=== PATIENT | male | born 1955 | race Caucasian/White ===

== ENCOUNTER 2021-05-31 09:26 | Emergency (ER) | payer MEDICARE, OTHER, SELFPAY ==
[2021-05-31 09:36] VITALS: BP 173/84; PULSE 81; RESP 16; TEMP 36.6; O2SAT 96; BMI 29.1
--- NOTE | 2021-05-31 09:44 | DI.RAD.S_ITS ---
PROCEDURE: XR KNEE LT 3V INDICATIONS: GLF TECHNIQUE: 3 views of the knee were acquired. COMPARISON: None. FINDINGS: Bones: No fractures or dislocations. No suspicious bony lesions. Soft tissues: No joint effusion. No suspicious soft tissue calcifications. Note is made of a small amount of quadriceps tendon and patellar tendon insertion spurring. IMPRESSION: Normal for age except for mild patellar tendon and quadriceps tendon insertion spurring, source of current pain after trauma symptoms is not seen. Dictated by: Laci Degroot M.D. on 05/31/2021 at 10:20 Approved by: Laci Degroot M.D. on 05/31/2021 at 10:20
--- NOTE | 2021-05-31 09:45 | DI.RAD.S_ITS ---
PROCEDURE: XR SCAPULA RT INDICATIONS: GLF TECHNIQUE: 2 views of the scapula were acquired. COMPARISON: None. FINDINGS: Bones: No fractures or dislocations. No suspicious bony lesions. Visualized ribs appear intact. Soft tissues: Overlying soft tissues appear normal. IMPRESSION: Moderately severe AC joint osteoarthritis, no acute trauma found. Dictated by: Laci Degroot M.D. on 05/31/2021 at 10:20 Approved by: Laci Degroot M.D. on 05/31/2021 at 10:21
--- NOTE | 2021-05-31 12:49 | ED.LOWEXIN ---
HPI - Extremity Injury (Lower) General Chief Complaint: Extremity Injury, Lower Stated Complaint: fell yesterday/back and left knee pain Time Seen by Provider: 05/31/21 12:49 Source: patient Mode of arrival: Ambulatory Limitations: no limitations History of Present Illness HPI Narrative: This is a 65-year-old male who comes to the emergency department with complaint of fall yesterday. Patient states he started to fall backwards to his left, twisted towards his right side and fell into his ring back. Patient pain in his left knee. It is worse with weight-bearing and flexion extension. Patient also has some discomfort in his right mid back. Patient denies any bruising or skin changes. No numbness or tingling. He has not had any swelling. He is able to ambulate but is uncomfortable. Patient denies any head injury loss of consciousness. He is not on any anticoagulants. He denies any neck pain. Related Data Allergies Allergy/AdvReac Type Severity Reaction Status Date / Time No Known Drug Allergies Allergy Verified 05/31/21 09:36 Review of Systems Review of Systems ROS Unobtainable: All systems reviewed & are unremarkable except as noted in HPI and below Patient History Social History Smoking Status: Never smoker Smoking Status: Never smoker alcohol intake frequency: holidays/special occasions only Substance Use Type: does not use Exam Narrative Exam Narrative: GENERAL: Alert and oriented x three, male in mild distress patient is seated in recliner. HEENT: Head normocephalic, atraumatic, EOMI, pupils reactive, face symmetric, moist mucous membranes NECK: Supple, full range of motion CARDIOVASCULAR: Regular rate and rhythm without murmurs, rubs or gallops. RESPIRATORY: Breath sounds equal bilaterally, no wheezes rales or rhonchi. ABDOMEN: Soft, nontender. Normoactive bowel sounds all 4 quadrants. No guarding or rebound, rigidity, no mass : No CVA tenderness BACK: No cervical, thoracic or lumbar vertebral point tenderness. Patient has some mild to moderate discomfort at T11-12 over the posterior ribs. Patient is not exquisitely tender. Patient has normal range of motion. Patient's gait is antalgic. EXTREMITIES: No clubbing or edema. Neurovascularly intact. Patient has tenderness over the lateral tibia as the right knee. He has normal range of motion but it is more painful with full extension. As well as full flexion. Patient has negative joint laxity testing. No warmth, erythema. No effusion. Patient is able to weightbear. NEUROLOGICAL: Cranial nerves II through XII grossly intact. Moving all extremities SKIN: Warm, dry, no petechiae, no rashes or lesions. Initial Vital Signs Initial Vital Signs: Vital Signs Temperature 97.8 F 05/31/21 09:36 Pulse Rate 81 05/31/21 09:36 Respiratory Rate 16 05/31/21 09:36 Blood Pressure 173/84 H 05/31/21 09:36 Pulse Oximetry 96 05/31/21 09:36 Course Orders Ordered: ED Orders 05/31/21 09:44 XR knee LT 3V Stat 05/31/21 09:45 XR scapula RT Stat Vital Signs Vital signs: Vital Signs - 8 hr 05/31/21 13:14 Pulse Rate 76 Respiratory Rate 18 Pulse Oximetry 97 MDM - Extremity Injury (Lower) Imaging Data Extremity x-ray #1: Radiologist's Impression: [address] [id number] ReportSigned Patient: Jayce North [facility]#: [id number]: 1955cct:[id number]/Sex: 65 / MDate of Service: 05/31/21Loc: EDAccession Number: [id number] Procedure: XR knee LT 3V Ordering Provider: Jessi Soto D.O. PROCEDURE: XR KNEE LT 3V INDICATIONS: GLF TECHNIQUE: 3 views of the knee were acquired. COMPARISON: None. FINDINGS: Bones: No fractures or dislocations. No suspicious bony lesions. Soft tissues: No joint effusion. No suspicious soft tissue calcifications. Note is made of a small amount of quadriceps tendon and patellar tendon insertion spurring. IMPRESSION: Normal for age except for mild patellar tendon and quadriceps tendon insertion spurring, source of current pain after trauma symptoms is not seen. Dictated by: Laci Degroot M.D. on 05/31/2021 at 10:20 Approved by: Laci Degroot M.D. on 05/31/2021 at 10:20 scapula xray: Radiologist's Impression: [address] [id number] ReportSigned Patient: Jayce North [facility]#: [id number]: 1955cct:[id number]/Sex: 65 / MDate of Service: 05/31/21Loc: EDAccession Number: [id number] Procedure: XR scapula RT Ordering Provider: Jessi Soto D.O. PROCEDURE: XR SCAPULA RT INDICATIONS: GLF TECHNIQUE: 2 views of the scapula were acquired. COMPARISON: None. FINDINGS: Bones: No fractures or dislocations. No suspicious bony lesions. Visualized ribs appear intact. Soft tissues: Overlying soft tissues appear normal. IMPRESSION: Moderately severe AC joint osteoarthritis, no acute trauma found MDM Narrative Medical decision making narrative: Patient was offered crutches. He states he has these at home. Was given Mayur wrap his jeans are tight and he prefers to take this home and place it. Patient was given recommendation to follow up with primary care in the next week if he is not having any improvement. We did discuss there is potential for ligament or tendon involvement. Patient's does have some back discomfort but no other acute changes. He does not have any midline vertebral tenderness. Does not have any other red flag symptoms. Patient defers any narcotic pain medication. All questions answered return precautions discussed. Discharge Plan Departure Patient Disposition: Home Clinical Impression: Injury of knee, left, Back pain Instructions: DI for Knee Pain Activity Restrictions/Additional Instructions: Follow up with your physician next week for recheck if your symptoms are not improving. You may continue with your home medication for pain Use crutches as needed for toe-touch weight-bearing. You may advance and stop using crutches if your pain has not resolved. Use Mayur wrap to the affected area. Splint Care: Keep splint clean and dry. Elevated affected body part to decrease swelling. OK to use ice pack on the affected body part. Use for 15-20 minutes each time, for 5-6x per day. If you develop worsening pain, numbness, tingling, discoloration of the affected body part, ther see your doctor for an urgent re-assessment, or return to the Emergency Department. Return to the Emergency Department for any new or worsening symptoms. Wound Care: Keep wound(s) clean and dry. Wash daily with soap and water only. Do not use over the counter products (alcohol or peroxide)on the wounds unless instructed by a physician. If wound condition worsens (increased/expanding redness, developing fluid blisters, or worsening pain), either contact your doctor for an urgent re-assessment , or return to the Emergency Department. Return to the Emergency Department for any new or worsening symptoms. Referrals: Jonathan Chamberlain DO [Primary Care Provider] -
[2021-05-31 13:14] VITALS: PULSE 76; RESP 18; O2SAT 97
== END 2021-05-31 13:15 | disposition home or self-care (01) ==
PROVIDERS: Emergency Provider Emergency Medicine; PCP Student in an Organized Health Care Education/Training Program
DX: S89.92XA Unspecified injury of left lower leg, initial encounter (principal); M54.6 Pain in thoracic spine
CPT/HCPCS: 73010; 73562; 99283

== ENCOUNTER → 2021-09-14 12:52 | Outpatient (CLI) | payer MEDICARE, OTHER, SELFPAY ==
--- NOTE | 2021-09-14 13:02 | DI.MRI.S_ITS ---
PROCEDURE: MR KNEE LT WO CON INDICATIONS: Sprain of medial collateral ligament of left knee, TECHNIQUE: Noncontrast sagittal PD fast spin echo and T2 fast spin echo with fat saturation, sagittal 3-D FLASH with fat saturation; coronal T1 spin echo and PD fast spin echo with fat saturation, and axial PD fast spin echo with fat saturation through the knee. COMPARISON: None. FINDINGS: Image quality: Excellent. Menisci: The medial and lateral menisci demonstrate normal morphology and internal signal. The meniscal root ligaments appear intact. Cruciate ligaments: The anterior and posterior cruciate ligaments appear intact. Medial structures: Edema surrounding the MCL, compatible with grade 2 injury. Lateral structures: The lateral collateral ligament, long and short heads of the biceps femoris tendon appear intact. The popliteus tendon appears normal. The iliotibial band appears normal. Anterior structures: The quadriceps and patellar tendons appear intact. Patellar alignment is normal. Signal heterogeneity within the lateral patellar facet hyaline cartilage. No edema in the infrapatellar fat pad. Bones and cartilage: No bone marrow contusions or fractures. Signal heterogeneity and fraying of the inner medial femoral condyle hyaline cartilage. The lateral compartment hyaline cartilage is maintained. Joint space: Small knee joint fluid. 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 IMPRESSION: 1. Grade 2 injury of the MCL. 2. Small joint effusion. 3. Degenerative changes of the inner medial femoral condyle and lateral patellar facet hyaline cartilage 4. 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 Dictated by: Tony Rojas M.D. on 09/14/2021 at 14:01 Approved by: Tony Rojas M.D. on 09/14/2021 at 14:11
== END ==
PROVIDERS: PCP Student in an Organized Health Care Education/Training Program; Referring Provider Orthopaedic Surgery; Visit Provider Orthopaedic Surgery
DX: S83.412A Sprain of medial collateral ligament of left knee, initial encounter (principal); M25.462 Effusion, left knee; S89.82XA Other specified injuries of left lower leg, initial encounter
CPT/HCPCS: 73721

== ENCOUNTER 2023-08-05 09:41 | Emergency (ER) | payer MEDICARE, OTHER, SELFPAY ==
[2023-08-05] VITALS (35 sets, daily range): BP systolic 123–207; BP diastolic 62–86; PULSE 30–80; RESP 8–22; TEMP 36.3; O2SAT 95–100; BMI 29.1
--- NOTE | 2023-08-05 09:50 | DI.RAD.S_ITS ---
PROCEDURE: XR CHEST 1V INDICATIONS: chest pain TECHNIQUE: One view of the chest was acquired. COMPARISON: None. FINDINGS: Surgical changes and devices: None. Lungs and pleura: An incomplete inspiratory result is noted, causing a crowded appearance to the lung markings. No focal infiltrates are seen. No pneumothorax or significant pleural effusions are seen. Mediastinum: Mediastinal contours appear normal. Heart size is normal. Bones and chest wall: No suspicious bony lesions. Age-appropriate bony degenerative changes are seen. Overlying soft tissues appear unremarkable. IMPRESSION: Portable chest within normal limits for age. Dictated by: Chito Schaffer M.D. on 08/05/2023 at 9:58 Approved by: Chito Schaffer M.D. on 08/05/2023 at 9:58
[2023-08-05] MEDS: ASPIRIN 81 MG CHEW TAB 324 MG PO (09:57)
[2023-08-05 10:01] LABS: Add Manual Diff / Slide Review NO; Basophils Absolute Auto 200 /uL (0-100); Basophils Percent Auto 1.6 % (0-2); Eosinophils Absolute Auto 700 /uL (0-450); Eosinophils Percent Auto 6.7 % (2-4); Hematocrit 34.6 % (41-53); Hemoglobin 11.7 g/dL (13.5-17.5); Lymphocytes Absolute Auto 2000 /uL (1100-4500); Lymphocytes Percent Auto 20.7 % (25-40); Mean Corpuscular HGB Conc 33.7 % (30-36); Mean Corpuscular Hemoglobin 30.7 PG (26-34); Mean Corpuscular Volume 91.1 fL (80-100); Monocytes Absolute Auto 600 /uL (0-900); Monocytes Percent Auto 5.9 % (3-14); Neutrophils Absolute Auto 6400 /uL (1500-7000); Neutrophils Percent Auto 65.1 % (50-75); Platelet Count 242 X10^3/uL (150-400); Red Cell Distribution Width 13.9 % (11.6-14.8); White Blood Cell Count 9.8 X10^3/uL (4.5-11.0)
--- NOTE | 2023-08-05 10:14 | DI.CT.S_ITS ---
PROCEDURE: CT ANGIO HEAD AND NECK INDICATIONS: VERTIGO X2 DAYS TECHNIQUE: After the administration of intravenous contrast, 1 mm thick sections acquired from the aortic arch through the Solomon of [place]hman. 3-dimensional paybanb-hnhvdxabk-iajudjsahs (MIP) and/or volume rendering reformats were acquired of the central intracranial vasculature and neck separately. For radiation dose reduction, the following was used: automated exposure control, adjustment of mA and/or kV according to patient size. COMPARISON: [facility], CT, CT HEAD/BRAIN WO CON, 08/05/2023, 11:17. [facility], CR, XR CHEST 1V, 08/05/2023, 10:08. FINDINGS: Image quality: Diagnostic. BRAIN: CSF spaces: Ventricles are normal in size and shape. Basal cisterns are patent. No extra-axial fluid collections. Brain: No significant abnormality of the brain can be seen. Skull and face: Calvarium and facial bones appear intact, without suspicious lesions. Orbits appear normal. Sinuses: Sinuses and mastoids are clear. HEAD CT ANGIOGRAPHY: Anterior circulation: Intracranial internal carotid arteries are normal in size and flow. The flow within the paired anterior cerebral arteries is normal and symmetric. Incidental note is made of an accessory anterior cerebral artery branch emanating from the anterior communicating artery itself. The flow within the middle cerebral arteries is normal and symmetric. The anterior communicating artery is seen. No aneurysms are seen. Posterior circulation: Note is made of bilateral type origins of the posterior cerebral arteries, with an associated diminutive basilar artery. The flow within the posterior cerebral arteries is normal and symmetric. The distal vertebral arteries are overall small in size, yet otherwise unremarkable. No aneurysms are seen. NECK CT ANGIOGRAPHY: Carotid system: The great vessels demonstrate a conventional anatomy as they arise from the aortic arch. The origins of the common carotid arteries appear patent. The common carotid arteries demonstrate normal caliber and courses. The bifurcation regions demonstrate focal irregularity and calcification. There is an approximately 90% narrowing seen involving the left proximal internal carotid artery. Within the right proximal internal carotid artery, there is 60-70% narrowing. The more distal internal carotid arteries demonstrate normal course and caliber. However, the flow within the left internal carotid artery is reduced compared to the right. Posterior circulation: The origins of the vertebral arteries both appear widely patent. The more superior extracranial portions of both vertebral arteries also demonstrate normal courses and calibers. They join to form a normal appearing basilar artery. Soft tissues: Visualized neck soft tissues demonstrate no suspicious abnormalities. Bones: No suspicious bony lesions. Visualized cervical spine appears normally aligned. Moderate cervical spine degenerative change can be seen. IMPRESSION: There is a flow limiting stenosis approximately 90% within the left proximal internal carotid artery, with slightly decreased flow within the left internal carotid artery compared to the right. - Vascular surgery consultation is recommended. There is a 60-70% stenosis seen involving the right proximal internal carotid artery. No significant vertebral artery abnormality is seen. No significant intracranial arterial abnormality is seen. Additional findings: [id number]-ct-[id number] developmental anomalies Moderate cervical spine degenerative change Any quantitative measurements of stenosis were performed using NASCET criteria. Dictated by: Chito Schaffer M.D. on 08/05/2023 at 10:57 Approved by: Chito Schaffer M.D. on 08/05/2023 at 11:00
--- NOTE | 2023-08-05 10:14 | DI.CT.S_ITS ---
PROCEDURE: CT HEAD/BRAIN WO CON INDICATIONS: VERTIGO X2 DAYS TECHNIQUE: Noncontrast 4.5 mm thick angled axial sections acquired from the foramen magnum to the vertex, with coronal and sagittal reformats. For radiation dose reduction, the following was used: automated exposure control, adjustment of mA and/or kV according to patient size. COMPARISON: [facility], CT, CT ANGIO HEAD AND NECK, 08/05/2023, 11:17. FINDINGS: Image quality: Excellent. CSF spaces: Basal cisterns are patent. No extra-axial fluid collections. The ventricles are symmetric in size and shape. Brain: Areas of low density can be seen scattered throughout the brain, which are worst involving the anterior left frontal lobe. No intracranial bleeds or masses. There is cerebral volume loss for age, with resultant ventricular and sulcal prominence. There are periventricular and deep white matter chronic small vessel ischemic changes. There is intracranial internal carotid artery atherosclerosis. Skull and face: Calvarium and visualized facial bones appear intact, without suspicious lesions. Sinuses: Mild mucosal thickening can be seen within the ethmoid air cells. The paranasal sinuses otherwise appear clear. No abnormal fluid is seen within the mastoid air cells. IMPRESSION: Areas of low density can be seen scattered throughout the brain, which are worst involving the anterior left frontal lobe. Areas of prior infarction are suspected. Metastatic disease is possible, yet considered to be less likely. If it would be helpful for clinical management decision making, please consider a dedicated, scheduled brain MRI (without and with contrast) for further evaluation (assuming that there is no contraindication). Dictated by: Chito Schaffer M.D. on 08/05/2023 at 10:53 Approved by: Chito Schaffer M.D. on 08/05/2023 at 10:56
--- NOTE | 2023-08-05 10:15 | ED_ITS ---
HPI - SOB/Dyspnea General Chief Complaint: Shortness of Breath/Dyspnea Stated Complaint: SOB/dizzy/weak/lightheaded Time Seen by Provider: 08/05/23 09:56 Source: patient and family Mode of arrival: Ambulatory Limitations: no limitations History of Present Illness HPI Narrative: 67-year-old male with history of hypertension, hyperlipidemia, [id number] diabetes presents by private vehicle from home for 2 days of vertigo, shortness of breath, intermittent chest pains. Patient states that symptoms have been present for approximately 2 months, but significantly worse in the last 2 days. He states that he is having troubles doing his ADLs due to the vertigo. He is scheduled for a stress test and echo due to shortness of breath, however this is not scheduled until later this week. Denying chest pain at this time. Related Data Home Medications Medication Instructions Recorded Confirmed aspirin 81 mg tablet 81 mg PO DAILY 08/05/23 08/05/23 atorvastatin 40 mg tablet 40 mg PO DAILY 08/05/23 08/05/23 metformin 500 mg tablet,extended 500 mg PO BID 08/05/23 08/05/23 release 24 hr metoprolol succinate 50 mg 50 mg PO QAM blood pressure 08/05/23 08/05/23 tablet,extended release 24 hr sitagliptin phosphate 100 mg 100 mg PO DAILY 08/05/23 08/05/23 tablet (Januvia) tadalafil 20 mg tablet 20 mg PO DAILY PRN Erectile 08/05/23 08/05/23 Dysfunction Allergies Allergy/AdvReac Type Severity Reaction Status Date / Time No Known Drug Allergies Allergy Verified 08/05/23 09:51 Review of Systems Review of Systems Narrative: CONSTITUTIONAL- Denies: fever, chills, fatigue HEENT- Denies: sore throat, nosebleed, vision changes RESPIRATORY-reports: Shortness of breath Denies: cough, wheezing CARDIAC-reports: chest pain Denies: chest pain, edema, orthopnea GI- Denies: abdominal pain, nausea, vomiting, constipation, diarrhea - Denies: frequency, dysuria, hematuria, flank pain MSK- Denies: extremity pain, extremity swelling, joint pain, joint swelling SKIN- Denies: rash, itching, burn, swelling NEUROLOGICAL-reports: Vertigo Denies: headache, numbness, weakness, dizziness PSYCHIATRIC- Denies: anxiety, depression, suicidal ideation, homicidal ideation Patient History Social History Smoking Status: Former smoker Smoking Status: Former smoker alcohol intake frequency: holidays/special occasions only Substance Use Type: does not use Exam Initial Vital Signs Initial Vital Signs: Vital Signs Temperature 97.3 F L 08/05/23 09:45 Pulse Rate 63 08/05/23 09:45 Respiratory Rate 18 08/05/23 09:45 Blood Pressure 207/86 H 08/05/23 09:45 Pulse Oximetry 99 08/05/23 09:45 Oxygen Delivery Method Room Air 08/05/23 09:45 Const: Well-nourished, Well-developed, appears stated age Eyes: PERRL, EOMI, conjunctiva normal ENT: Atraumatic, dentition normal, mucous membranes moist Cardiac: regular rate, regular rhythm RESP: unlabored, clear bilaterally, no wheezing GI: Atraumatic, soft, nontender, nondistended, no rebound, no guarding MSK: Atraumatic, full range of motion, pulses equal Skin: Warm, Dry, intact, no rashes Neuro: AO x3, CN II-XII grossly intact, moves all extremities Psych: affect normal, mood normal, not suicidal, not homicidal Course Course Course Narrative: Nontoxic patient presenting for intermittent vertigo, worsened over the last 2 days. NIH currently 0. Vitals initially hypertensive, however after resting BP normalized. Due to vague and worsening nature of the vertigo will obtain CT brain with CT angio of head and neck. Orders Ordered: ED Orders 08/05/23 09:50 XR chest 1V Stat EKG-12 Lead Stat 08/05/23 09:55 COVID19 -Nasal RAPID Stat Complete Blood Count AUTO DIFF Stat Comprehensive Metabolic Panel Stat Lipase Stat Magnesium Stat NT-proBNP (BNP-Adult 18+) Stat PTT Partial Thromboplastin Dami Stat Prothrombin Time INR Stat Troponin & CK Cardiac Panel Stat 08/05/23 10:14 CT angio head and neck Stat CT head/brain wo con Stat 08/05/23 12:30 MR head/brain wo con Stat 08/05/23 12:46 EKG-12 Lead Routine 08/05/23 14:33 EKG-12 Lead Stat Dopamine HCl/Dextrose (Dopamine 400 Mg-D5w 250 Ml) 400 mg in 250 mls @ 8.888 mls/hr IV TITRATE JAMEEL; Protocol Last Admin: 08/05/23 14:58 Dose: 2.5 mcg/kg/min, 8.888 mls/hr Documented By: TAMERA Discontinued Medications Aspirin (Aspirin 81 Mg Chew Tab) 324 mg PO NOW ONE Stop: 08/05/23 09:51 Last Admin: 08/05/23 09:57 Dose: 324 mg Documented By: TAMERA Atropine Sulfate (Atropine 1 Mg/10 Ml Syringe) 1 mg IV NOW ONE Stop: 08/05/23 14:34 Last Admin: 08/05/23 14:36 Dose: 1 mg Documented By: JULIANO Glucagon (Glucagon,Human Recombinant 1 Mg/Ml Vial) 5 mg IV NOW ONE Stop: 08/05/23 14:39 Hydrogen Peroxide/Benzyl Alcohol (Hydrogen Peroxide 473 Ml Solution) 15 ml TOP NOW ONE Stop: 08/05/23 10:40 Reevaluation(s) Reevaluation #1: CT brain is concerning for multiple small infarcts. 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 Images pushed to [facility]. Case discussed with Neurology, who stated that the carotid artery stenosis and brain imaging findings do not explain why patient has had vertigo. They recommended getting an MRI. If the MRI shows acute infarcts and they will accept the patient for transfer for stroke workup, however if these are chronic then patient has no emergent need for transfer for CVA. MRI ordered, patient and updated of plan. Reevaluation #2: Shortly after patient arrived back from [facility] his heart rate dropped from the 50s to the 30s. EKG appeared to show complete heart block. No change in heart rate with 1 mg atropine. Patient placed on pacer pads with cardiac monitoring. Patient does take 50 mg of metoprolol, however his electrolytes are within normal limits, kidney function normal, patient has had no recent medication changes, and he is not taken any extra medications today. MRI of the brain shows old left-sided infarct, there is no evidence of the possible infarcts seen on the CT of the brain. Stat call placed to electrophysiology at [facility]. They reviewed the EKG and recommended initiating 2.5 micrograms/kilogram per minute of dopamine to see if this improves his heart rate. Ideally I would like to place a transvenous pacer, however I was informed by nursing staff that we do not have this available to us in this hospital. Discussed with EP, they requested a emergent transfer to outside hospital for rapid pacemaker placement. Call placed to schedule emergency physician and they were informed of the patient's impending transfer. Vital Signs Vital signs: Vital Signs - 8 hr 08/05/23 09:45 08/05/23 09:46 08/05/23 09:47 Temperature 97.3 F L Pulse Rate 63 80 Respiratory Rate 18 Blood Pressure 207/86 H 207/86 H Pulse Oximetry 99 99 Oxygen Delivery Method Room Air 08/05/23 09:47 08/05/23 10:00 08/05/23 10:00 Temperature Pulse Rate 78 62 Respiratory Rate 13 Blood Pressure 140/63 Pulse Oximetry 99 97 Oxygen Delivery Method Room Air 08/05/23 10:15 08/05/23 10:30 08/05/23 10:30 Temperature Pulse Rate 65 63 Respiratory Rate 15 12 Blood Pressure 136/62 Pulse Oximetry 99 97 Oxygen Delivery Method 08/05/23 10:45 08/05/23 11:00 08/05/23 11:00 Temperature Pulse Rate 61 62 Respiratory Rate 11 L 14 Blood Pressure 127/68 Pulse Oximetry 98 97 Oxygen Delivery Method 08/05/23 11:20 08/05/23 11:30 08/05/23 11:30 Temperature Pulse Rate 57 L 54 L Respiratory Rate 13 10 L Blood Pressure 149/70 H Pulse Oximetry 99 97 Oxygen Delivery Method 08/05/23 11:45 08/05/23 12:00 08/05/23 12:00 Temperature Pulse Rate 54 L 57 L Respiratory Rate 12 16 Blood Pressure 123/65 Pulse Oximetry 96 98 Oxygen Delivery Method 08/05/23 12:15 08/05/23 12:30 08/05/23 12:31 Temperature Pulse Rate 55 L 55 L 56 L Respiratory Rate 9 L 15 13 Blood Pressure Pulse Oximetry 99 100 99 Oxygen Delivery Method 08/05/23 12:31 08/05/23 12:45 08/05/23 12:46 Temperature Pulse Rate 30 L 56 L Respiratory Rate 9 L 12 Blood Pressure 193/77 H Pulse Oximetry 100 100 Oxygen Delivery Method 08/05/23 12:46 08/05/23 13:00 08/05/23 13:00 Temperature Pulse Rate 55 L Respiratory Rate 11 L Blood Pressure 140/69 145/86 H Pulse Oximetry 100 Oxygen Delivery Method 08/05/23 13:15 08/05/23 14:21 08/05/23 14:25 Temperature Pulse Rate 55 L 32 L Respiratory Rate 14 Blood Pressure 159/65 H Pulse Oximetry 100 95 Oxygen Delivery Method Room Air 08/05/23 14:25 08/05/23 14:30 08/05/23 14:36 Temperature Pulse Rate 35 L 35 L Respiratory Rate 15 8 L Blood Pressure 168/72 H Pulse Oximetry 98 100 Oxygen Delivery Method 08/05/23 14:36 08/05/23 14:39 08/05/23 14:39 Temperature Pulse Rate 35 L 35 L Respiratory Rate 13 21 Blood Pressure 164/70 H Pulse Oximetry 98 100 Oxygen Delivery Method 08/05/23 14:40 08/05/23 14:40 08/05/23 14:41 Temperature Pulse Rate 37 L Respiratory Rate 22 Blood Pressure 142/66 H 140/67 Pulse Oximetry 99 Oxygen Delivery Method 08/05/23 14:41 08/05/23 14:42 08/05/23 14:42 Temperature Pulse Rate 36 L 36 L Respiratory Rate 14 8 L Blood Pressure 152/68 H Pulse Oximetry 99 99 Oxygen Delivery Method 08/05/23 14:43 08/05/23 14:43 08/05/23 14:44 Temperature Pulse Rate 35 L 35 L Respiratory Rate 10 L 15 Blood Pressure 146/67 H Pulse Oximetry 99 100 Oxygen Delivery Method 08/05/23 14:44 08/05/23 14:45 08/05/23 14:50 Temperature Pulse Rate 35 L 36 L Respiratory Rate 12 19 Blood Pressure 150/67 H Pulse Oximetry 99 100 Oxygen Delivery Method 08/05/23 14:55 08/05/23 15:00 08/05/23 15:05 Temperature Pulse Rate 36 L 35 L 34 L Respiratory Rate 10 L 16 16 Blood Pressure 150/67 H Pulse Oximetry 100 99 99 Oxygen Delivery Method 08/05/23 15:10 Temperature Pulse Rate 35 L Respiratory Rate 20 Blood Pressure 148/68 H Pulse Oximetry 99 Oxygen Delivery Method MDM - SOB/Dyspnea Differential Diagnosis Differential diagnosis: Likely congestive heart failure, community acquired pneumonia and asthma with exacerbation Lab Data 08/05/23 09:55 08/05/23 09:55 Labs: Lab Results 08/05/23 08/05/23 08/05/23 Range/Units 09:55 09:55 09:55 WBC 9.8 (4.5-11.0) X10^3/uL RBC 3.80 L (4.5-5.9) X10^6/uL Hgb 11.7 L (13.5-17.5) g/dL Hct 34.6 L (41-53) % MCV 91.1 (80-100) fL MCH 30.7 (26-34) PG MCHC 33.7 (30-36) % RDW 13.9 (11.6-14.8) % Plt Count 242 (150-400) X10^3/uL Neut % (Auto) 65.1 (50-75) % Lymph % (Auto) 20.7 L (25-40) % Isabela % (Auto) 5.9 (3-14) % Eos % (Auto) 6.7 H (2-4) % Baso % (Auto) 1.6 (0-2) % Neut # (Auto) 6400 (3205-8775) /uL Lymph # (Auto) 2000 (1445-8478) /uL Isabela # (Auto) 600 (0-900) /uL Eos # (Auto) 700 H (0-450) /uL Baso # (Auto) 200 H (0-100) /uL PT 10.6 (10.1-12.7) SECONDS INR 0.9 (0.9-1.3) APTT 31 (26-36) SECONDS Sodium 141 (137-145) mmol/L Potassium 4.2 (3.4-5.1) mmol/L Chloride 108 H (98-107) mmol/L Carbon Dioxide 24 (22-32) mmol/L BUN 9 (9-20) mg/dL Creatinine 1.01 (0.66-1.25) mg/dL Estimated GFR > 60 (>60) mL/min BUN/Creatinine Ratio 8.9 (6-22) Glucose 143 H (80-110) mg/dL Calcium 8.8 (8.4-10.2) mg/dL Magnesium 1.8 (1.6-2.3) mg/dL Total Bilirubin 0.2 (0.2-1.3) mg/dL AST 28 (17-59) IU/L ALT 27 (<50) IU/L Alkaline Phosphatase 101 (38-126) U/L Total Creatine Kinase 126 (55-170) U/L Troponin I < 0.012 (0.01-0.034) ng/mL NT-Pro-B Natriuret Pep 318 H (<125) pg/mL Total Protein 7.3 (6.3-8.2) g/dL Albumin 4.4 (3.5-5.0) g/dL Globulin 2.9 (1.7-4.1) g/dL Albumin/Globulin Ratio 1.5 (1.0-2.8) Lipase 67 (23-300) U/L SARS-CoV-2 (PCR) (Negative) 08/05/23 Range/Units 09:55 WBC (4.5-11.0) X10^3/uL RBC (4.5-5.9) X10^6/uL Hgb (13.5-17.5) g/dL Hct (41-53) % MCV (80-100) fL MCH (26-34) PG MCHC (30-36) % RDW (11.6-14.8) % Plt Count (150-400) X10^3/uL Neut % (Auto) (50-75) % Lymph % (Auto) (25-40) % Isabela % (Auto) (3-14) % Eos % (Auto) (2-4) % Baso % (Auto) (0-2) % Neut # (Auto) (8628-4433) /uL Lymph # (Auto) (1594-1490) /uL Isabela # (Auto) (0-900) /uL Eos # (Auto) (0-450) /uL Baso # (Auto) (0-100) /uL PT (10.1-12.7) SECONDS INR (0.9-1.3) APTT (26-36) SECONDS Sodium (137-145) mmol/L Potassium (3.4-5.1) mmol/L Chloride (98-107) mmol/L Carbon Dioxide (22-32) mmol/L BUN (9-20) mg/dL Creatinine (0.66-1.25) mg/dL Estimated GFR (>60) mL/min BUN/Creatinine Ratio (6-22) Glucose (80-110) mg/dL Calcium (8.4-10.2) mg/dL Magnesium (1.6-2.3) mg/dL Total Bilirubin (0.2-1.3) mg/dL AST (17-59) IU/L ALT (<50) IU/L Alkaline Phosphatase (38-126) U/L Total Creatine Kinase (55-170) U/L Troponin I (0.01-0.034) ng/mL NT-Pro-B Natriuret Pep (<125) pg/mL Total Protein (6.3-8.2) g/dL Albumin (3.5-5.0) g/dL Globulin (1.7-4.1) g/dL Albumin/Globulin Ratio (1.0-2.8) Lipase (23-300) U/L SARS-CoV-2 (PCR) Negative (Negative) Urine Dip Bedside Urine Glucose Negative Bedside Urine Bilirubin - Negative Bedside Urine Ketone - Negative Urine Specific [place] 1.005 Bedside Urine Occult Blood - Negative Bedside Urine pH 6.0 Bedside Urine Protein - Negative Bedside Urine Urobilinogen - Negative Bedside Urine Nitrite - Negative Bedside Urine Leukocytes - Negative Esterase ECG Data Attestation: I personally reviewed and interpreted this ECG as follows: Prior ECG tracings: available for review Interpretation: Complete heart block, rate 34 beats per minute. No STEMI Critical Care Time Critical Care Time Critical Care Time: Yes Total Critical Care Time: 92 Attestation: Discussion with patient, discussion with Neurology, discussion with EP, correction of complete heart block, frequent reassessments, hemodynamic monitoring, cardiac output assessment Discharge Plan Departure Patient Disposition: [facility] Clinical Impression: CHB (complete heart block), Shortness of breath, Vertigo, Impacted ear wax Prescriptions: No Action atorvastatin 40 mg tablet 40 mg PO DAILY metoprolol succinate 50 mg tablet extended release 24 hr 50 mg PO QAM aspirin 81 mg Tablet 81 mg PO DAILY metformin 500 mg tablet extended release 24 hr 500 mg PO BID tadalafil 20 mg tablet 20 mg PO DAILY PRN (Reason: Erectile Dysfunction) Januvia 100 mg tablet 100 mg PO DAILY Referrals: Provider,John BUITRAGO [Primary Care Provider] -
[2023-08-05 10:23] LABS: INR 0.9 (0.9-1.3); Prothrombin Time 10.6 SECONDS (10.1-12.7)
[2023-08-05 10:25] LABS: PTT Partial Thromboplastin Tim 31 SECONDS (26-36)
[2023-08-05 10:26] LABS: COVID19 -Nasal RAPID Negative (Negative)
[2023-08-05 10:27] LABS: Alanine Aminotransferase 27 IU/L (<50); Albumin 4.4 g/dL (3.5-5.0); Albumin Globulin Ratio 1.5 (1.0-2.8); Alkaline Phosphatase 101 U/L (38-126); Aspartate Aminotransferase 28 IU/L (17-59); BUN Creatinine Ratio 8.9 (6-22); Bilirubin Total 0.2 mg/dL (0.2-1.3); Blood Urea Nitrogen 9 mg/dL (9-20); Calcium 8.8 mg/dL (8.4-10.2); Carbon Dioxide 24 mmol/L (22-32); Chloride 108 mmol/L (98-107); Creatine Kinase 126 U/L (55-170); Estimated Glomerular Filt Rate > 60 mL/min (>60); Globulin 2.9 g/dL (1.7-4.1); Glucose 143 mg/dL (80-110); HEMOLYSIS < 15 (0-50); Lipase 67 U/L (23-300); Magnesium 1.8 mg/dL (1.6-2.3); Potassium 4.2 mmol/L (3.4-5.1); Sodium 141 mmol/L (137-145); Total Protein 7.3 g/dL (6.3-8.2)
[2023-08-05 10:39] LABS: NT-proBNP (BNP-Adult 18+) 318 pg/mL (<125); Troponin I < 0.012 ng/mL (0.01-0.034)
--- NOTE | 2023-08-05 11:25 | PC.NURSE ---
HYdrogen peroxide, 2ml poured into bilateral ears per Dr. Barahona's verbal order.
--- NOTE | 2023-08-05 12:30 | DI.MRI.S_ITS ---
PROCEDURE: MR HEAD/BRAIN WO CON INDICATIONS: MULTIPLE INFARCTS IN BRAIN TECHNIQUE: Non-contrast axial T1 spin echo, axial T2 fast spin echo, sagittal and axial FLAIR, coronal T2 fast spin echo, axial gradient echo, axial diffusion and ADC through the brain. COMPARISON: [facility], CT, CT HEAD/BRAIN WO CON, 08/05/2023, 11:17. FINDINGS: Image quality: Excellent. CSF spaces: Ventricles appear symmetric in size and shape. Basal cisterns are patent. No extra-axial fluid collections. Brain: Small old left frontal infarct. No intracranial bleeds or mass effects. There is cerebral volume loss for age. There are periventricular and deep white matter chronic small vessel ischemic changes. Brainstem appears normal. Diffusion-weighted images show no acute ischemic insults. No chronic ischemic insults. Normal intravascular flow voids are present. Skull and face: Calvarial bone marrow is normal in signal. Orbits are normal. Sinuses: There is mild bilateral frontal, ethmoidal and maxillary sinus mucosal thickening. The mastoids are clear. IMPRESSION: 1. No acute intracranial abnormalities. 2. Small left frontal infarct. No acute cerebral ischemia. 3. Cerebral volume loss and chronic microvascular ischemic changes. 4. Mild paranasal sinus disease. Dictated by: Radha Sullivan M.D. on 08/05/2023 at 14:11 Approved by: Radha Sullivan M.D. on 08/05/2023 at 14:14
--- NOTE | 2023-08-05 14:32 | PC.NURSE ---
Pt's HR 35, Dr. Barahona notified EKG obtained. Pt complains of feeling light headed and fatigued.
[2023-08-05] MEDS: ATROPINE 1 MG/10 ML SYRINGE IV (14:36)
--- NOTE | 2023-08-05 14:52 | PC.NURSE ---
pt alert and oriented x4.
[2023-08-05] MEDS: DOPAMINE HCL IN DEXTROSE 5 % 400 MG/250 ML PLAST..BAG 8.888 MG IV (14:58)
== END 2023-08-05 15:26 | disposition short-term general hospital (02) ==
PROVIDERS: Emergency Provider Emergency Medicine
DX: I44.2 Atrioventricular block, complete (principal); R06.02 Shortness of breath; R42 Dizziness and giddiness; H61.23 Impacted cerumen, bilateral; Z20.822 Contact with and (suspected) exposure to COVID-19
CPT/HCPCS: 36415; 70450; 70496; 70498; 70551; 71045; 80053; 81003; 82550; 83690; 83735; 83880; 84484; 85025; 85610; 85730; 87635; 93005; 93010; 96365; 96375; 99285; 99291; C9803; J0461; Q9967

== ENCOUNTER 2023-10-31 11:12 | Outpatient (RCR) | payer MEDICARE, OTHER, SELFPAY ==
--- NOTE | 2023-10-31 13:56 | OT.OP.DC ---
Visit Care Team Role Provider Type Francesca Montyoa DO Family Provider Non-Staff Primary Care Provider Address: [address] [place] [address], [place], [address] Email: Maricruz Landon MD Attending Provider Non-Staff Referring Provider Address: [address] [place] [address], [address] Email: OT Outpatient OT Outpatient Adult Evaluation Start: 10/31/23 13:17 Freq: Status: Active Protocol: Document 10/31/23 13:18 AMS (Rec: 10/31/23 13:55 AMS [id number]) General Information - Adult Visit Information Visit Number 12/11 Insurance Information Medicare Session Time Visit Start Time 12:30 Visit Stop Time 13:15 Total Visit Minutes 45 Setting Treatment Setting Outpatient Care Visit Type Note Type Initial Evaluation Identification Identification Confirmed Yes Identification Confirmed By Self Assessment/Plan Assessment Treatment Assessment Jayce is a 67 year-old right hand dominant male referred to outpatient OT secondary to L MCA CVA that occurred on . PMH: essential HTN; left carotid stenosis; pacemaker, R rotator cuff injury, Type 2 DM, arthritis, cataracts. (+) wearing of glasses which supports reading /writing; (+) intent on having cataract surgery. He has an appt scheduled in January 2024 to see neuro opthalmologist. (+) wearing of glasses; has adjusted setting (s) on phone and personal computer (15-inch in size), as well as uses 2 different handheld magnifiers and a magnifying system he can position on his head w/ 2 different magnifications for viewing of coin collection. Additional Medical History gathered from WEB MOBILE DESIGNER/verbal interview: Jayce presented to ED w/ vertigo and shortness of breath on 08/05/23; MRI revealed old L sided infarct but no acute intracranial anomalies. He was transferred immediately d/t change in stats w/ emergency placement of pacemaker. Jayce is currently being seen by outpatient WEB MOBILE DESIGNER d/t word finding difficulties; he is reading and doing word searches. He and his also plan on investing in an kamala that has been recommended by outpatient WEB MOBILE DESIGNER. Jayce reported R LE pain/discomfort initially presented in May/ June of this year and that he became aware of it while navigating stairs within his home. Jayce intends on being evaluated by outpatient PT; evaluation appt is scheduled for December of 2023. He presented without mobility and AE and no losses of balance were observed. 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 He currently is not driving. He denies any difficulties w/ functional activities, including tying of shoe laces and managing buttons/zippers, although, handwriting is impacted without use of glasses and when trying to execute task too quickly. (+) awareness of need to reduce speed of execution w/ resulting improved legibility (w/ improved letter/number spacing, decreased letter/ number exclusion, and decreased dragging of pen between letter/number formation). Jayce also demonstrated good R handed dynamic grasp w/ writing tool use, good contralateral paper stabilization, and good hand/ digit strength. Dynamometer II strength findings were as follows: 110.0# of force R steamer operator (compared to 65-69 y.o. male norms 91.1 +/- 20.6) and 108.0# of force L steamer operator ( compared to 65-69 y.o. male norms 76.8 +/- 19.8). Pinchometer strength findings were as follows: 24.0# of force R lateral russo pinch ( compared to 65-69 y.o. male norms 23.4 +/- 3.9) vs 24.0# of force L lateral russo pinch ( compared to 65-69 y.o. male norms 22.0 +/- 3.6); 19.0# of force R 3-jaw pinch (compared to 65-69 y.o. male norms 21.4 +/- 3.0) vs 17.5# of force L 3 -jaw pinch (compared to 65-69 y.o. male norms 21.2 +/- 4.1); 14.0# of force R tip pinch ( compared to 65-69 y.o. male norms 17.0 +/- 4.2) vs 12.5# of force L tip pinch (compared to 65-69 y.o. male norms 15.4 +/- 2.9). Based on findings, rec d/c from outpatient OT at this time. No further OT treatment is recommended. Recommend follow-up with outpatient WEB MOBILE DESIGNER, being seen by outpatient PT, and following up w/ vision specialists. Plan Patient Recommendations Discharge from Occupational Therapy Comment Rec WEB MOBILE DESIGNER and PT Functional Wrist/Hand Scan Hand Side Sensory Assessment Sensory Profile2
== END 2023-11-05 10:36 | disposition home or self-care (01) ==
LOC: OT 11:12
PROVIDERS: Family Provider Family Medicine; PCP Family Medicine; Referring Provider Physical Medicine & Rehabilitation Hospice and Palliative Medicine; Visit Provider Physical Medicine & Rehabilitation Hospice and Palliative Medicine
DX: I63.412 Cerebral infarction due to embolism of left middle cerebral artery (principal)
CPT/HCPCS: 97165; 97530

== ENCOUNTER 2023-11-07 11:30 | Outpatient (RCR) | payer MEDICARE, OTHER, SELFPAY ==
--- NOTE | 2023-10-21 17:46 | ST.OP.ACL ---
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 Adult Cognitive Linguistic Eval Start: 10/17/23 13:27 Freq: Status: Active Protocol: Document 10/17/23 13:30 CG (Rec: 10/17/23 13:31 CG [id number]) Adult Cognitive Linguistic Evaluation Session Time Visit Start Time 11:30 Visit Stop Time 12:30 Total Visit Minutes 60 Visit Information Visit Number 1 Plan of Care Dates 10/17/23-01/17/24 Referral Referring Provider Maricruz Landon MD ( [facility]) Reason for Referral Aphasia s/p CVA Setting Assessment Location Outpatient Care Visit Type Note Type Initial evaluation Next Note Type Next Note Type Treatment Note Patient Information Identification Type Name Patient History Jayce North is a 67-year- old male presenting today for a cognitive-linguistic evaluation due to ongoing concerns about word-finding 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 His recent medical events began in August (08/05/23), in which he presented to the ED at this hospital with vertigo and shortness of breath. An MRI at the time discovered an old L sided infarct, but no acute intracranial anomalies. Shortly after MRI, pt's HR dropped to the 30's and EKG showed complete heart block. He was transferred to another hospital for emergency pacemaker placement. After this, records of medical events are unclear; however, pt states that he had multiple TIA's before being admitted to [facility] with a CVA on Sep 27. 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 The pt denies having had difficulty swallowing, and continues to deny dysphagia. The pt stated that his speech had improved since initial event, but that he continues to have difficulty with word- finding occasionally, and he has particular trouble with reading and writing. He stated he has difficulty understanding written words, and that it's very hard to read. He states he often has to read letter by letter, especially for longer words. He is also concerned about his handwriting, but does have referral for occupational therapy. His difficulties with reading are exacerbated by remaining visual deficits. Although he was unable to describe a clear visual cut, he stated that he is only able to see and focus on one or two letters at a time and that his vision impairment has caused him to stop driving. He does have a referral to see a neuro-opthamologist, which is scheduled in January. He is seeing his regular opthamologist on Oct 29. In terms of speech difficulties, he reported he has the most difficulty with word-finding of low-frequency/ high-specificity words. When he is unable to think of a word, he states that he gets frustrated. Occasionally, he will use a circumlocution/ description strategy to describe a word he can't remember. The pt also stated that he was originally planning to retire before his recent string of medical events took place; however, since his CVA, his doctors encouraged him to continue working in a familiar environment to promote cognitive-linguistic rehabilitation. Therefore the pt decided to continue work for at least a few months. Occupation Status Employed Hearing Hearing Level Normal Vision Vision Status Impaired Subjective Patient Report The pt attended his evaluation independently for the first 25 minutes before his joined with pt permission. He was pleasant, alert, oriented , and able to recall most of his recent medical history and ongoing symptoms. He independently ambulated to the evaluation room without difficulty. He had independently completed the new patient intake form, but did state that he had trouble doing so. Mental Status Alert,Responsive,Cooperative Assessment Oral Motor Examination Completed No Results Oral motor structure and function appear grossly intact for speech/swallow Informal Assessment Receptive Language Normal Yes Expressive Language Normal No Expressive Language Impairment(s) Expression of complex thoughts /ideas,Written expression Pragmatic Language Normal Yes Speech Normal No Speech Impairment(s) Slow speech rate Cognition Normal Yes Formal Assessment Standardized Test/Screener Type Quick Aphasia Battery (QAB) Administration Complete Results Word comprehension 10.00/10.00 Sentence comprehension 10./ 10.00 Word finding 9./10.00 Grammatical construction 8.13/ 10.00 Speech motor programming ..00 Repetition 9./10.00 Reading 9.17/10.00 QAB overall 9.25/10.00 In addition to the Quick Aphasia Battery, an informal probe of divergent naming was assessed in which the pt was asked to name as many animals as possible within one minute. He was able to name 12 animals before he stated his mind went blank. When asked how he felt about the task, the pt stated that divergent naming tasks were particularly difficult for him. Findings/Results Language Function Mildly impaired Cognitive Function Within functional limits Findings Based on the results of the Quick Aphasia Battery in addition to pt interview, pt history, and informal probes, the pt presents with mild nonfluent aphasia with deficits in word-finding of complex/high specificity words in addition to deficits in reading, deficits in divergent naming abilities, and suspected deficits in visual attention and phonology. Word- finding deficits cause frustration and embarassment for the pt, and reading deficits make it difficult for pt to complete IADLs including filling out forms and reading important information (e.g. medication labels). Given the pt's deficits and their emotional and functional impact, speech- language therapy is recommended once every 1-2 weeks throughout the duration of the POC with the goal of decreasing instances of word- finding and developing compensatory strategies for reading and expressive language. Cognitive Communication Deficits Self-awareness of Cognitive- Predictive awareness (able to Communication Deficits predict problem; impact of impairments) Concomitant Factors Concomitant Factors Visual field neglect Prognosis Prognosis Good Based on Cognitive status,Family support Plan of Care Speech-Language Treatment Yes Frequency once every 1-2 weeks Duration 3 months Patient/Caregiver Education Described results of evaluation,Patient expressed understanding of evaluation, Family/caregivers expressed understanding of evaluation, Family/caregivers expressed agreement with goals and treatment plan,Patient requires further education/ training,Family/caregivers require further education/ training Short Term Goals 1. Pt will complete impairment -based approaches including semantic and phonological approaches (i.e. SFA, CIVIL ESTIMATOR) with 80% accuracy independently in order to restore the semantic and phonological network. 2. Pt will demonstrate understanding of compensatory strategies for word-finding (i .e. circumlocution, first letter, category, etc) in order to decrease instances of communicative breakdown and reduce frustration with word- finding difficulties. 3. Pt will complete reading tasks by reading short paragraphs with 80% accuracy ( 80% of words read accurately) at a rate of at least 150 words per minute. Skilled Nursing Goals Pt will be able to accurately and efficiently communicate complex thoughts and ideas in order to decrease frustration and return to PLOF. Pt will understand and recall compensatory strategies for expressive language and reading/visual attention in order to promote independence with strategies outside of language therapy. Discharge Recommendations Home
--- NOTE | 2023-10-21 17:46 | ST.OPPOC ---
Physical, Occupational & Speech Therapy At [facility] Visit Care Team Role Provider Type Francesca Montoya DO Family Provider Non-Staff Primary Care Provider Address: [address] [place] [address], [place], [address] Maricruz Landon MD Attending Provider Non-Staff Referring Provider Address: [address] [place] [address], [place], [address] Speech Pathology Plan of Care Plan of Care Dates 10/17/23-01/17/24 Referring Provider Maricruz Landon MD ([facility]) Patient History Jayce North is a 67-year-old male presenting today for a cognitive-linguistic evaluation due to ongoing concerns about word-finding 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 His recent medical events began in August (08/05/23), in which he presented to the ED at this hospital with vertigo and shortness of breath. An MRI at the time discovered an old L sided infarct, but no acute intracranial anomalies. Shortly after MRI, pt's HR dropped to the 30's and EKG showed complete heart block. He was transferred to another hospital for emergency pacemaker placement. After this, records of medical events are unclear; however, pt states that he had multiple TIA's before being admitted to [facility] with a CVA on Sep 27. 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 The pt denies having had difficulty swallowing, and continues to deny dysphagia. The pt stated that his speech had improved since initial event, but that he continues to have difficulty with word-finding occasionally, and he has particular trouble with reading and writing. He stated he has difficulty understanding written words, and that it's very hard to read. He states he often has to read letter by letter, especially for longer words. He is also concerned about his handwriting, but does have referral for occupational therapy. His difficulties with reading are exacerbated by remaining visual deficits. Although he was unable to describe a clear visual cut, he stated that he is only able to see and focus on one or two letters at a time and that his vision impairment has caused him to stop driving. He does have a referral to see a neuro-opthamologist, which is scheduled in January. He is seeing his regular opthamologist on Oct 29. In terms of speech difficulties, he reported he has the most difficulty with word-finding of low -frequency/high-specificity words. When he is unable to think of a word, he states that he gets frustrated. Occasionally, he will use a circumlocution/description strategy to describe a word he can't remember. The pt also stated that he was originally planning to retire before his recent string of medical events took place; however, since his CVA, his doctors encouraged him to continue working in a familiar environment to promote cognitive-linguistic rehabilitation. Therefore the pt decided to continue work for at least a few months. Self-awareness of Cognitive- Predictive awareness (abl Communication Deficits Short Term Goals 1. Pt will complete impairment-based approaches including semantic and phonological approaches ( i.e. SFA, CROWD CONTROLLER) with 80% accuracy independently in order to restore the semantic and phonological network. 2. Pt will demonstrate understanding of compensatory strategies for word-finding (i.e. circumlocution, first letter, category, etc) in order to decrease instances of communicative breakdown and reduce frustration with word- finding difficulties. 3. Pt will complete reading tasks by reading short paragraphs with 80% accuracy (80% of words read accurately) at a rate of at least 150 words per minute. Teacher Asst Goals Pt will be able to accurately and efficiently communicate complex thoughts and ideas in order to decrease frustration and return to PLOF. Pt will understand and recall compensatory strategies for expressive language and reading/ visual attention in order to promote independence with strategies outside of language therapy. Comment: Electronically Signed by: JOHNSON Anne 10/21/23 1984 If you are in agreement with this Plan of Care, please return a signed and dated copy. I have reviewed this Plan of Care and certify that the skilled therapy services above are required to meet the patient?s needs. Physician Signature Date Printed Name and Credentials Clinical Instructor Signature Printed Name and Credentials
--- NOTE | 2023-10-21 17:47 | ST-OP ANOTE ---
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 Maricruz Landon) this date requesting signature if in agreement.
--- NOTE | 2023-10-22 11:48 | ST.OPTN ---
Visit Care Team Role Provider Type Francesca Montoya DO Family Provider Non-Staff Primary Care Provider Address: [address] [place] [address], [place], [address] Maricruz Landon MD Attending Provider Non-Staff Referring Provider Address: [address] [place] [address], [address] AMBULATORY CARE COORDINATOR Treatment Note AMBULATORY CARE COORDINATOR Treatment Note Start: 10/22/23 11:36 Freq: Status: Active Protocol: Document 10/22/23 11:36 CG (Rec: 10/22/23 11:48 CG [id number]) Speech Pathology Treatment Note Session Time Visit Start Time 10:30 Visit Stop Time 11:15 Total Visit Minutes 45 Visit Information Visit Number 2 Plan of Care Dates 10/17/23-01/17/24 Setting Treatment Setting Outpatient Care Next Note Type Next Note Type Treatment Note General Information Patient History Jayce North is a 67-year- old male presenting today for a cognitive-linguistic evaluation due to ongoing concerns about word-finding 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 His recent medical events began in August (08/05/23), in which he presented to the ED at this hospital with vertigo and shortness of breath. An MRI at the time discovered an old L sided infarct, but no acute intracranial anomalies. Shortly after MRI, pt's HR dropped to the 30's and EKG showed complete heart block. He was transferred to another hospital for emergency pacemaker placement. After this, records of medical events are unclear; however, pt states that he had multiple TIA's before being admitted to [facility] with a CVA on Sep 27. 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 The pt denies having had difficulty swallowing, and continues to deny dysphagia. The pt stated that his speech had improved since initial event, but that he continues to have difficulty with word- finding occasionally, and he has particular trouble with reading and writing. He stated he has difficulty understanding written words, and that it's very hard to read. He states he often has to read letter by letter, especially for longer words. He is also concerned about his handwriting, but does have referral for occupational therapy. His difficulties with reading are exacerbated by remaining visual deficits. Although he was unable to describe a clear visual cut, he stated that he is only able to see and focus on one or two letters at a time and that his vision impairment has caused him to stop driving. He does have a referral to see a neuro-opthamologist, which is scheduled in January. He is seeing his regular opthamologist on Oct 29. In terms of speech difficulties, he reported he has the most difficulty with word-finding of low-frequency/ high-specificity words. When he is unable to think of a word, he states that he gets frustrated. Occasionally, he will use a circumlocution/ description strategy to describe a word he can't remember. The pt also stated that he was originally planning to retire before his recent string of medical events took place; however, since his CVA, his doctors encouraged him to continue working in a familiar environment to promote cognitive-linguistic rehabilitation. Therefore the pt decided to continue work for at least a few months. Subjective Identification Type Name Observations/Patient Presentation The pt arrived early to his appointment accompanied by his , Janiya. He was alert, oriented, pleasant, and agreeable. He stated there had been no significant changes in his word-finding since being evaluated last week. Chief Complaint(s) Language Objective Short Term Goals 1. Pt will complete impairment -based approaches including semantic and phonological approaches (i.e. SFA, CONDUIT WORKER) with 80% accuracy independently in order to restore the semantic and phonological network. 2. Pt will demonstrate understanding of compensatory strategies for word-finding (i .e. circumlocution, first letter, category, etc) in order to decrease instances of communicative breakdown and reduce frustration with word- finding difficulties. 3. Pt will complete reading tasks by reading short paragraphs with 80% accuracy ( 80% of words read accurately) at a rate of at least 150 words per minute. Usp Goals Pt will be able to accurately and efficiently communicate complex thoughts and ideas in order to decrease frustration and return to PLOF. Pt will understand and recall compensatory strategies for expressive language and reading/visual attention in order to promote independence with strategies outside of language therapy. Treatment Activities Introduced compensatory strategies for word-finding ( including Delay, Describe, Association, Synonyms, First Letter, Gesture, Draw, Look it Up, Narrow it Down, Come Back Later) and provided literature/handout describing each of these strategies. Provided pt education in visual attention/scanning as well as education in compensatory strategies ( including visual anchor and self-talk for visual scanning) . Completed visual scanning activities with the pt (letter cancellation tasks as well as menu scan task) and provided visual scanning homework. Provided education in at-home apps (i.e. [employer] Therapy Apps ) for at-home reading and writing practice. Assessment Patient Response to Treatment Good Rehab Potential Good Impairments Identified Expressive language,Other Impairment comment reading, writing Progress Towards Goals Good Progress Assessment of Improvement The pt and his were highly receptive to word- finding strategies introduced this session. They were receptive to AMBULATORY CARE COORDINATOR suggestion to practice description strategy as if it is a game in order to increase carryover and home and continue strengthening linguistic network. Pt was able to complete visual scanning tasks with approximately 90% accuracy independently, only missing one letter through three cancellation tasks and only requiring minimal verbal cue to scan from top to bottom and left to right during menu task. Plan Length of Session 45 Minutes Therapeutic Contents Client Education,Cognitive- Linguistic Training,Expressive Language Training,Other Additional Areas of Treatment Visual Attention Provided Patient/Caregiver Instruction Home Exercise Program, Questions/Concerns Therapy Recommendations Continue with Current Program
--- NOTE | 2023-10-31 14:33 | ST.OPTN ---
Visit Care Team Role Provider Type Francesca Montoya DO Family Provider Non-Staff Primary Care Provider Address: [address] [place] [address], [place], [address] Maricruz Landon MD Attending Provider Non-Staff Referring Provider Address: [address] [place] [address], [address] TAILERCPA Treatment Note TAILERCPA Treatment Note Start: 10/22/23 11:36 Freq: Status: Active Protocol: Document 10/31/23 13:33 CG (Rec: 10/31/23 13:38 CG [id number]) Speech Pathology Treatment Note Session Time Visit Start Time 11:35 Visit Stop Time 12:25 Total Visit Minutes 50 Visit Information Visit Number 2 Plan of Care Dates 10/17/23-01/17/24 Setting Treatment Setting Outpatient Care Next Note Type Next Note Type Treatment Note General Information Patient History Jayce North is a 67-year- old male presenting today for a cognitive-linguistic evaluation due to ongoing concerns about word-finding 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 His recent medical events began in August (08/05/23), in which he presented to the ED at this hospital with vertigo and shortness of breath. An MRI at the time discovered an old L sided infarct, but no acute intracranial anomalies. Shortly after MRI, pt's HR dropped to the 30's and EKG showed complete heart block. He was transferred to another hospital for emergency pacemaker placement. After this, records of medical events are unclear; however, pt states that he had multiple TIA's before being admitted to [facility] with a CVA on Sep 27. 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 The pt denies having had difficulty swallowing, and continues to deny dysphagia. The pt stated that his speech had improved since initial event, but that he continues to have difficulty with word- finding occasionally, and he has particular trouble with reading and writing. He stated he has difficulty understanding written words, and that it's very hard to read. He states he often has to read letter by letter, especially for longer words. He is also concerned about his handwriting, but does have referral for occupational therapy. His difficulties with reading are exacerbated by remaining visual deficits. Although he was unable to describe a clear visual cut, he stated that he is only able to see and focus on one or two letters at a time and that his vision impairment has caused him to stop driving. He does have a referral to see a neuro-opthamologist, which is scheduled in January. He is seeing his regular opthamologist on Oct 29. In terms of speech difficulties, he reported he has the most difficulty with word-finding of low-frequency/ high-specificity words. When he is unable to think of a word, he states that he gets frustrated. Occasionally, he will use a circumlocution/ description strategy to describe a word he can't remember. The pt also stated that he was originally planning to retire before his recent string of medical events took place; however, since his CVA, his doctors encouraged him to continue working in a familiar environment to promote cognitive-linguistic rehabilitation. Therefore the pt decided to continue work for at least a few months. Subjective Identification Type Name Observations/Patient Presentation The pt arrived early to his appointment independently. He was alert, oriented, pleasant, and agreeable. Chief Complaint(s) Language Objective Short Term Goals 1. Pt will complete impairment -based approaches including semantic and phonological approaches (i.e. SFA, OBSTETRICS GYN) with 80% accuracy independently in order to restore the semantic and phonological network. 2. Pt will demonstrate understanding of compensatory strategies for word-finding (i .e. circumlocution, first letter, category, etc) in order to decrease instances of communicative breakdown and reduce frustration with word- finding difficulties. 3. Pt will complete reading tasks by reading short paragraphs with 80% accuracy ( 80% of words read accurately) at a rate of at least 150 words per minute. Elementary School Director Goals Pt will be able to accurately and efficiently communicate complex thoughts and ideas in order to decrease frustration and return to PLOF. Pt will understand and recall compensatory strategies for expressive language and reading/visual attention in order to promote independence with strategies outside of language therapy. Treatment Activities Reviewed progress with vision and reading. Discussed use of external aids to increase reading comprehension including use of portable magnifying glass for paperwork that cannot be printed in enlarged font. Discussed at- home activities to continue practicing visual scanning and reading, including word searches. Introduced Semantic Feature analysis and complete SFA tasks with everyday items (kitchen utensils, furniture). Completed describing activity in which pt was asked to describe an object to TAILERCPA without naming the object in order to increase communicative effectiveness with circumlocution/ description strategy. Assessment Patient Response to Treatment Good Rehab Potential Good Impairments Identified Expressive language,Other Impairment comment reading, writing Progress Towards Goals Good Progress Assessment of Improvement Pt was agreeable to use of external aids to improve visual processing and is planning to seek out a magnifying glass to increase font size of printed materials . He was able to complete SFA activities with approximately 70% accuracy independently, increasing to 80% accuracy given minimal verbal cues from TAILERCPA. During description exercise, pt was able to effectively use description/ circumlocution to communicate a target object with 67% accuracy independently, increasing to 100% given minimal verbal cues. He stated he will plan to buy a word search book to continue practicing visual scanning and reading during leisure time. Reviewed with Patient Progress Being Made,Home Exercise Program Patient/Caregiver Understanding Good Plan Amount of Therapy Recommended 2-3 Months Length of Session 45 Minutes Therapeutic Contents Client Education,Cognitive- Linguistic Training,Expressive Language Training,Other Additional Areas of Treatment Visual Attention Provided Patient/Caregiver Instruction Home Exercise Program, Questions/Concerns Therapy Recommendations Continue with Current Program
--- NOTE | 2023-11-07 12:42 | ST.OPDS ---
Visit Care Team Role Provider Type Francesca Montoya DO Family Provider Non-Staff Primary Care Provider Address: [address] [place] [address], [place], [address] Maricruz Landon MD Attending Provider Non-Staff Referring Provider Address: [address] [place] [address], [id number] PERSONAL LINES UNDERWRITER Discharge Summary PERSONAL LINES UNDERWRITER Treatment Note Start: 10/22/23 11:36 Freq: Status: Active Protocol: Document 11/07/23 12:32 CG (Rec: 11/07/23 12:41 CG [id number]) Speech Pathology Treatment Note Session Time Visit Start Time 11:35 Visit Stop Time 12:25 Total Visit Minutes 50 Visit Information Visit Number 3 Plan of Care Dates 10/17/23-01/17/24 Setting Treatment Setting Outpatient Care General Information Patient History Jayce North is a 67-year- old male attending speech- language therapy due to ongoing concerns about word- finding 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 His recent medical events began in August (08/05/23), in which he presented to the ED at this hospital with vertigo and shortness of breath. An MRI at the time discovered an old L sided infarct, but no acute intracranial anomalies. Shortly after MRI, pt's HR dropped to the 30's and EKG showed complete heart block. He was transferred to another hospital for emergency pacemaker placement. After this, records of medical events are unclear; however, pt states that he had multiple TIA's before being admitted to [facility] with a CVA on Sep 27. 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 The pt denies having had difficulty swallowing, and continues to deny dysphagia. The pt stated that his speech had improved since initial event, but that he continues to have difficulty with word- finding occasionally, and he has particular trouble with reading and writing. He stated he has difficulty understanding written words, and that it's very hard to read. He states he often has to read letter by letter, especially for longer words. He is also concerned about his handwriting, but does have referral for occupational therapy. His difficulties with reading are exacerbated by remaining visual deficits. Although he was unable to describe a clear visual cut, he stated that he is only able to see and focus on one or two letters at a time and that his vision impairment has caused him to stop driving. He does have a referral to see a neuro-opthamologist, which is scheduled in January. He is seeing his regular opthamologist on Oct 29. In terms of speech difficulties, he reported he has the most difficulty with word-finding of low-frequency/ high-specificity words. When he is unable to think of a word, he states that he gets frustrated. Occasionally, he will use a circumlocution/ description strategy to describe a word he can't remember. The pt also stated that he was originally planning to retire before his recent string of medical events took place; however, since his CVA, his doctors encouraged him to continue working in a familiar environment to promote cognitive-linguistic rehabilitation. Therefore the pt decided to continue work for at least a few months. Subjective Identification Type Name Observations/Patient Presentation The pt arrived early to his appointment independently. He was alert, oriented, pleasant, and agreeable. Chief Complaint(s) Language Objective Short Term Goals 1. Pt will complete impairment -based approaches including semantic and phonological approaches (i.e. SFA, COMPOSITION TILE LAYER) with 80% accuracy independently in order to restore the semantic and phonological network. 2. Pt will demonstrate understanding of compensatory strategies for word-finding (i .e. circumlocution, first letter, category, etc) in order to decrease instances of communicative breakdown and reduce frustration with word- finding difficulties. 3. Pt will complete reading tasks by reading short paragraphs with 80% accuracy ( 80% of words read accurately) at a rate of at least 150 words per minute. (DISCONTINUE ) Penitentiary Goals Pt will be able to accurately and efficiently communicate complex thoughts and ideas in order to decrease frustration and return to PLOF. Pt will understand and recall compensatory strategies for expressive language and reading/visual attention in order to promote independence with strategies outside of language therapy. Treatment Activities Reviewed progress with vision and reading, including discussing current external aids in place for reading. Reviewed progress with description strategy for word- finding difficulties. Completed non-word reading activity in order to assess phonological network. Completed describing activity in which pt was asked to describe an object to PERSONAL LINES UNDERWRITER without naming the object in order to increase communicative effectiveness with circumlocution/ description strategy. Discussed d/c plan due to pt progress with goals. Assessment Patient Response to Treatment Good Rehab Potential Good Impairments Identified Expressive language,Other Impairment comment reading, writing Progress Towards Goals Good Progress Assessment of Improvement Pt states he is using magnifying glass at home, which is helping with reading. He stated that he will be a candidate for cataract surgery starting in late December. During nonword reading exercise, the pt was able to sound out and read nonwords appropriately. Given that this skill is intact and in the absence of other symptoms of phonologically-based impairment (i.e. phonemic paraphasias), the pt's phonemic/phonological subsystem appears intact for reading. Given that his semantic system is also intact based on previous assessment, this leaves visual impairment as the only likely remaining cause of his reading difficulties. Suspect that reading will improve after cataract surgery. During description exercise, pt was able to effectively use description/circumlocution to communicate a target object with 83% accuracy independently, increasing to 100% given minimal verbal cues . He reported using this description strategy at home to resolve instances of word- finding difficulty/ communicative breakdown. Given pt's success with compensatory strategies and high overall level of function , d/c from language therapy today based on progress. Reviewed with Patient Progress Being Made,Home Exercise Program Patient/Caregiver Understanding Good Plan Length of Session 45 Minutes Therapeutic Contents Client Education,Cognitive- Linguistic Training,Expressive Language Training Additional Areas of Treatment Provided Patient/Caregiver Instruction Home Exercise Program, Questions/Concerns Therapy Recommendations Discharge
== END 2023-11-11 13:51 | disposition home or self-care (01) ==
LOC: SP 11:30
PROVIDERS: Family Provider Family Medicine; PCP Family Medicine; Referring Provider Physical Medicine & Rehabilitation Hospice and Palliative Medicine; Visit Provider Physical Medicine & Rehabilitation Hospice and Palliative Medicine
DX: I63.412 Cerebral infarction due to embolism of left middle cerebral artery (principal)
CPT/HCPCS: 92507; 96105

== ENCOUNTER 2024-01-29 09:00 | Outpatient (RCR) | payer MEDICARE, OTHER, SELFPAY ==
--- NOTE | 2023-11-21 18:06 | PT.OIE ---
Current Diagnoses Unspecified retinal vascular occlusion (11/21/23) Cerebral infarction due to embolism of left middle cerebral artery (11/21/23) Lumbago with sciatica, right side (11/21/23) Difficulty in walking, not elsewhere classified (11/21/23) Strain of muscle, fascia and tendon of the posterior muscle group at thigh level, right thigh, sequela (11/21/23) Visit Care Team Role Provider Type Francesca Montoya DO Attending Provider Non-Staff Family Provider Primary Care Provider Referring Provider Specialty: Medical Address: [address] [place] [address], [facility] Email: Physical Therapy Initial Evaluation PT-OP-A Visit Information Start: 11/20/23 18:32 Freq: Status: Active Protocol: Document 11/21/23 08:40 [facility] (Rec: 11/21/23 09:47 [facility] [id number]) Out-Patient Physical Therapy Visit Information Visit Information Visit Type Initial Evaluation Visit Note 12/11 Visit Start Time 09:00 Visit Stop Time 09:45 Total Visit Minutes 45 Visit Number 1 Number of PAPER TESTER Visits 0 PT-OP-B Current Condition Start: 11/20/23 18:32 Freq: Status: Active Protocol: Document 11/21/23 08:40 [facility] (Rec: 11/21/23 09:47 [facility] [id number]) Current Condition History of Current Condition Current Complaints CVA 2 months ago; History of Current Condition Pt reprots artierial blood clot removed in L neck w/ resulting stroke during removal Sep 27, 2023. He had a pacemaker put in on Aug 06. Vascular surgeon said there were a lot of showers of strokes. They did a CT in recovery and transfered from [facility] to [facility] acute rehab. He was there for the weekend and was released morning. He has prior vision issues. 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 Cateract surgery scheduled for [facility]. He saw OT, SYSTEMS SPECIALIST and vision therapy. OT OP dc after eval d/t no needed. He has been having pain that goes up post thigh to back. Even when going to the mailbox, he notices it. Whenever he gets out of the car, it is really annoying and he has stairs. Pain in leg started about January. 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 He has been limping since that started. At one point in the recovery room, he had vision changes and weakness in R arm. He is back to be able to use his R hand. Pt feels like he has had a slight balance issues since the stroke. Even when he goes from sit ot stand , he feels a little lightheaded. He says he can still do things, but does have to compensate d/t pacemaker. Pt reports L neck is still numb. Used to be a walker but hasn't as much since retired since 2000. He would occasionally go for a walk still w/his . Has history of L MCL sprain in 2019 . He backed up and hit a small wall of concrete blocks behind him and started to fall and his L leg got twisted. He did PT for 3 months, and its been doing well. He is noticing he is more winded going up the flight of stairs at home. Treatment Goals Patient/Caregiver Goals walk normally; be able to get up/down stairs w/o pain, be able to go for walks PT-OP-C Subjective Start: 11/20/23 18:32 Freq: Status: Active Protocol: Document 11/21/23 08:40 [facility] (Rec: 11/21/23 09:47 [facility] [id number]) OP-PT Pain Assessment Location RLE Pain Location Details post thigh to buttocks to R SI & lower lumbar region Pain Aggravating Factors Activity,Standing,Walking, Stair Climbing PT-OP-D Balance Start: 11/20/23 18:32 Freq: Status: Active Protocol: Document 11/21/23 08:40 [facility] (Rec: 11/21/23 09:47 [facility] [id number]) Balance Tests Single Limb Standing Single Limb- Right 16 sec -pain hip Single Limb- Left 15 sec PT-OP-E Functional Tests Start: 11/20/23 18:32 Freq: Status: Active Protocol: Document 11/21/23 08:40 [facility] (Rec: 11/21/23 09:47 [facility] [id number]) Functional Tests 30 Second Sit to Stand Test Score 12 Comments pt winded Five Times Sit to Stand Test Score 13 sec Functional Gait Assessment Score 22/30 PT-OP-F Manual Assessment Start: 11/20/23 18:32 Freq: Status: Active Protocol: Document 11/21/23 08:40 [facility] (Rec: 11/21/23 09:47 [facility] [id number]) Manual Assessments Soft Tissue Assessment Soft Tissue Mobility Assessment R ES & QL tight and tender Joint Mobility Assessment Joint Mobility Assessment equal greater trochanters, R iliac crest higher PT-OP-G Mobility & Gait Start: 11/20/23 18:32 Freq: Status: Active Protocol: Document 11/21/23 08:40 [facility] (Rec: 11/21/23 09:47 [facility] [id number]) OP Gait Assessment Comments Gait Comments dec stance time RLE w/lat lean w/WB PT-OP-J Posture/Palpation/Skin Start: 11/20/23 18:32 Freq: Status: Active Protocol: Document 11/21/23 08:40 [facility] (Rec: 11/21/23 09:47 [facility] [id number]) Posture Evaluation [place] Postural Classification System [facility] Postural Classifications Posterior/Posterior Vertebral Compression Test 0 Lumbar Protective Mechanism Left AP 1 Lumbar Protective Mechanism Right AP 0 Lumbar Protective Mechanism Left PA 1 Lumbar Protective Mechanism Right PA 0 Comments 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, inc kyphosis, lat trunk lean L, fwd head PT-OP-M Strength Start: 11/20/23 18:32 Freq: Status: Active Protocol: Document 11/21/23 08:40 [facility] (Rec: 11/21/23 09:47 [facility] [id number]) Hip Strength Hip Manual Muscle Testing Right Flexion (L2) 4 Good Extension (S1) 4- Good- Abduction 4 Good External Rotation 4 Good Internal Rotation 5 Normal Comments pain ER, abd, ext Left Flexion (L2) 4+ Good+ Extension (S1) 4- Good- Abduction 4 Good External Rotation 4 Good Internal Rotation 5 Normal Knee Strength Knee Manual Muscle Testing Right Flexion (S2) 4+ Good+ Extension (L3) 5 Normal Comments pain HS w/flex Left Flexion (S2) 4+ Good+ Extension (L3) 5 Normal Ankle/Foot Strength Ankle and Foot Manual Muscle Testing Right Dorsiflexion (L4) 5 Normal Plantarflexion (S1) 5 Normal Comments pain w/heel raises Left Dorsiflexion (L4) 5 Normal Plantarflexion (S1) 5 Normal Comments 20 heel raises B PT-OP-Q Treatments Start: 11/20/23 18:32 Freq: Status: Active Protocol: Document 11/21/23 08:40 [facility] (Rec: 11/21/23 09:47 [facility] [id number]) Therapeutic Exercises Supine Exercises stretch Supine Exercise Name across chest Side bilateral Reps/Minutes 30 sec ea sciatic n glide Supine Exercise Name supine active knee ext Side bilateral Reps/Minutes 10 Standing Exercises sit to stands Side bilateral Reps/Minutes 12 PT-OP-T Assessment and Plan Start: 11/20/23 18:32 Freq: Status: Active Protocol: Document 11/21/23 08:40 [facility] (Rec: 11/21/23 09:47 [facility] [id number]) Physical Therapy Assessment Rehab Potential Rehabilitation Potential Good Evaluation Complexity Number of Personal Factors/Comorbidities 3 or More Number of Body Systems Impaired 4 or More Clinical Presentation at Evaluation Evolving Impairments Impairments Activity Tolerance,Balance, Functional Activities, Functional Mobility,ROM,Soft Tissue Mobility,Strength Goals balance Impairment FGA 22; SLS 15-16 sec B pain on R Short Term Goal (STG) Pt will improve FGA to at least 25/30 to show dec fall risk STG Duration 01/05/24 Swim Instructor Goal (LTG) Pt will be abl eto do SLS for 20 sec B w/o pain to show improved balance LTG Duration 02/12 strength Short Term Goal (STG) Pt will be indep w/HEP STG Duration 01/05/24 Swim Instructor Goal (LTG) Pt will score at least 3/5 on LPM and 5/5 BLE MMT in order to allow pt to do typical daily activities w/o inc pain LTG Duration 02/13/24 walking Short Term Goal (STG) Pt will report typical daily walking does not inc pain into leg /back. STG Duration 01/05 Fpc Goal (LTG) Pt will be able to resume walks for over a mile w/o inc pain. LTG Duration 02/12 Assessment Summary Assessment Pt presents 2 months s/p CVA w /mild balance deficits but main concern is R HS pain that radiates to SI and lower lumbar with a positive R SLR indicating neural tesion. He had mildly elevated R innominate w/inc guarding on R side which is likely contributing to this. He demonstrates inc thoracic kyphosis that likely contributes to pain as he griselda pelvis fwd to try to get into more upright positioning. He would benefit from skilled PT to adress postural deficits, balance deficits, dec strength and limited mobility in order to allow him to return to typical activities w/o pain. Physical Therapy Plan Frequency and Duration Frequency of Treatment 2x/Week Duration of treatment (weeks) 12 Plan of Care Start Date 11/21/23 Plan of Care End Date 02/13/24 Therapeutic Interventions Therapeutic Interventions Balance Training,Gait Training ,Home Exercise Program,Joint Mobilizations,Manual Therapy, Neuromuscular Re-education, Orthotic/Prosthetic Management ,Patient/Caregiver Education, Self-Care/Home Management,Soft Tissue Mobilization,Taping, Therapeutic Activities, Therapeutic Exercises, Vestibular Rehabilitation Modalities Cold Pack/Ice Massage,Electric Stimulation,Hot Packs Next Visit Focus/Plan Next Note Type Treatment Note Next Visit Plan core strength, manual to pelvis and R hip and HS, review exercises, ROM test of spine
--- NOTE | 2023-11-21 18:06 | PT.OPPOC ---
Physical, Occupational & Speech Therapy At [facility] Current Diagnoses Unspecified retinal vascular occlusion (11/21/23) Cerebral infarction due to embolism of left middle cerebral artery (11/21/23) Lumbago with sciatica, right side (11/21/23) Difficulty in walking, not elsewhere classified (11/21/23) Strain of muscle, fascia and tendon of the posterior muscle group at thigh level, right thigh, sequela (11/21/23) Visit Care Team Role Provider Type Francesca Motnoya DO Attending Provider Non-Staff Family Provider Primary Care Provider Referring Provider Specialty: Medical Address: [address] [place] [address], [facility] Email: Plan Of Care PT-OP-T Assessment and Plan Start: 11/20/23 18:32 Freq: Status: Active Protocol: Document 11/21/23 08:40 [facility] (Rec: 11/21/23 09:47 [facility] [id number]) Physical Therapy Assessment Rehab Potential Rehabilitation Potential Good Evaluation Complexity Number of Personal Factors/Comorbidities 3 or More Number of Body Systems Impaired 4 or More Clinical Presentation at Evaluation Evolving Impairments Impairments Activity Tolerance,Balance, Functional Activities, Functional Mobility,ROM,Soft Tissue Mobility,Strength Goals balance Impairment FGA 22; SLS 15-16 sec B pain on R Short Term Goal (STG) Pt will improve FGA to at least 25/30 to show dec fall risk STG Duration 01/05/24 Intermediate Goal (LTG) Pt will be abl eto do SLS for 20 sec B w/o pain to show improved balance LTG Duration 02/12 strength Short Term Goal (STG) Pt will be indep w/HEP STG Duration 01/05/24 Ballet Teacher Goal (LTG) Pt will score at least 3/5 on LPM and 5/5 BLE MMT in order to allow pt to do typical daily activities w/o inc pain LTG Duration 02/13/24 walking Short Term Goal (STG) Pt will report typical daily walking does not inc pain into leg /back. STG Duration 01/05 Ballet Teacher Goal (LTG) Pt will be able to resume walks for over a mile w/o inc pain. LTG Duration 02/12 Assessment Summary Assessment Pt presents 2 months s/p CVA w /mild balance deficits but main concern is R HS pain that radiates to SI and lower lumbar with a positive R SLR indicating neural tesion. He had mildly elevated R innominate w/inc guarding on R side which is likely contributing to this. He demonstrates inc thoracic kyphosis that likely contributes to pain as he griselda pelvis fwd to try to get into more upright positioning. He would benefit from skilled PT to adress postural deficits, balance deficits, dec strength and limited mobility in order to allow him to return to typical activities w/o pain. Physical Therapy Plan Frequency and Duration Frequency of Treatment 2x/Week Duration of treatment (weeks) 12 Plan of Care Start Date 11/21/23 Plan of Care End Date 02/13/24 Therapeutic Interventions Therapeutic Interventions Balance Training,Gait Training ,Home Exercise Program,Joint Mobilizations,Manual Therapy, Neuromuscular Re-education, Orthotic/Prosthetic Management ,Patient/Caregiver Education, Self-Care/Home Management,Soft Tissue Mobilization,Taping, Therapeutic Activities, Therapeutic Exercises, Vestibular Rehabilitation Modalities Cold Pack/Ice Massage,Electric Stimulation,Hot Packs Next Visit Focus/Plan Next Note Type Treatment Note Next Visit Plan core strength, manual to pelvis and R hip and HS, review exercises, ROM test of spine Plan of Care Dates Plan of Care Start Date 11/21/23 Plan of Care End Date 02/13/24 Electronically Signed by: Vanda North, PT 11/21/23 9048 If you are in agreement with this Plan of Care, please return a signed and dated copy. I have reviewed this Plan of Care and certify that the skilled therapy services above are required to meet the patient?s needs. Physician Signature Date Printed Name and Credentials Clinical Instructor Signature Printed Name and Credentials
--- NOTE | 2023-11-26 10:42 | PT.OTN ---
Current Diagnoses Unspecified retinal vascular occlusion (11/26/23) Cerebral infarction due to embolism of left middle cerebral artery (11/26/23) Lumbago with sciatica, right side (11/26/23) Difficulty in walking, not elsewhere classified (11/26/23) Strain of muscle, fascia and tendon of the posterior muscle group at thigh level, right thigh, sequela (11/26/23) Physical Therapy Treatment Note PT-OP-A Visit Information Start: 11/20/23 18:32 Freq: Status: Active Protocol: Document 11/26/23 09:47 [facility] (Rec: 11/26/23 10:07 [facility] [id number]) Out-Patient Physical Therapy Visit Information Visit Information Visit Type Treatment Note Visit Note 01/11 Visit Start Time 09:52 Visit Stop Time 10:32 Total Visit Minutes 40 Visit Number 2 Number of REGULATORY COORDINATOR Visits 0 PT-OP-B Current Condition Start: 11/20/23 18:32 Freq: Status: Active Protocol: Document 11/21/23 08:40 [facility] (Rec: 11/21/23 09:47 [facility] [id number]) Current Condition History of Current Condition Current Complaints CVA 2 months ago; History of Current Condition Pt reprots artierial blood clot removed in L neck w/ resulting stroke during removal Sep 27, 2023. He had a pacemaker put in on Aug 06. Vascular surgeon said there were a lot of showers of strokes. They did a CT in recovery and transfered from [facility] to [facility] acute rehab. He was there for the weekend and was released morning. He has prior vision issues. 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 Cateract surgery scheduled for [facility]. He saw OT, DATA SME and vision therapy. OT OP dc after eval d/t no needed. He has been having pain that goes up post thigh to back. Even when going to the mailbox, he notices it. Whenever he gets out of the car, it is really annoying and he has stairs. Pain in leg started about January. 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 He has been limping since that started. At one point in the recovery room, he had vision changes and weakness in R arm. He is back to be able to use his R hand. Pt feels like he has had a slight balance issues since the stroke. Even when he goes from sit ot stand , he feels a little lightheaded. He says he can still do things, but does have to compensate d/t pacemaker. Pt reports L neck is still numb. Used to be a walker but hasn't as much since retired since 2000. He would occasionally go for a walk still w/his . Has history of L MCL sprain in 2019 . He backed up and hit a small wall of concrete blocks behind him and started to fall and his L leg got twisted. He did PT for 3 months, and its been doing well. He is noticing he is more winded going up the flight of stairs at home. Treatment Goals Patient/Caregiver Goals walk normally; be able to get up/down stairs w/o pain, be able to go for walks PT-OP-C Subjective Start: 11/20/23 18:32 Freq: Status: Active Protocol: Document 11/26/23 09:47 [facility] (Rec: 11/26/23 10:07 [facility] [id number]) OP-PT Subjective Patient Comments Patient Comments Pt reports he was playing w/ the dog and kicking its toy and faked it out by pretending to kick one way then kick the other and that inc his leg and LB pain which lasted to the next day. (this was 2 days ago) PT-OP-D Balance Start: 11/20/23 18:32 Freq: Status: Active Protocol: Document 11/21/23 08:40 [facility] (Rec: 11/21/23 09:47 [facility] [id number]) Balance Tests Single Limb Standing Single Limb- Right 16 sec -pain hip Single Limb- Left 15 sec PT-OP-E Functional Tests Start: 11/20/23 18:32 Freq: Status: Active Protocol: Document 11/21/23 08:40 [facility] (Rec: 11/21/23 09:47 [facility] [id number]) Functional Tests 30 Second Sit to Stand Test Score 12 Comments pt winded Five Times Sit to Stand Test Score 13 sec Functional Gait Assessment Score 22/30 PT-OP-F Manual Assessment Start: 11/20/23 18:32 Freq: Status: Active Protocol: Document 11/21/23 08:40 [facility] (Rec: 11/21/23 09:47 [facility] [id number]) Manual Assessments Soft Tissue Assessment Soft Tissue Mobility Assessment R ES & QL tight and tender Joint Mobility Assessment Joint Mobility Assessment equal greater trochanters, R iliac crest higher PT-OP-G Mobility & Gait Start: 11/20/23 18:32 Freq: Status: Active Protocol: Document 11/21/23 08:40 [facility] (Rec: 11/21/23 09:47 [facility] [id number]) OP Gait Assessment Comments Gait Comments dec stance time RLE w/lat lean w/WB PT-OP-J Posture/Palpation/Skin Start: 11/20/23 18:32 Freq: Status: Active Protocol: Document 11/21/23 08:40 [facility] (Rec: 11/21/23 09:47 [facility] [id number]) Posture Evaluation Ana Postural Classification System Ana Postural Classifications Posterior/Posterior Vertebral Compression Test 0 Lumbar Protective Mechanism Left AP 1 Lumbar Protective Mechanism Right AP 0 Lumbar Protective Mechanism Left PA 1 Lumbar Protective Mechanism Right PA 0 Comments Posture Comments slight boot turner BLEs, inc kyphosis, lat trunk lean L, fwd head PT-OP-K Range of Motion Start: 11/26/23 10:07 Freq: Status: Active Protocol: Document 11/26/23 09:47 [facility] (Rec: 11/26/23 10:10 [facility] [id number]) Lumbar Spine Range of Motion Lumbar Spine Active Percentage Flexion 50 Extension 50 Rotation Left 40 Rotation Right 40 Lateral Flexion Left 40 Lateral Flexion Right 50 Comments spine:30%, HS 70% of range-to mid [place]; pain in R spine w/SB B; pain w/L rot PT-OP-M Strength Start: 11/20/23 18:32 Freq: Status: Active Protocol: Document 11/21/23 08:40 [facility] (Rec: 11/21/23 09:47 [facility] [id number]) Hip Strength Hip Manual Muscle Testing Right Flexion (L2) 4 Good Extension (S1) 4- Good- Abduction 4 Good External Rotation 4 Good Internal Rotation 5 Normal Comments pain ER, abd, ext Left Flexion (L2) 4+ Good+ Extension (S1) 4- Good- Abduction 4 Good External Rotation 4 Good Internal Rotation 5 Normal Knee Strength Knee Manual Muscle Testing Right Flexion (S2) 4+ Good+ Extension (L3) 5 Normal Comments pain HS w/flex Left Flexion (S2) 4+ Good+ Extension (L3) 5 Normal Ankle/Foot Strength Ankle and Foot Manual Muscle Testing Right Dorsiflexion (L4) 5 Normal Plantarflexion (S1) 5 Normal Comments pain w/heel raises Left Dorsiflexion (L4) 5 Normal Plantarflexion (S1) 5 Normal Comments 20 heel raises B PT-OP-Q Treatments Start: 11/20/23 18:32 Freq: Status: Active Protocol: Document 11/26/23 09:47 [facility] (Rec: 11/26/23 10:07 [facility] [id number]) Therapeutic Exercises Supine Exercises core Supine Exercise Name abdominal sereis: 1. flex 2. diagonal 3. ext 4. flex Side bilateral Reps/Minutes 15 sec ea pelvic tilt Reps/Minutes 15 stretch Supine Exercise Name across chest Side bilateral Reps/Minutes 30 sec ea sciatic n glide Supine Exercise Name supine active knee ext Side bilateral Reps/Minutes 10 Standing Exercises sit to stands Side bilateral Reps/Minutes 12 Other Exercises AROM Other Exercise Name spine Manual Therapy Treatment Soft Tissue Mobilization HS Body Location R Mobilization Type Rolling,Sustained Pressure Intensity/Depth Moderate Body Position Supine Comments w/active HS stretch back Body Location along R SI and sup iliac crest Mobilization Type Rolling Intensity/Depth Moderate Body Position Sidelying hip Body Location R piriformis Mobilization Type Sustained Pressure Intensity/Depth Moderate Body Position Sidelying Comments w/hip IR Joint Mobilizations hip Joint R IR free the ball and inf glide FM Body Position Supine PT-OP-T Assessment and Plan Start: 11/20/23 18:32 Freq: Status: Active Protocol: Document 11/26/23 09:47 [facility] (Rec: 11/26/23 10:07 [facility] [id number]) Physical Therapy Assessment Goals balance Impairment FGA 22; SLS 15-16 sec B pain on R Short Term Goal (STG) Pt will improve FGA to at least 25/30 to show dec fall risk STG Duration 01/05/24 Mcfp Goal (LTG) Pt will be abl eto do SLS for 20 sec B w/o pain to show improved balance LTG Duration 02/12 strength Short Term Goal (STG) Pt will be indep w/HEP STG Duration 01/05/24 Frame Fixer Goal (LTG) Pt will score at least 3/5 on LPM and 5/5 BLE MMT in order to allow pt to do typical daily activities w/o inc pain LTG Duration 02/13/24 walking Short Term Goal (STG) Pt will report typical daily walking does not inc pain into leg /back. STG Duration 2/ Frame Fixer Goal (LTG) Pt will be able to resume walks for over a mile w/o inc pain. LTG Duration 02/12 Assessment Summary Assessment Pt reports relief w/manual treatment and felt like his back was looser. Pt had imrpoved R hip IR and flex after manual treatment. He required cues throughout all exercises today for form except for sit to stands. Physical Therapy Plan Frequency and Duration Frequency of Treatment 2x/Week Duration of treatment (weeks) 12 Plan of Care Start Date 11/21/23 Plan of Care End Date 02/13/24 Next Visit Focus/Plan Next Note Type Treatment Note Next Visit Plan review exercises, manual to pelvis and R hip and HS
--- NOTE | 2023-12-09 09:02 | PT.OTN ---
Current Diagnoses Unspecified retinal vascular occlusion (12/09/23) Cerebral infarction due to embolism of left middle cerebral artery (12/09/23) Lumbago with sciatica, right side (12/09/23) Difficulty in walking, not elsewhere classified (12/09/23) Strain of muscle, fascia and tendon of the posterior muscle group at thigh level, right thigh, sequela (12/09/23) Physical Therapy Treatment Note PT-OP-A Visit Information Start: 11/20/23 18:32 Freq: Status: Active Protocol: Document 12/09/23 08:21 [facility] (Rec: 12/09/23 09:02 [facility] [id number]) Out-Patient Physical Therapy Visit Information Visit Information Visit Type Treatment Note Visit Note 02/08 Visit Start Time 08:21 Visit Stop Time 09:00 Total Visit Minutes 39 Visit Number 3 Number of INSTRUMENT MAINTENANCE SUPERVISOR Visits 0 PT-OP-B Current Condition Start: 11/20/23 18:32 Freq: Status: Active Protocol: Document 11/21/23 08:40 [facility] (Rec: 11/21/23 09:47 [facility] [id number]) Current Condition History of Current Condition Current Complaints CVA 2 months ago; History of Current Condition Pt reprots artierial blood clot removed in L neck w/ resulting stroke during removal Sep 27, 2023. He had a pacemaker put in on Aug 06. Vascular surgeon said there were a lot of showers of strokes. They did a CT in recovery and transfered from [facility] to [facility] acute rehab. He was there for the weekend and was released morning. He has prior vision issues. 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 Cateract surgery scheduled for [facility]. He saw OT, PRODUCTION SANITIZER and vision therapy. OT OP dc after eval d/t no needed. He has been having pain that goes up post thigh to back. Even when going to the mailbox, he notices it. Whenever he gets out of the car, it is really annoying and he has stairs. Pain in leg started about January. 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 He has been limping since that started. At one point in the recovery room, he had vision changes and weakness in R arm. He is back to be able to use his R hand. Pt feels like he has had a slight balance issues since the stroke. Even when he goes from sit ot stand , he feels a little lightheaded. He says he can still do things, but does have to compensate d/t pacemaker. Pt reports L neck is still numb. Used to be a walker but hasn't as much since retired since 2000. He would occasionally go for a walk still w/his . Has history of L MCL sprain in 2019 . He backed up and hit a small wall of concrete blocks behind him and started to fall and his L leg got twisted. He did PT for 3 months, and its been doing well. He is noticing he is more winded going up the flight of stairs at home. Treatment Goals Patient/Caregiver Goals walk normally; be able to get up/down stairs w/o pain, be able to go for walks PT-OP-C Subjective Start: 11/20/23 18:32 Freq: Status: Active Protocol: Document 12/09/23 08:21 [facility] (Rec: 12/09/23 09:02 [facility] [id number]) OP-PT Subjective Patient Comments Patient Comments Pt reports right after xmas, he got covid. Just started feeling better so tried the exercises yesterday. PT-OP-D Balance Start: 11/20/23 18:32 Freq: Status: Active Protocol: Document 11/21/23 08:40 [facility] (Rec: 11/21/23 09:47 [facility] [id number]) Balance Tests Single Limb Standing Single Limb- Right 16 sec -pain hip Single Limb- Left 15 sec PT-OP-E Functional Tests Start: 11/20/23 18:32 Freq: Status: Active Protocol: Document 11/21/23 08:40 [facility] (Rec: 11/21/23 09:47 [facility] [id number]) Functional Tests 30 Second Sit to Stand Test Score 12 Comments pt winded Five Times Sit to Stand Test Score 13 sec Functional Gait Assessment Score 22 PT-OP-F Manual Assessment Start: 11/20/23 18:32 Freq: Status: Active Protocol: Document 11/21/23 08:40 [facility] (Rec: 11/21/23 09:47 [facility] [id number]) Manual Assessments Soft Tissue Assessment Soft Tissue Mobility Assessment R ES & QL tight and tender Joint Mobility Assessment Joint Mobility Assessment equal greater trochanters, R iliac crest higher PT-OP-G Mobility & Gait Start: 11/20/23 18:32 Freq: Status: Active Protocol: Document 11/21/23 08:40 [facility] (Rec: 11/21/23 09:47 [facility] [id number]) OP Gait Assessment Comments Gait Comments dec stance time RLE w/lat lean w/WB PT-OP-J Posture/Palpation/Skin Start: 11/20/23 18:32 Freq: Status: Active Protocol: Document 11/21/23 08:40 [facility] (Rec: 11/21/23 09:47 [facility] [id number]) Posture Evaluation Ana Postural Classification System Ana Postural Classifications Posterior/Posterior Vertebral Compression Test 0 Lumbar Protective Mechanism Left AP 1 Lumbar Protective Mechanism Right AP 0 Lumbar Protective Mechanism Left PA 1 Lumbar Protective Mechanism Right PA 0 Comments Posture Comments 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, inc kyphosis, lat trunk lean L, fwd head PT-OP-K Range of Motion Start: 11/26/23 10:07 Freq: Status: Active Protocol: Document 11/26/23 09:47 [facility] (Rec: 11/26/23 10:10 [facility] [id number]) Lumbar Spine Range of Motion Lumbar Spine Active Percentage Flexion 50 Extension 50 Rotation Left 40 Rotation Right 40 Lateral Flexion Left 40 Lateral Flexion Right 50 Comments spine:30%, HS 70% of range-to mid [place]; pain in R spine w/SB B; pain w/L rot PT-OP-M Strength Start: 11/20/23 18:32 Freq: Status: Active Protocol: Document 11/21/23 08:40 [facility] (Rec: 11/21/23 09:47 [facility] [id number]) Hip Strength Hip Manual Muscle Testing Right Flexion (L2) 4 Good Extension (S1) 4- Good- Abduction 4 Good External Rotation 4 Good Internal Rotation 5 Normal Comments pain ER, abd, ext Left Flexion (L2) 4+ Good+ Extension (S1) 4- Good- Abduction 4 Good External Rotation 4 Good Internal Rotation 5 Normal Knee Strength Knee Manual Muscle Testing Right Flexion (S2) 4+ Good+ Extension (L3) 5 Normal Comments pain HS w/flex Left Flexion (S2) 4+ Good+ Extension (L3) 5 Normal Ankle/Foot Strength Ankle and Foot Manual Muscle Testing Right Dorsiflexion (L4) 5 Normal Plantarflexion (S1) 5 Normal Comments pain w/heel raises Left Dorsiflexion (L4) 5 Normal Plantarflexion (S1) 5 Normal Comments 20 heel raises B PT-OP-Q Treatments Start: 11/20/23 18:32 Freq: Status: Active Protocol: Document 12/09/23 08:21 [facility] (Rec: 12/09/23 09:02 [facility] [id number]) Therapeutic Exercises Supine Exercises core Supine Exercise Name abdominal sereis: 1. flex 2. diagonal 3. ext 4. flex Side bilateral Reps/Minutes 3x15 sec ea pelvic tilt Reps/Minutes 15x5 sec stretch Supine Exercise Name across chest Side bilateral Reps/Minutes 30 sec ea sciatic n glide Supine Exercise Name supine active knee ext Side bilateral Reps/Minutes 10 Standing Exercises sit to stands Side bilateral Equipment Used chair Reps/Minutes 15 Comments slow Manual Therapy Treatment Soft Tissue Mobilization HS Body Location R HS and ITB Mobilization Type Rolling,Sustained Pressure Intensity/Depth Moderate Body Position Supine Comments w/active HS stretch hip Body Location R lat glues Mobilization Type Sustained Pressure Intensity/Depth Moderate Body Position Hooklying Comments w/hip IR Joint Mobilizations hip Comments R IR free the ball and inf glide FM; IR hip on axis Supine FM PT-OP-T Assessment and Plan Start: 11/20/23 18:32 Freq: Status: Active Protocol: Document 12/09/23 08:21 [facility] (Rec: 12/09/23 09:02 [facility] [id number]) Physical Therapy Assessment Goals balance Impairment FGA 22; SLS 15-16 sec B pain on R Short Term Goal (STG) Pt will improve FGA to at least 25/30 to show dec fall risk STG Duration 01/05/24 Shelter Goal (LTG) Pt will be abl eto do SLS for 20 sec B w/o pain to show improved balance LTG Duration 02/12 strength Short Term Goal (STG) Pt will be indep w/HEP STG Duration 01/05/24 Shelter Goal (LTG) Pt will score at least 3/5 on LPM and 5/5 BLE MMT in order to allow pt to do typical daily activities w/o inc pain LTG Duration 02/13/24 walking Short Term Goal (STG) Pt will report typical daily walking does not inc pain into leg /back. STG Duration 01/05 Car Coupler Goal (LTG) Pt will be able to resume walks for over a mile w/o inc pain. LTG Duration 02/12 Assessment Summary Assessment Pt required most cues w/ abdominal series exercises, but otherwise did well with mn cues. Encouraged to do one set of sit to stands for speed and one w/slow control. Physical Therapy Plan Frequency and Duration Frequency of Treatment 2x/Week Duration of treatment (weeks) 12 Plan of Care Start Date 11/21/23 Plan of Care End Date 02/13/24 Next Visit Focus/Plan Next Note Type Treatment Note Next Visit Plan advance core and hip stability , manual to pelvis and R hip/ HS
--- NOTE | 2023-12-12 15:20 | PT.OTN ---
Current Diagnoses Unspecified retinal vascular occlusion (12/12/23) Cerebral infarction due to embolism of left middle cerebral artery (12/12/23) Lumbago with sciatica, right side (12/12/23) Difficulty in walking, not elsewhere classified (12/12/23) Strain of muscle, fascia and tendon of the posterior muscle group at thigh level, right thigh, sequela (12/12/23) Physical Therapy Treatment Note PT-OP-A Visit Information Start: 11/20/23 18:32 Freq: Status: Active Protocol: Document 12/12/23 14:37 [facility] (Rec: 12/12/23 15:19 [facility] [id number]) Out-Patient Physical Therapy Visit Information Visit Information Visit Type Treatment Note Visit Note 03/11 Visit Start Time 13:36 Visit Stop Time 14:30 Total Visit Minutes 39 Visit Number 4 Number of FISH ICER Visits 0 PT-OP-B Current Condition Start: 11/20/23 18:32 Freq: Status: Active Protocol: Document 11/21/23 08:40 [facility] (Rec: 11/21/23 09:47 [facility] [id number]) Current Condition History of Current Condition Current Complaints CVA 2 months ago; History of Current Condition Pt reprots artierial blood clot removed in L neck w/ resulting stroke during removal Sep 27, 2023. He had a pacemaker put in on Aug 06. Vascular surgeon said there were a lot of showers of strokes. They did a CT in recovery and transfered from [facility] to [facility] acute rehab. He was there for the weekend and was released morning. He has prior vision issues. 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 Cateract surgery scheduled for [facility]. 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 OT OP dc after eval d/t no needed. He has been having pain that goes up post thigh to back. Even when going to the mailbox, he notices it. Whenever he gets out of the car, it is really annoying and he has stairs. Pain in leg started about January. 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 He has been limping since that started. At one point in the recovery room, he had vision changes and weakness in R arm. He is back to be able to use his R hand. Pt feels like he has had a slight balance issues since the stroke. Even when he goes from sit ot stand , he feels a little lightheaded. He says he can still do things, but does have to compensate d/t pacemaker. Pt reports L neck is still numb. Used to be a walker but hasn't as much since retired since 2000. He would occasionally go for a walk still w/his . Has history of L MCL sprain in 2019 . He backed up and hit a small wall of concrete blocks behind him and started to fall and his L leg got twisted. He did PT for 3 months, and its been doing well. He is noticing he is more winded going up the flight of stairs at home. Treatment Goals Patient/Caregiver Goals walk normally; be able to get up/down stairs w/o pain, be able to go for walks PT-OP-C Subjective Start: 11/20/23 18:32 Freq: Status: Active Protocol: Document 12/12/23 14:37 [facility] (Rec: 12/12/23 15:19 [facility] [id number]) OP-PT Subjective Patient Comments Patient Comments Pt report soreness in R SI after last session. He had to take tylenol and ibuprofen and did ice. He is sore from going up/down the stairs a lot today. PT-OP-D Balance Start: 11/20/23 18:32 Freq: Status: Active Protocol: Document 11/21/23 08:40 [facility] (Rec: 11/21/23 09:47 [facility] [id number]) Balance Tests Single Limb Standing Single Limb- Right 16 sec -pain hip Single Limb- Left 15 sec PT-OP-E Functional Tests Start: 11/20/23 18:32 Freq: Status: Active Protocol: Document 11/21/23 08:40 [facility] (Rec: 11/21/23 09:47 [facility] [id number]) Functional Tests 30 Second Sit to Stand Test Score 12 Comments pt winded Five Times Sit to Stand Test Score 13 sec Functional Gait Assessment Score 22/30 PT-OP-F Manual Assessment Start: 11/20/23 18:32 Freq: Status: Active Protocol: Document 11/21/23 08:40 [facility] (Rec: 11/21/23 09:47 [facility] [id number]) Manual Assessments Soft Tissue Assessment Soft Tissue Mobility Assessment R ES & QL tight and tender Joint Mobility Assessment Joint Mobility Assessment equal greater trochanters, R iliac crest higher PT-OP-G Mobility & Gait Start: 11/20/23 18:32 Freq: Status: Active Protocol: Document 11/21/23 08:40 [facility] (Rec: 11/21/23 09:47 [facility] [id number]) OP Gait Assessment Comments Gait Comments dec stance time RLE w/lat lean w/WB PT-OP-J Posture/Palpation/Skin Start: 11/20/23 18:32 Freq: Status: Active Protocol: Document 11/21/23 08:40 [facility] (Rec: 11/21/23 09:47 [facility] [id number]) Posture Evaluation [facility] Postural Classification System Ana Postural Classifications Posterior/Posterior Vertebral Compression Test 0 Lumbar Protective Mechanism Left AP 1 Lumbar Protective Mechanism Right AP 0 Lumbar Protective Mechanism Left PA 1 Lumbar Protective Mechanism Right PA 0 Comments Posture 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, inc kyphosis, lat trunk lean L, fwd head PT-OP-K Range of Motion Start: 11/26/23 10:07 Freq: Status: Active Protocol: Document 11/26/23 09:47 [facility] (Rec: 11/26/23 10:10 [facility] [id number]) Lumbar Spine Range of Motion Lumbar Spine Active Percentage Flexion 50 Extension 50 Rotation Left 40 Rotation Right 40 Lateral Flexion Left 40 Lateral Flexion Right 50 Comments spine:30%, HS 70% of range-to mid [place]; pain in R spine w/SB B; pain w/L rot PT-OP-M Strength Start: 11/20/23 18:32 Freq: Status: Active Protocol: Document 11/21/23 08:40 [facility] (Rec: 11/21/23 09:47 [facility] [id number]) Hip Strength Hip Manual Muscle Testing Right Flexion (L2) 4 Good Extension (S1) 4- Good- Abduction 4 Good External Rotation 4 Good Internal Rotation 5 Normal Comments pain ER, abd, ext Left Flexion (L2) 4+ Good+ Extension (S1) 4- Good- Abduction 4 Good External Rotation 4 Good Internal Rotation 5 Normal Knee Strength Knee Manual Muscle Testing Right Flexion (S2) 4+ Good+ Extension (L3) 5 Normal Comments pain HS w/flex Left Flexion (S2) 4+ Good+ Extension (L3) 5 Normal Ankle/Foot Strength Ankle and Foot Manual Muscle Testing Right Dorsiflexion (L4) 5 Normal Plantarflexion (S1) 5 Normal Comments pain w/heel raises Left Dorsiflexion (L4) 5 Normal Plantarflexion (S1) 5 Normal Comments 20 heel raises B PT-OP-Q Treatments Start: 11/20/23 18:32 Freq: Status: Active Protocol: Document 12/12/23 14:37 [facility] (Rec: 12/12/23 15:19 [facility] [id number]) Therapeutic Exercises Supine Exercises core Supine Exercise Name abdominal sereis: 1. flex 2. diagonal 3. ext 4. flex Side bilateral Reps/Minutes 30 sec pelvic tilt Reps/Minutes 5 Comments stopped d/t pain stretch Supine Exercise Name across chest Side bilateral Reps/Minutes 30 sec ea sciatic n glide Supine Exercise Name supine active knee ext Side bilateral Reps/Minutes 10 Sitting Exercises pelvic tilts Reps/Minutes 10 Standing Exercises sit to stands Standing Exercise Name 1. fast 2. slow Side bilateral Equipment Used chair Reps/Minutes 15 ea Manual Therapy Treatment Soft Tissue Mobilization back Body Location along R SI and sup iliac crest & QL &ES Mobilization Type Rolling Intensity/Depth Moderate Body Position Sidelying Joint Mobilizations Innominate Joint R UPA FM sacrum Joint R UPA FM seated lumbar Comments L4 and 5 L down and back FM Self-Care/Home Management Treatment Education Other Education 8 min: edu on centralization of pain and that is good that pain in more in back and not down leg as much. edu to cont to ice back PT-OP-T Assessment and Plan Start: 11/20/23 18:32 Freq: Status: Active Protocol: Document 12/12/23 14:37 [facility] (Rec: 12/12/23 15:19 [facility] [id number]) Physical Therapy Assessment Goals balance Impairment FGA 22; SLS 15-16 sec B pain on R Short Term Goal (STG) Pt will improve FGA to at least 25/30 to show dec fall risk STG Duration 01/05/24 Government Instructor Goal (LTG) Pt will be abl eto do SLS for 20 sec B w/o pain to show improved balance LTG Duration 3 strength Short Term Goal (STG) Pt will be indep w/HEP STG Duration 01/05/24 Snf Goal (LTG) Pt will score at least 3/5 on LPM and 5/5 BLE MMT in order to allow pt to do typical daily activities w/o inc pain LTG Duration 02/13/24 walking Short Term Goal (STG) Pt will report typical daily walking does not inc pain into leg /back. STG Duration 2/ Snf Goal (LTG) Pt will be able to resume walks for over a mile w/o inc pain. LTG Duration 02/12 Assessment Summary Assessment Pt is improving w/more centralization of symptoms but significnat SI pain but noted less pain after. very min cues needed w/exercises and pt is indep. Pelvic tilts changed from supine to sitting as supine inc pain Physical Therapy Plan Frequency and Duration Frequency of Treatment 2x/Week Duration of treatment (weeks) 12 Plan of Care Start Date 11/21/23 Plan of Care End Date 02/13/24 Next Visit Focus/Plan Next Note Type Treatment Note Next Visit Plan advance core and hip stability , manual to pelvis and R hip/ HS
--- NOTE | 2023-12-16 09:50 | PT.OTN ---
Current Diagnoses Unspecified retinal vascular occlusion (12/16/23) Cerebral infarction due to embolism of left middle cerebral artery (12/16/23) Lumbago with sciatica, right side (12/16/23) Difficulty in walking, not elsewhere classified (12/16/23) Strain of muscle, fascia and tendon of the posterior muscle group at thigh level, right thigh, sequela (12/16/23) Physical Therapy Treatment Note PT-OP-A Visit Information Start: 11/20/23 18:32 Freq: Status: Active Protocol: Document 12/16/23 09:07 [facility] (Rec: 12/16/23 09:52 [facility] [id number]) Out-Patient Physical Therapy Visit Information Visit Information Visit Type Treatment Note Visit Note 04/10 Visit Start Time 09:07 Visit Stop Time 09:50 Total Visit Minutes 42 Visit Number 5 Number of BEACH ATTENDANT Visits 1 PT-OP-B Current Condition Start: 11/20/23 18:32 Freq: Status: Active Protocol: Document 11/21/23 08:40 [facility] (Rec: 11/21/23 09:47 [facility] [id number]) Current Condition History of Current Condition Current Complaints CVA 2 months ago; History of Current Condition Pt reprots artierial blood clot removed in L neck w/ resulting stroke during removal Sep 27, 2023. He had a pacemaker put in on Aug 06. Vascular surgeon said there were a lot of showers of strokes. They did a CT in recovery and transfered from [facility] to [facility] rehab. He was there for the weekend and was released morning. He has prior vision issues. 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 Cateract surgery scheduled for [facility]. 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 OT OP dc after eval d/t no needed. He has been having pain that goes up post thigh to back. Even when going to the mailbox, he notices it. Whenever he gets out of the car, it is really annoying and he has stairs. Pain in leg started about January. 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 He has been limping since that started. At one point in the recovery room, he had vision changes and weakness in R arm. He is back to be able to use his R hand. Pt feels like he has had a slight balance issues since the stroke. Even when he goes from sit ot stand , he feels a little lightheaded. He says he can still do things, but does have to compensate d/t pacemaker. Pt reports L neck is still numb. Used to be a walker but hasn't as much since retired since 2000. He would occasionally go for a walk still w/his . Has history of L MCL sprain in 2019 . He backed up and hit a small wall of concrete blocks behind him and started to fall and his L leg got twisted. He did PT for 3 months, and its been doing well. He is noticing he is more winded going up the flight of stairs at home. Treatment Goals Patient/Caregiver Goals walk normally; be able to get up/down stairs w/o pain, be able to go for walks PT-OP-C Subjective Start: 11/20/23 18:32 Freq: Status: Active Protocol: Document 12/16/23 09:07 [facility] (Rec: 12/16/23 09:52 [facility] [id number]) OP-PT Subjective Patient Comments Patient Comments Pt reports was pretty sore after last tx, need take Tylenol and used ice for recovery. Compliant with HEP. 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 PT-OP-D Balance Start: 11/20/23 18:32 Freq: Status: Active Protocol: Document 11/21/23 08:40 [facility] (Rec: 11/21/23 09:47 [facility] [id number]) Balance Tests Single Limb Standing Single Limb- Right 16 sec -pain hip Single Limb- Left 15 sec PT-OP-E Functional Tests Start: 11/20/23 18:32 Freq: Status: Active Protocol: Document 11/21/23 08:40 [facility] (Rec: 11/21/23 09:47 [facility] [id number]) Functional Tests 30 Second Sit to Stand Test Score 12 Comments pt winded Five Times Sit to Stand Test Score 13 sec Functional Gait Assessment Score 22/30 PT-OP-F Manual Assessment Start: 11/20/23 18:32 Freq: Status: Active Protocol: Document 11/21/23 08:40 [facility] (Rec: 11/21/23 09:47 [facility] [id number]) Manual Assessments Soft Tissue Assessment Soft Tissue Mobility Assessment R ES & QL tight and tender Joint Mobility Assessment Joint Mobility Assessment equal greater trochanters, R iliac crest higher PT-OP-G Mobility & Gait Start: 11/20/23 18:32 Freq: Status: Active Protocol: Document 11/21/23 08:40 [facility] (Rec: 11/21/23 09:47 [facility] [id number]) OP Gait Assessment Comments Gait Comments dec stance time RLE w/lat lean w/WB PT-OP-J Posture/Palpation/Skin Start: 11/20/23 18:32 Freq: Status: Active Protocol: Document 11/21/23 08:40 [facility] (Rec: 11/21/23 09:47 [facility] [id number]) Posture Evaluation [facility] Postural Classification System Ana Postural Classifications Posterior/Posterior Vertebral Compression Test 0 Lumbar Protective Mechanism Left AP 1 Lumbar Protective Mechanism Right AP 0 Lumbar Protective Mechanism Left PA 1 Lumbar Protective Mechanism Right PA 0 Comments Posture Comments 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 field return repairer BLEs, inc kyphosis, lat trunk lean L, fwd head PT-OP-K Range of Motion Start: 11/26/23 10:07 Freq: Status: Active Protocol: Document 11/26/23 09:47 [facility] (Rec: 11/26/23 10:10 [facility] [id number]) Lumbar Spine Range of Motion Lumbar Spine Active Percentage Flexion 50 Extension 50 Rotation Left 40 Rotation Right 40 Lateral Flexion Left 40 Lateral Flexion Right 50 Comments spine:30%, HS 70% of range-to mid [place]; pain in R spine w/SB B; pain w/L rot PT-OP-M Strength Start: 11/20/23 18:32 Freq: Status: Active Protocol: Document 11/21/23 08:40 [facility] (Rec: 11/21/23 09:47 [facility] [id number]) Hip Strength Hip Manual Muscle Testing Right Flexion (L2) 4 Good Extension (S1) 4- Good- Abduction 4 Good External Rotation 4 Good Internal Rotation 5 Normal Comments pain ER, abd, ext Left Flexion (L2) 4+ Good+ Extension (S1) 4- Good- Abduction 4 Good External Rotation 4 Good Internal Rotation 5 Normal Knee Strength Knee Manual Muscle Testing Right Flexion (S2) 4+ Good+ Extension (L3) 5 Normal Comments pain HS w/flex Left Flexion (S2) 4+ Good+ Extension (L3) 5 Normal Ankle/Foot Strength Ankle and Foot Manual Muscle Testing Right Dorsiflexion (L4) 5 Normal Plantarflexion (S1) 5 Normal Comments pain w/heel raises Left Dorsiflexion (L4) 5 Normal Plantarflexion (S1) 5 Normal Comments 20 heel raises B PT-OP-Q Treatments Start: 11/20/23 18:32 Freq: Status: Active Protocol: Document 12/16/23 09:07 [facility] (Rec: 12/16/23 09:52 [facility] [id number]) Therapeutic Exercises Supine Exercises core Supine Exercise Name abdominal sereis: 1. flex 2. diagonal (adduction )3. ext 4. flex Side bilateral Equipment Used isometric against hands Reps/Minutes 30 sec Comments cued head on pillow stretch Supine Exercise Name 1. LTR 2. across chest Side bilateral Reps/Minutes 1. 15 SH x3 B 2. 30 sec ea sciatic n glide Supine Exercise Name supine active knee ext /c AP Side bilateral Reps/Minutes 10 Comments good slow pacing Sitting Exercises pelvic tilts Sitting Exercise Name HEP reviewed Reps/Minutes 10 Comments cued upright posturing, stay within painfree range Standing Exercises carry wt up/down stairs Standing Exercise Name trialed in PT Resistance 25# basket Reps/Minutes 4 steps x2 sets sit to stands Standing Exercise Name 1. fast 2. slow Side bilateral Equipment Used chair Reps/Minutes 15 ea, 10# DB ok Other Exercises self STMs Other Exercise Name racClarity wall ES, glut Resistance R>L Reps/Minutes 2' Comments good response PT-OP-T Assessment and Plan Start: 11/20/23 18:32 Freq: Status: Active Protocol: Document 12/16/23 09:07 [facility] (Rec: 12/16/23 09:52 [facility] [id number]) Physical Therapy Assessment Goals balance Impairment FGA 22; SLS 15-16 sec B pain on R Short Term Goal (STG) Pt will improve FGA to at least 25/30 to show dec fall risk STG Duration 01/05/24 Mcc Goal (LTG) Pt will be abl eto do SLS for 20 sec B w/o pain to show improved balance LTG Duration 3/14 strength Short Term Goal (STG) Pt will be indep w/HEP STG Duration 01/05/24 Mcc Goal (LTG) Pt will score at least 3/5 on LPM and 5/5 BLE MMT in order to allow pt to do typical daily activities w/o inc pain LTG Duration 02/13/24 walking Short Term Goal (STG) Pt will report typical daily walking does not inc pain into leg /back. STG Duration 01/05 Green Tire Inspector Goal (LTG) Pt will be able to resume walks for over a mile w/o inc pain. LTG Duration 02/12 Assessment Summary Assessment Pt good response to AROM, core and sciatic nerve glide HEP, cued for allowing head on pillow to decrease strain on back during ther ex. Pt reports pain with PPT supine even with cuing, continue improve seated performance and posture for seated activities home. Tolerated addition of resistance during STS and stair mgt for assimulation carrying his wood up stairs, cues for elongated posture /c rhomboid fac and TA during ascend/descend for spinal support but also improved stability descending. Good feedback use ball wallself massage to back/glut for carryovery home comfort tight muscle support/relief. Physical Therapy Plan Frequency and Duration Frequency of Treatment 2x/Week Duration of treatment (weeks) 12 Plan of Care Start Date 11/21/23 Plan of Care End Date 02/13/24 Therapeutic Interventions Therapeutic Interventions Balance Training,Gait Training ,Home Exercise Program,Joint Mobilizations,Manual Therapy, Neuromuscular Re-education, Orthotic/Prosthetic Management ,Patient/Caregiver Education, Self-Care/Home Management,Soft Tissue Mobilization,Taping, Therapeutic Activities, Therapeutic Exercises, Vestibular Rehabilitation Modalities Cold Pack/Ice Massage,Electric Stimulation,Hot Packs Next Visit Focus/Plan Next Note Type Treatment Note Next Visit Plan Recheck HEP, add functional mobiltiy, SLS, mechanics carrying/lifting wood. POC: advance core and hip stability, manual to pelvis and R hip/HS
--- NOTE | 2023-12-20 11:34 | PT.OTN ---
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) Lumbago with sciatica, right side (12/20/23) Difficulty in walking, not elsewhere classified (12/20/23) Strain of muscle, fascia and tendon of the posterior muscle group at thigh level, right thigh, sequela (12/20/23) Physical Therapy Treatment Note PT-OP-A Visit Information Start: 11/20/23 18:32 Freq: Status: Active Protocol: Document 12/20/23 10:37 SP (Rec: 12/20/23 11:42 SP [id number]) Out-Patient Physical Therapy Visit Information Visit Information Visit Type Treatment Note Visit Note 05/11 Visit Start Time 10:37 Visit Stop Time 11:34 Total Visit Minutes 57 Visit Number 6 Number of STORE STANDARDS ASSOCIATE Visits 2 PT-OP-B Current Condition Start: 11/20/23 18:32 Freq: Status: Active Protocol: Document 11/21/23 08:40 [facility] (Rec: 11/21/23 09:47 [facility] [id number]) Current Condition History of Current Condition Current Complaints CVA 2 months ago; History of Current Condition Pt reprots artierial blood clot removed in L neck w/ resulting stroke during removal Sep 27, 2023. He had a pacemaker put in on Aug 06. Vascular surgeon said there were a lot of showers of strokes. They did a CT in recovery and transfered from [facility] to [facility] rehab. He was there for the weekend and was released morning. He has prior vision issues. 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 Cateract surgery scheduled for [facility]. 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 OT OP dc after eval d/t no needed. He has been having pain that goes up post thigh to back. Even when going to the mailbox, he notices it. Whenever he gets out of the car, it is really annoying and he has stairs. Pain in leg started about January. 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 He has been limping since that started. At one point in the recovery room, he had vision changes and weakness in R arm. He is back to be able to use his R hand. Pt feels like he has had a slight balance issues since the stroke. Even when he goes from sit ot stand , he feels a little lightheaded. He says he can still do things, but does have to compensate d/t pacemaker. Pt reports L neck is still numb. Used to be a walker but hasn't as much since retired since 2000. He would occasionally go for a walk still w/his . Has history of L MCL sprain in 2019 . He backed up and hit a small wall of concrete blocks behind him and started to fall and his L leg got twisted. He did PT for 3 months, and its been doing well. He is noticing he is more winded going up the flight of stairs at home. Treatment Goals Patient/Caregiver Goals walk normally; be able to get up/down stairs w/o pain, be able to go for walks PT-OP-C Subjective Start: 11/20/23 18:32 Freq: Status: Active Protocol: Document 12/20/23 10:37 SP (Rec: 12/20/23 11:42 SP [id number]) OP-PT Subjective Patient Comments Patient Comments Pt reports increase soreness in back later in day after last tx, thinks the added wt STS and carrying basket asc/ desc stair was to much last tx , had to lessen # 10>7 logs wood carrying in house to support back comfort. PT-OP-D Balance Start: 11/20/23 18:32 Freq: Status: Active Protocol: Document 11/21/23 08:40 [facility] (Rec: 11/21/23 09:47 [facility] [id number]) Balance Tests Single Limb Standing Single Limb- Right 16 sec -pain hip Single Limb- Left 15 sec PT-OP-E Functional Tests Start: 11/20/23 18:32 Freq: Status: Active Protocol: Document 11/21/23 08:40 [facility] (Rec: 11/21/23 09:47 [facility] [id number]) Functional Tests 30 Second Sit to Stand Test Score 12 Comments pt winded Five Times Sit to Stand Test Score 13 sec Functional Gait Assessment Score 22/30 PT-OP-F Manual Assessment Start: 11/20/23 18:32 Freq: Status: Active Protocol: Document 11/21/23 08:40 [facility] (Rec: 11/21/23 09:47 [facility] [id number]) Manual Assessments Soft Tissue Assessment Soft Tissue Mobility Assessment R ES & QL tight and tender Joint Mobility Assessment Joint Mobility Assessment equal greater trochanters, R iliac crest higher PT-OP-G Mobility & Gait Start: 11/20/23 18:32 Freq: Status: Active Protocol: Document 11/21/23 08:40 [facility] (Rec: 11/21/23 09:47 [facility] [id number]) OP Gait Assessment Comments Gait Comments dec stance time RLE w/lat lean w/WB PT-OP-J Posture/Palpation/Skin Start: 11/20/23 18:32 Freq: Status: Active Protocol: Document 11/21/23 08:40 [facility] (Rec: 11/21/23 09:47 [facility] [id number]) Posture Evaluation Ana Postural Classification System Ana Postural Classifications Posterior/Posterior Vertebral Compression Test 0 Lumbar Protective Mechanism Left AP 1 Lumbar Protective Mechanism Right AP 0 Lumbar Protective Mechanism Left PA 1 Lumbar Protective Mechanism Right PA 0 Comments Posture Comments slight route supervisor BLEs, inc kyphosis, lat trunk lean L, fwd head PT-OP-K Range of Motion Start: 11/26/23 10:07 Freq: Status: Active Protocol: Document 11/26/23 09:47 [facility] (Rec: 11/26/23 10:10 [facility] [id number]) Lumbar Spine Range of Motion Lumbar Spine Active Percentage Flexion 50 Extension 50 Rotation Left 40 Rotation Right 40 Lateral Flexion Left 40 Lateral Flexion Right 50 Comments spine:30%, HS 70% of range-to mid [place]; pain in R spine w/SB B; pain w/L rot PT-OP-M Strength Start: 11/20/23 18:32 Freq: Status: Active Protocol: Document 11/21/23 08:40 [facility] (Rec: 11/21/23 09:47 [facility] [id number]) Hip Strength Hip Manual Muscle Testing Right Flexion (L2) 4 Good Extension (S1) 4- Good- Abduction 4 Good External Rotation 4 Good Internal Rotation 5 Normal Comments pain ER, abd, ext Left Flexion (L2) 4+ Good+ Extension (S1) 4- Good- Abduction 4 Good External Rotation 4 Good Internal Rotation 5 Normal Knee Strength Knee Manual Muscle Testing Right Flexion (S2) 4+ Good+ Extension (L3) 5 Normal Comments pain HS w/flex Left Flexion (S2) 4+ Good+ Extension (L3) 5 Normal Ankle/Foot Strength Ankle and Foot Manual Muscle Testing Right Dorsiflexion (L4) 5 Normal Plantarflexion (S1) 5 Normal Comments pain w/heel raises Left Dorsiflexion (L4) 5 Normal Plantarflexion (S1) 5 Normal Comments 20 heel raises B PT-OP-Q Treatments Start: 11/20/23 18:32 Freq: Status: Active Protocol: Document 12/20/23 10:37 SP (Rec: 12/20/23 11:42 SP [id number]) Gym Equipment Therapeutic Ball core Exercise Details 1. LTR 2. KTC 3. HS kne flexion Body Position Hooklying Comments TB #3 LTR, KTC #3- therapist anchor 3. AROM- good core fac- add to HEP Therapeutic Exercises Supine Exercises stretch Supine Exercise Name piriformis across chest Side bilateral Reps/Minutes 30 sec ea Comments good response sciatic n glide Supine Exercise Name supine active knee ext /c Ankle circles Side bilateral Reps/Minutes 10 Comments good slow pacing Sitting Exercises pelvic tilts Sitting Exercise Name HEP reviewed Reps/Minutes 10 Comments cued upright posturing, stay within painfree range Standing Exercises sit to stands Standing Exercise Name 1. fast 2. slow Side bilateral Equipment Used chair Reps/Minutes 15 fast, 10 slow Other Exercises self STMs Other Exercise Name piriformis/glut Resistance R>L Equipment Used supine on table>floor axial hip IR/ER Reps/Minutes 3' total Comments good response lessening tension, sore but find will give benefits, wall gd Manual Therapy Treatment Soft Tissue Mobilization back Body Location R QL &ES Mobilization Type Rolling,Sustained Pressure, Other Intensity/Depth Moderate Body Position Sidelying Comments manual and MWM hip hike hip Body Location R piriformis, glut max Mobilization Type Rolling,Sustained Pressure, Other Intensity/Depth Moderate Body Position Sidelying Comments manual, MWM w/hip IR/ER Neuro Re-Education Treatment Balance Activities SLS Details added to HEP Comments LLE 20, 30 sec RLE 7, 30 sec cued elongated posture, scap complex, core fac over stance LE better form/stab PT-OP-R Modalities Start: 12/20/23 11:42 Freq: Status: Active Protocol: Document 12/20/23 10:37 SP (Rec: 12/20/23 11:44 SP [id number]) Hot Pack/Cold Pack Treatment R hip Location R piriformis/glut Patient Position Sidelying Treatment Duration (minutes) 7 Patient Tolerance Good Comments reports glut cold/numb, less soreness. PT-OP-T Assessment and Plan Start: 11/20/23 18:32 Freq: Status: Active Protocol: Document 12/20/23 10:37 SP (Rec: 12/20/23 11:42 SP [id number]) Physical Therapy Assessment Goals balance Impairment FGA 22; SLS 15-16 sec B pain on R Short Term Goal (STG) Pt will improve FGA to at least 25/30 to show dec fall risk STG Duration 01/05/24 Site Leader Goal (LTG) Pt will be abl eto do SLS for 20 sec B w/o pain to show improved balance LTG Duration 02/12 strength Short Term Goal (STG) Pt will be indep w/HEP STG Duration 01/05/24 Penitentiary Goal (LTG) Pt will score at least 3/5 on LPM and 5/5 BLE MMT in order to allow pt to do typical daily activities w/o inc pain LTG Duration 02/13/24 walking Short Term Goal (STG) Pt will report typical daily walking does not inc pain into leg /back. STG Duration 01/05 Site Leader Goal (LTG) Pt will be able to resume walks for over a mile w/o inc pain. LTG Duration 02/12 Assessment Summary Assessment Pt good feedback core response with increased resistance and HS flex into tball. IMproved SLS time with cuing for postural engagement/alignment corrections. Lessening tightness post manual and good response to self tennisball piriformis/glut proximal MWM hip IR/ER long axis on floor and CP to posterolateral R hip. . Physical Therapy Plan Frequency and Duration Frequency of Treatment 2x/Week Duration of treatment (weeks) 12 Plan of Care Start Date 11/21/23 Plan of Care End Date 02/13/24 Therapeutic Interventions Therapeutic Interventions Balance Training,Gait Training ,Home Exercise Program,Joint Mobilizations,Manual Therapy, Neuromuscular Re-education, Orthotic/Prosthetic Management ,Patient/Caregiver Education, Self-Care/Home Management,Soft Tissue Mobilization,Taping, Therapeutic Activities, Therapeutic Exercises, Vestibular Rehabilitation Modalities Cold Pack/Ice Massage,Electric Stimulation,Hot Packs Next Visit Focus/Plan Next Note Type Treatment Note Next Visit Plan Recheck HEP, added SLS, add functional mobility, mechanics carrying/lifting wood. POC: advance core and hip stability, manual to pelvis and R hip/HS
--- NOTE | 2023-12-23 09:51 | PT.OTN ---
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) Lumbago with sciatica, right side (12/23/23) Difficulty in walking, not elsewhere classified (12/23/23) Strain of muscle, fascia and tendon of the posterior muscle group at thigh level, right thigh, sequela (12/23/23) Physical Therapy Treatment Note PT-OP-A Visit Information Start: 11/20/23 18:32 Freq: Status: Active Protocol: Document 12/23/23 09:08 [facility] (Rec: 12/23/23 09:51 [facility] [id number]) Out-Patient Physical Therapy Visit Information Visit Information Visit Type Treatment Note Visit Note 06/10 Visit Start Time 09:10 Visit Stop Time 09:49 Total Visit Minutes 39 Visit Number 7 Number of CIVIL ENGINEER'S AIDE Visits 0 PT-OP-B Current Condition Start: 11/20/23 18:32 Freq: Status: Active Protocol: Document 11/21/23 08:40 [facility] (Rec: 11/21/23 09:47 [facility] [id number]) Current Condition History of Current Condition Current Complaints CVA 2 months ago; History of Current Condition Pt reprots artierial blood clot removed in L neck w/ resulting stroke during removal Sep 27, 2023. He had a pacemaker put in on Aug 06. Vascular surgeon said there were a lot of showers of strokes. They did a CT in recovery and transfered from [facility] to [facility] acute rehab. He was there for the weekend and was released morning. He has prior vision issues. 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 Cateract surgery scheduled for [facility]. 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 OT OP dc after eval d/t no needed. He has been having pain that goes up post thigh to back. Even when going to the mailbox, he notices it. Whenever he gets out of the car, it is really annoying and he has stairs. Pain in leg started about January. 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 He has been limping since that started. At one point in the recovery room, he had vision changes and weakness in R arm. He is back to be able to use his R hand. Pt feels like he has had a slight balance issues since the stroke. Even when he goes from sit ot stand , he feels a little lightheaded. He says he can still do things, but does have to compensate d/t pacemaker. Pt reports L neck is still numb. Used to be a walker but hasn't as much since retired since 2000. He would occasionally go for a walk still w/his . Has history of L MCL sprain in 2019 . He backed up and hit a small wall of concrete blocks behind him and started to fall and his L leg got twisted. He did PT for 3 months, and its been doing well. He is noticing he is more winded going up the flight of stairs at home. Treatment Goals Patient/Caregiver Goals walk normally; be able to get up/down stairs w/o pain, be able to go for walks PT-OP-C Subjective Start: 11/20/23 18:32 Freq: Status: Active Protocol: Document 12/23/23 09:08 [facility] (Rec: 12/23/23 09:51 [facility] [id number]) OP-PT Subjective Patient Comments Patient Comments Pt reports pain has been on/ off w/o specific things that bring it on. Mostly in R LB and hip. Did some walking in the store and felt it right in R hip. PT-OP-D Balance Start: 11/20/23 18:32 Freq: Status: Active Protocol: Document 11/21/23 08:40 [facility] (Rec: 11/21/23 09:47 [facility] [id number]) Balance Tests Single Limb Standing Single Limb- Right 16 sec -pain hip Single Limb- Left 15 sec PT-OP-E Functional Tests Start: 11/20/23 18:32 Freq: Status: Active Protocol: Document 11/21/23 08:40 [facility] (Rec: 11/21/23 09:47 [facility] [id number]) Functional Tests 30 Second Sit to Stand Test Score 12 Comments pt winded Five Times Sit to Stand Test Score 13 sec Functional Gait Assessment Score 22/30 PT-OP-F Manual Assessment Start: 11/20/23 18:32 Freq: Status: Active Protocol: Document 11/21/23 08:40 [facility] (Rec: 11/21/23 09:47 [facility] [id number]) Manual Assessments Soft Tissue Assessment Soft Tissue Mobility Assessment R ES & QL tight and tender Joint Mobility Assessment Joint Mobility Assessment equal greater trochanters, R iliac crest higher PT-OP-G Mobility & Gait Start: 11/20/23 18:32 Freq: Status: Active Protocol: Document 11/21/23 08:40 [facility] (Rec: 11/21/23 09:47 [facility] [id number]) OP Gait Assessment Comments Gait Comments dec stance time RLE w/lat lean w/WB PT-OP-J Posture/Palpation/Skin Start: 11/20/23 18:32 Freq: Status: Active Protocol: Document 11/21/23 08:40 [facility] (Rec: 11/21/23 09:47 [facility] [id number]) Posture Evaluation [facility] Postural Classification System Ana Postural Classifications Posterior/Posterior Vertebral Compression Test 0 Lumbar Protective Mechanism Left AP 1 Lumbar Protective Mechanism Right AP 0 Lumbar Protective Mechanism Left PA 1 Lumbar Protective Mechanism Right PA 0 Comments Posture Comments slight last turner BLEs, inc kyphosis, lat trunk lean L, fwd head PT-OP-K Range of Motion Start: 11/26/23 10:07 Freq: Status: Active Protocol: Document 11/26/23 09:47 [facility] (Rec: 11/26/23 10:10 [facility] [id number]) Lumbar Spine Range of Motion Lumbar Spine Active Percentage Flexion 50 Extension 50 Rotation Left 40 Rotation Right 40 Lateral Flexion Left 40 Lateral Flexion Right 50 Comments spine:30%, HS 70% of range-to mid [place]; pain in R spine w/SB B; pain w/L rot PT-OP-M Strength Start: 11/20/23 18:32 Freq: Status: Active Protocol: Document 11/21/23 08:40 [facility] (Rec: 11/21/23 09:47 [facility] [id number]) Hip Strength Hip Manual Muscle Testing Right Flexion (L2) 4 Good Extension (S1) 4- Good- Abduction 4 Good External Rotation 4 Good Internal Rotation 5 Normal Comments pain ER, abd, ext Left Flexion (L2) 4+ Good+ Extension (S1) 4- Good- Abduction 4 Good External Rotation 4 Good Internal Rotation 5 Normal Knee Strength Knee Manual Muscle Testing Right Flexion (S2) 4+ Good+ Extension (L3) 5 Normal Comments pain HS w/flex Left Flexion (S2) 4+ Good+ Extension (L3) 5 Normal Ankle/Foot Strength Ankle and Foot Manual Muscle Testing Right Dorsiflexion (L4) 5 Normal Plantarflexion (S1) 5 Normal Comments pain w/heel raises Left Dorsiflexion (L4) 5 Normal Plantarflexion (S1) 5 Normal Comments 20 heel raises B PT-OP-Q Treatments Start: 11/20/23 18:32 Freq: Status: Active Protocol: Document 12/23/23 09:08 [facility] (Rec: 12/23/23 09:51 [facility] [id number]) Gym Equipment Shuttle Balance red clips Comments fwd & side: WBOS & NBOS fwd: staggered stance B Therapeutic Exercises Sitting Exercises stretches Sitting Exercise Name 1. figure 4 2. cross body piriformis Side bilateral Reps/Minutes 30 sec ea Standing Exercises step up Standing Exercise Name w/alt march Side bilateral Equipment Used 5 in Reps/Minutes 12 resisted walk Standing Exercise Name 1.monster walk fwd 2. backwards Side bilateral Equipment Used Lvl 1 Reps/Minutes 20ft sidesteps Side bilateral Equipment Used L1 Reps/Minutes 20ft Manual Therapy Treatment Soft Tissue Mobilization back Body Location R>L QL &ES Mobilization Type Rolling,Sustained Pressure, Other Intensity/Depth Moderate Body Position Sidelying Comments w/pelvic up/down rot Joint Mobilizations lumbar Body Position seated Comments L5 L up and fwd glide FM L4 R down and back glide FM Neuro Re-Education Treatment Balance Activities tandem stance Details B trials SLS Details B trials PT-OP-R Modalities Start: 12/20/23 11:42 Freq: Status: Active Protocol: Document 12/20/23 10:37 SP (Rec: 12/20/23 11:44 SP [id number]) Hot Pack/Cold Pack Treatment R hip Location R piriformis/glut Patient Position Sidelying Treatment Duration (minutes) 7 Patient Tolerance Good Comments reports glut cold/numb, less soreness. PT-OP-T Assessment and Plan Start: 11/20/23 18:32 Freq: Status: Active Protocol: Document 12/23/23 09:08 [facility] (Rec: 12/23/23 09:51 [facility] [id number]) Physical Therapy Assessment Goals balance Impairment FGA 22; SLS 15-16 sec B pain on R Short Term Goal (STG) Pt will improve FGA to at least 25/30 to show dec fall risk STG Duration 01/05/24 Data Abstractor Goal (LTG) Pt will be abl eto do SLS for 20 sec B w/o pain to show improved balance LTG Duration 02/12 strength Short Term Goal (STG) Pt will be indep w/HEP STG Duration 01/05/24 Data Abstractor Goal (LTG) Pt will score at least 3/5 on LPM and 5/5 BLE MMT in order to allow pt to do typical daily activities w/o inc pain LTG Duration 02/13/24 walking Short Term Goal (STG) Pt will report typical daily walking does not inc pain into leg /back. STG Duration 01/05 Shelter Goal (LTG) Pt will be able to resume walks for over a mile w/o inc pain. LTG Duration 02/12 Assessment Summary Assessment Pt reports relief after manual treatment today and notes I can move. He had improved lumbar ext also. He had mild pain in hip like 12/11 after hip standing exercises taht was relieved w/seated stretches. ecnouraged to do these at home as needed. Physical Therapy Plan Frequency and Duration Frequency of Treatment 2x/Week Duration of treatment (weeks) 12 Plan of Care Start Date 11/21/23 Plan of Care End Date 02/13/24 Next Visit Focus/Plan Next Note Type Treatment Note Next Visit Plan cont to work on mechanics for lifting and carrying, balance and core/hip strength manual to pelvis and back to dec pain
--- NOTE | 2023-12-26 09:45 | PT.OTN ---
Current Diagnoses Unspecified retinal vascular occlusion (12/26/23) Cerebral infarction due to embolism of left middle cerebral artery (12/26/23) Lumbago with sciatica, right side (12/26/23) Difficulty in walking, not elsewhere classified (12/26/23) Strain of muscle, fascia and tendon of the posterior muscle group at thigh level, right thigh, sequela (12/26/23) Physical Therapy Treatment Note PT-OP-A Visit Information Start: 11/20/23 18:32 Freq: Status: Active Protocol: Document 12/26/23 09:04 SP (Rec: 12/26/23 10:07 SP [id number]) Out-Patient Physical Therapy Visit Information Visit Information Visit Type Treatment Note Visit Note 07/11 Visit Start Time 09:04 Visit Stop Time 09:45 Visit Number 8 Number of TECHNICAL LABORATORY ASST Visits 1 PT-OP-B Current Condition Start: 11/20/23 18:32 Freq: Status: Active Protocol: Document 11/21/23 08:40 [facility] (Rec: 11/21/23 09:47 [facility] [id number]) Current Condition History of Current Condition Current Complaints CVA 2 months ago; History of Current Condition Pt reprots artierial blood clot removed in L neck w/ resulting stroke during removal Sep 27, 2023. He had a pacemaker put in on Aug 06. Vascular surgeon said there were a lot of showers of strokes. They did a CT in recovery and transfered from [facility] to [facility] rehab. He was there for the weekend and was released morning. He has prior vision issues. 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 Cateract surgery scheduled for [facility]. 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 OT OP dc after eval d/t no needed. He has been having pain that goes up post thigh to back. Even when going to the mailbox, he notices it. Whenever he gets out of the car, it is really annoying and he has stairs. Pain in leg started about January. 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 He has been limping since that started. At one point in the recovery room, he had vision changes and weakness in R arm. He is back to be able to use his R hand. Pt feels like he has had a slight balance issues since the stroke. Even when he goes from sit ot stand , he feels a little lightheaded. He says he can still do things, but does have to compensate d/t pacemaker. Pt reports L neck is still numb. Used to be a walker but hasn't as much since retired since 2000. He would occasionally go for a walk still w/his . Has history of L MCL sprain in 2019 . He backed up and hit a small wall of concrete blocks behind him and started to fall and his L leg got twisted. He did PT for 3 months, and its been doing well. He is noticing he is more winded going up the flight of stairs at home. Treatment Goals Patient/Caregiver Goals walk normally; be able to get up/down stairs w/o pain, be able to go for walks PT-OP-C Subjective Start: 11/20/23 18:32 Freq: Status: Active Protocol: Document 12/26/23 09:04 SP (Rec: 12/26/23 10:07 SP [id number]) OP-PT Subjective Patient Comments Patient Comments Pt reports still sore across B pelvis/low back into mainly R glut. Usign ice pack at home, helps. PT-OP-D Balance Start: 11/20/23 18:32 Freq: Status: Active Protocol: Document 11/21/23 08:40 [facility] (Rec: 11/21/23 09:47 [facility] [id number]) Balance Tests Single Limb Standing Single Limb- Right 16 sec -pain hip Single Limb- Left 15 sec PT-OP-E Functional Tests Start: 11/20/23 18:32 Freq: Status: Active Protocol: Document 11/21/23 08:40 [facility] (Rec: 11/21/23 09:47 [facility] [id number]) Functional Tests 30 Second Sit to Stand Test Score 12 Comments pt winded Five Times Sit to Stand Test Score 13 sec Functional Gait Assessment Score 22/30 PT-OP-F Manual Assessment Start: 11/20/23 18:32 Freq: Status: Active Protocol: Document 11/21/23 08:40 [facility] (Rec: 11/21/23 09:47 [facility] [id number]) Manual Assessments Soft Tissue Assessment Soft Tissue Mobility Assessment R ES & QL tight and tender Joint Mobility Assessment Joint Mobility Assessment equal greater trochanters, R iliac crest higher PT-OP-G Mobility & Gait Start: 11/20/23 18:32 Freq: Status: Active Protocol: Document 11/21/23 08:40 [facility] (Rec: 11/21/23 09:47 [facility] [id number]) OP Gait Assessment Comments Gait Comments dec stance time RLE w/lat lean w/WB PT-OP-J Posture/Palpation/Skin Start: 11/20/23 18:32 Freq: Status: Active Protocol: Document 11/21/23 08:40 [facility] (Rec: 11/21/23 09:[id number] Posture Evaluation [facility] Postural Classification System [place] Postural Classifications Posterior/Posterior Vertebral Compression Test 0 Lumbar Protective Mechanism Left AP 1 Lumbar Protective Mechanism Right AP 0 Lumbar Protective Mechanism Left PA 1 Lumbar Protective Mechanism Right PA 0 Comments Posture Comments slight turn down worker BLEs, inc kyphosis, lat trunk lean L, fwd head PT-OP-K Range of Motion Start: 11/26/23 10:07 Freq: Status: Active Protocol: Document 11/26/23 09:47 [facility] (Rec: 11/26/23 10:10 [facility] [id number]) Lumbar Spine Range of Motion Lumbar Spine Active Percentage Flexion 50 Extension 50 Rotation Left 40 Rotation Right 40 Lateral Flexion Left 40 Lateral Flexion Right 50 Comments spine:30%, HS 70% of range-to mid [place]; pain in R spine w/SB B; pain w/L rot PT-OP-M Strength Start: 11/20/23 18:32 Freq: Status: Active Protocol: Document 11/21/23 08:40 [facility] (Rec: 11/21/23 09:47 [facility] [id number]) Hip Strength Hip Manual Muscle Testing Right Flexion (L2) 4 Good Extension (S1) 4- Good- Abduction 4 Good External Rotation 4 Good Internal Rotation 5 Normal Comments pain ER, abd, ext Left Flexion (L2) 4+ Good+ Extension (S1) 4- Good- Abduction 4 Good External Rotation 4 Good Internal Rotation 5 Normal Knee Strength Knee Manual Muscle Testing Right Flexion (S2) 4+ Good+ Extension (L3) 5 Normal Comments pain HS w/flex Left Flexion (S2) 4+ Good+ Extension (L3) 5 Normal Ankle/Foot Strength Ankle and Foot Manual Muscle Testing Right Dorsiflexion (L4) 5 Normal Plantarflexion (S1) 5 Normal Comments pain w/heel raises Left Dorsiflexion (L4) 5 Normal Plantarflexion (S1) 5 Normal Comments 20 heel raises B PT-OP-Q Treatments Start: 11/20/23 18:32 Freq: Status: Active Protocol: Document 12/26/23 09:04 SP (Rec: 12/26/23 10:07 SP [id number]) Gym Equipment Shuttle Balance red clips Details WBOS, NBOS, Stagger, Mini squat Reps/Duration 6 Comments HTs Improved no UE contact 60% CGA , cues for wt shift stability over LILLIAN Sport Cord red Exercise Details 1. step ups 4>8 2. high knees fwd, lateral Reps/Duration 5 reps fwd, 3 reps lateral ( short on time) Comments cues for patterning steps Therapeutic Exercises Standing Exercises back extension Standing Exercise Name trialed in PT: hands on hips Reps/Minutes 3 reps 5 SH Comments cued painfree range lift Standing Exercise Name trialed in PT, eccentric flexion Resistance 5# wt on dowel Equipment Used toward 12 step Reps/Minutes 5 reps Comments cued soft knee, scap set retraction, soft/slight flex knees Other Exercises child's pose Other Exercise Name trialed post manual Resistance arms front Reps/Minutes 3 x20 SH Comments good feedback stretch, knees ok. Manual Therapy Treatment Soft Tissue Mobilization back Body Location R>L QL &ES Mobilization Type Rolling,Sustained Pressure, Other Intensity/Depth Moderate Body Position Sidelying Comments w/pelvic up/down rot hip Body Location R>L piriformis, glut max Mobilization Type Rolling,Sustained Pressure, Other Intensity/Depth Moderate Body Position Sidelying Comments manual, MWM w/hip IR/ER Manual Techniques PROM B hips Body Position Prone Comments post MWM hip IR/ER, end feel hip IR, ER stretching with good PT-OP-R Modalities Start: 12/20/23 11:42 Freq: Status: Active Protocol: Document 12/20/23 10:37 SP (Rec: 12/20/23 11:44 SP [id number]) Hot Pack/Cold Pack Treatment R hip Location R piriformis/glut Patient Position Sidelying Treatment Duration (minutes) 7 Patient Tolerance Good Comments reports glut cold/numb, less soreness. PT-OP-T Assessment and Plan Start: 11/20/23 18:32 Freq: Status: Active Protocol: Document 12/26/23 09:04 SP (Rec: 12/26/23 10:07 SP [id number]) Physical Therapy Assessment Goals balance Impairment FGA 22; SLS 15-16 sec B pain on R Short Term Goal (STG) Pt will improve FGA to at least 25/30 to show dec fall risk STG Duration 01/05/24 Custom Clothier Goal (LTG) Pt will be abl eto do SLS for 20 sec B w/o pain to show improved balance LTG Duration 02/12 strength Short Term Goal (STG) Pt will be indep w/HEP STG Duration 01/05/24 Custom Clothier Goal (LTG) Pt will score at least 3/5 on LPM and 5/5 BLE MMT in order to allow pt to do typical daily activities w/o inc pain LTG Duration 02/13/24 walking Short Term Goal (STG) Pt will report typical daily walking does not inc pain into leg /back. STG Duration 01/05 Fpc Goal (LTG) Pt will be able to resume walks for over a mile w/o inc pain. LTG Duration 02/12 Assessment Summary Assessment Pt reports increased back mobility post manual. Reported little back twinge coming up from trialed deadlift for LS and HS active stretch under resistance, back ok after cues for scap set retraction and TA into 90> full upright stance. I feel like worked, no pain, end tx. Physical Therapy Plan Frequency and Duration Frequency of Treatment 2x/Week Duration of treatment (weeks) 12 Plan of Care Start Date 11/21/23 Plan of Care End Date 02/13/24 Therapeutic Interventions Therapeutic Interventions Balance Training,Gait Training ,Home Exercise Program,Joint Mobilizations,Manual Therapy, Neuromuscular Re-education, Orthotic/Prosthetic Management ,Patient/Caregiver Education, Self-Care/Home Management,Soft Tissue Mobilization,Taping, Therapeutic Activities, Therapeutic Exercises, Vestibular Rehabilitation Modalities Cold Pack/Ice Massage,Electric Stimulation,Hot Packs Next Visit Focus/Plan Next Note Type Treatment Note Next Visit Plan cont to work on mechanics for lifting and carrying, balance and core/hip strength manual to pelvis and back to dec pain
--- NOTE | 2024-01-01 09:45 | PT.OTN ---
Current Diagnoses Unspecified retinal vascular occlusion (01/01/24) Cerebral infarction due to embolism of left middle cerebral artery (01/01/24) Lumbago with sciatica, right side (01/01/24) Difficulty in walking, not elsewhere classified (01/01/24) Strain of muscle, fascia and tendon of the posterior muscle group at thigh level, right thigh, sequela (01/01/24) Physical Therapy Treatment Note PT-OP-A Visit Information Start: 11/20/23 18:32 Freq: Status: Active Protocol: Document 01/01/24 08:59 SP (Rec: 01/01/24 09:50 SP [id number]) Out-Patient Physical Therapy Visit Information Visit Information Visit Type Treatment Note Visit Note 08/11 Visit Start Time 09:00 Visit Stop Time 09:45 Visit Number 9 Number of REQUISITION APPROVER Visits 2 PT-OP-B Current Condition Start: 11/20/23 18:32 Freq: Status: Active Protocol: Document 11/21/23 08:40 [facility] (Rec: 11/21/23 09:47 [facility] [id number]) Current Condition History of Current Condition Current Complaints CVA 2 months ago; History of Current Condition Pt reprots artierial blood clot removed in L neck w/ resulting stroke during removal Sep 27, 2023. He had a pacemaker put in on Aug 06. Vascular surgeon said there were a lot of showers of strokes. They did a CT in recovery and transfered from [facility] to [facility] rehab. He was there for the weekend and was released morning. He has prior vision issues. 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 Cateract surgery scheduled for [facility]. 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 OT OP dc after eval d/t no needed. He has been having pain that goes up post thigh to back. Even when going to the mailbox, he notices it. Whenever he gets out of the car, it is really annoying and he has stairs. Pain in leg started about January. 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 He has been limping since that started. At one point in the recovery room, he had vision changes and weakness in R arm. He is back to be able to use his R hand. Pt feels like he has had a slight balance issues since the stroke. Even when he goes from sit ot stand , he feels a little lightheaded. He says he can still do things, but does have to compensate d/t pacemaker. Pt reports L neck is still numb. Used to be a walker but hasn't as much since retired since 2000. He would occasionally go for a walk still w/his . Has history of L MCL sprain in 2019 . He backed up and hit a small wall of concrete blocks behind him and started to fall and his L leg got twisted. He did PT for 3 months, and its been doing well. He is noticing he is more winded going up the flight of stairs at home. Treatment Goals Patient/Caregiver Goals walk normally; be able to get up/down stairs w/o pain, be able to go for walks PT-OP-C Subjective Start: 11/20/23 18:32 Freq: Status: Active Protocol: Document 01/01/24 08:59 SP (Rec: 01/01/24 09:50 SP [id number]) OP-PT Subjective Patient Comments Patient Comments Pt reports his R shld bothersome after last tx and thinks due to child's pose to far stretch in his arm, may need to discontinue this otherwise felt ok. PT-OP-D Balance Start: 11/20/23 18:32 Freq: Status: Active Protocol: Document 11/21/23 08:40 [facility] (Rec: 11/21/23 09:47 [facility] [id number]) Balance Tests Single Limb Standing Single Limb- Right 16 sec -pain hip Single Limb- Left 15 sec PT-OP-E Functional Tests Start: 11/20/23 18:32 Freq: Status: Active Protocol: Document 11/21/23 08:40 [facility] (Rec: 11/21/23 09:47 [facility] [id number]) Functional Tests 30 Second Sit to Stand Test Score 12 Comments pt winded Five Times Sit to Stand Test Score 13 sec Functional Gait Assessment Score 22/30 PT-OP-F Manual Assessment Start: 11/20/23 18:32 Freq: Status: Active Protocol: Document 11/21/23 08:40 [facility] (Rec: 11/21/23 09:47 [facility] [id number]) Manual Assessments Soft Tissue Assessment Soft Tissue Mobility Assessment R ES & QL tight and tender Joint Mobility Assessment Joint Mobility Assessment equal greater trochanters, R iliac crest higher PT-OP-G Mobility & Gait Start: 11/20/23 18:32 Freq: Status: Active Protocol: Document 11/21/23 08:40 [facility] (Rec: 11/21/23 09:47 [facility] [id number]) OP Gait Assessment Comments Gait Comments dec stance time RLE w/lat lean w/WB PT-OP-J Posture/Palpation/Skin Start: 11/20/23 18:32 Freq: Status: Active Protocol: Document 11/21/23 08:40 [facility] (Rec: 11/21/23 09:47 [facility] [id number]) Posture Evaluation [facility] Postural Classification System [facility] Postural Classifications Posterior/Posterior Vertebral Compression Test 0 Lumbar Protective Mechanism Left AP 1 Lumbar Protective Mechanism Right AP 0 Lumbar Protective Mechanism Left PA 1 Lumbar Protective Mechanism Right PA 0 Comments Posture Comments slight field return repairer BLEs, inc kyphosis, lat trunk lean L, fwd head PT-OP-K Range of Motion Start: 11/26/23 10:07 Freq: Status: Active Protocol: Document 11/26/23 09:47 [facility] (Rec: 11/26/23 10:10 [facility] [id number]) Lumbar Spine Range of Motion Lumbar Spine Active Percentage Flexion 50 Extension 50 Rotation Left 40 Rotation Right 40 Lateral Flexion Left 40 Lateral Flexion Right 50 Comments spine:30%, HS 70% of range-to mid [place]; pain in R spine w/SB B; pain w/L rot PT-OP-M Strength Start: 11/20/23 18:32 Freq: Status: Active Protocol: Document 11/21/23 08:40 [facility] (Rec: 11/21/23 09:47 [facility] [id number]) Hip Strength Hip Manual Muscle Testing Right Flexion (L2) 4 Good Extension (S1) 4- Good- Abduction 4 Good External Rotation 4 Good Internal Rotation 5 Normal Comments pain ER, abd, ext Left Flexion (L2) 4+ Good+ Extension (S1) 4- Good- Abduction 4 Good External Rotation 4 Good Internal Rotation 5 Normal Knee Strength Knee Manual Muscle Testing Right Flexion (S2) 4+ Good+ Extension (L3) 5 Normal Comments pain HS w/flex Left Flexion (S2) 4+ Good+ Extension (L3) 5 Normal Ankle/Foot Strength Ankle and Foot Manual Muscle Testing Right Dorsiflexion (L4) 5 Normal Plantarflexion (S1) 5 Normal Comments pain w/heel raises Left Dorsiflexion (L4) 5 Normal Plantarflexion (S1) 5 Normal Comments 20 heel raises B PT-OP-Q Treatments Start: 11/20/23 18:32 Freq: Status: Active Protocol: Document 01/01/24 08:59 SP (Rec: 01/01/24 09:50 SP [id number]) Gym Equipment Shuttle Recovery unilateral squat Details good slow pace/eccentric control and effort, painfree Resistance 50 (2 navy) Reps/Time x15 bilateral squat Resistance 75 (3 navy bands) Reps/Time x20 Sport Cord bue sport cord Exercise Details improved more challenge: mat: Comments uneven mat: 1. fwd/bwd/lateral- 3 reps each directions 2. step ups: 6 step +blue foam- 10 reps each 2. BOSU: 5 reps each - good challenge 10%A contact elbow the CGA via gait belt * improved stability COG over LILLIAN stepping Therapeutic Exercises Standing Exercises stretching Standing Exercise Name initiated in PT: calf, hip flexor Reps/Minutes 20SH Comments good feedback posterior chain stretch- post balance activities sink stretch Standing Exercise Name added to HEP Side bilateral Equipment Used Trunk flexion, grasp rail, lean back pelvic tilt Reps/Minutes 3rep 20 SH Comments good feedback QL stretch, some tricep too lift Standing Exercise Name teccentric flexion Resistance 10# wt on dowel Equipment Used toward 8 step Reps/Minutes 5 reps, painfree Comments cued soft knee, scap set retraction, soft/slight flex knees sidesteps Side bilateral Equipment Used L3 at mid [place]> L2 next tx due to LB recruitment Reps/Minutes 15ft x2 laps Comments cued TA, neutral pelvis, posturing upright, little back recuir last 3 steps sit to stands Standing Exercise Name 1. slow 2. fast Side bilateral Resistance 10# DB at chest Equipment Used chair Reps/Minutes 5 slow /c wt, 10 fast Comments pt challenged need sit brief complete contact chair lower surface Other Exercises child's pose Other Exercise Name caused R UE discomfort post tx Comments DC Neuro Re-Education Treatment Balance Activities hurdlesl Details initiated in PT Surface CG via gait belt Comments 6 hurdles, 4 foam cushions, 2 pods receiprical stepping EASY : > mat over 6 step & wedges blocks uneven incline/decline EASY added foam cushion and hurdles- little more challenging- cues for slower pacing wt shift over stance LE for safety clearing LE over [place] and scap engage center stability. PT-OP-R Modalities Start: 12/20/23 11:42 Freq: Status: Active Protocol: Document 12/20/23 10:37 SP (Rec: 12/20/23 11:44 SP [id number]) Hot Pack/Cold Pack Treatment R hip Location R piriformis/glut Patient Position Sidelying Treatment Duration (minutes) 7 Patient Tolerance Good Comments reports glut cold/numb, less soreness. 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 STG Duration 01/05 Longterm Goal (LTG) Pt will be able to resume walks for over a mile w/o inc pain. LTG Duration 02/12 Assessment Summary Assessment Pt tolerated progressed dynamic advanced balance activities to improve self safety over uneven terrain out in community wish to return to. He improved unsteady over wts shifts corrections requiring MIn A to CGA post cues for slower pacing, increase wt shift over stance LE and core/rhomboid enagement . Pt did report little LB recruitment during resisted stepping last few steps, cues for posture/TA but possible body tired. Good feedback to stretching review end tx for recovery. Pt reports painfree end tx good workout today and suprised could do the things did today. Physical Therapy Plan Frequency and Duration Frequency of Treatment 2x/Week Duration of treatment (weeks) 12 Plan of Care Start Date 11/21/23 Plan of Care End Date 02/13/24 Therapeutic Interventions Therapeutic Interventions Balance Training,Gait Training ,Home Exercise Program,Joint Mobilizations,Manual Therapy, Neuromuscular Re-education, Orthotic/Prosthetic Management ,Patient/Caregiver Education, Self-Care/Home Management,Soft Tissue Mobilization,Taping, Therapeutic Activities, Therapeutic Exercises, Vestibular Rehabilitation Modalities Cold Pack/Ice Massage,Electric Stimulation,Hot Packs Next Visit Focus/Plan Next Note Type Treatment Note Next Visit Plan *PN in 2 tx, 11th visit. Ask response to dynamic balance activities last tx. POC: cont to work on mechanics for lifting and carrying, balance and core/hip strength manual to pelvis and back to dec pain
--- NOTE | 2024-01-06 10:30 | PT.OTN ---
Current Diagnoses Unspecified retinal vascular occlusion (01/06/24) Cerebral infarction due to embolism of left middle cerebral artery (01/06/24) Lumbago with sciatica, right side (01/06/24) Difficulty in walking, not elsewhere classified (01/06/24) Strain of muscle, fascia and tendon of the posterior muscle group at thigh level, right thigh, sequela (01/06/24) Physical Therapy Treatment Note PT-OP-A Visit Information Start: 11/20/23 18:32 Freq: Status: Active Protocol: Document 01/06/24 09:49 SP (Rec: 01/06/24 10:35 SP [id number]) Out-Patient Physical Therapy Visit Information Visit Information Visit Type Treatment Note Visit Note 09/10 Visit Start Time 09:49 Visit Stop Time 10:30 Visit Number 10 Number of FIRE PROTECTION INSPECTOR Visits 3 PT-OP-B Current Condition Start: 11/20/23 18:32 Freq: Status: Active Protocol: Document 11/21/23 08:40 [facility] (Rec: 11/21/23 09:47 [facility] [id number]) Current Condition History of Current Condition Current Complaints CVA 2 months ago; History of Current Condition Pt reprots artierial blood clot removed in L neck w/ resulting stroke during removal Sep 27, 2023. He had a pacemaker put in on Aug 06. Vascular surgeon said there were a lot of showers of strokes. They did a CT in recovery and transfered from [facility] to [facility] rehab. He was there for the weekend and was released morning. He has prior vision issues. 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 Cateract surgery scheduled for [facility]. He saw OT, VIDEOGAME TESTER and vision therapy. OT OP dc after eval d/t no needed. He has been having pain that goes up post thigh to back. Even when going to the mailbox, he notices it. Whenever he gets out of the car, it is really annoying and he has stairs. Pain in leg started about January. 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 He has been limping since that started. At one point in the recovery room, he had vision changes and weakness in R arm. He is back to be able to use his R hand. Pt feels like he has had a slight balance issues since the stroke. Even when he goes from sit ot stand , he feels a little lightheaded. He says he can still do things, but does have to compensate d/t pacemaker. Pt reports L neck is still numb. Used to be a walker but hasn't as much since retired since 2000. He would occasionally go for a walk still w/his . Has history of L MCL sprain in 2019 . He backed up and hit a small wall of concrete blocks behind him and started to fall and his L leg got twisted. He did PT for 3 months, and its been doing well. He is noticing he is more winded going up the flight of stairs at home. Treatment Goals Patient/Caregiver Goals walk normally; be able to get up/down stairs w/o pain, be able to go for walks PT-OP-C Subjective Start: 11/20/23 18:32 Freq: Status: Active Protocol: Document 01/06/24 09:49 SP (Rec: 01/06/24 10:35 SP [id number]) OP-PT Subjective Patient Comments Patient Comments Pt reports he feels good after PT but when gets out of car ride home, feels stiff irritation in back. He reports painfree level surface, 3% inclined pain 6/10 still but doesn't prevent him for walking. PT-OP-D Balance Start: 11/20/23 18:32 Freq: Status: Active Protocol: Document 11/21/23 08:40 [facility] (Rec: 11/21/23 09:47 [facility] [id number]) Balance Tests Single Limb Standing Single Limb- Right 16 sec -pain hip Single Limb- Left 15 sec PT-OP-E Functional Tests Start: 11/20/23 18:32 Freq: Status: Active Protocol: Document 11/21/23 08:40 [facility] (Rec: 11/21/23 09:47 [facility] [id number]) Functional Tests 30 Second Sit to Stand Test Score 12 Comments pt winded Five Times Sit to Stand Test Score 13 sec Functional Gait Assessment Score 2230 PT-OP-F Manual Assessment Start: 11/20/23 18:32 Freq: Status: Active Protocol: Document 11/21/23 08:40 [facility] (Rec: 11/21/23 09:47 [facility] [id number]) Manual Assessments Soft Tissue Assessment Soft Tissue Mobility Assessment R ES & QL tight and tender Joint Mobility Assessment Joint Mobility Assessment equal greater trochanters, R iliac crest higher PT-OP-G Mobility & Gait Start: 11/20/23 18:32 Freq: Status: Active Protocol: Document 11/21/23 08:40 [facility] (Rec: 11/21/23 09:47 [facility] [id number]) OP Gait Assessment Comments Gait Comments dec stance time RLE w/lat lean w/WB PT-OP-J Posture/Palpation/Skin Start: 11/20/23 18:32 Freq: Status: Active Protocol: Document 11/21/23 08:40 [facility] (Rec: 11/21/23 09:47 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 (Rec: 11/26/23 10:10 [facility] [id number]) Lumbar Spine Range of Motion Lumbar Spine Active Percentage Flexion 50 Extension 50 Rotation Left 40 Rotation Right 40 Lateral Flexion Left 40 Lateral Flexion Right 50 Comments spine:30%, HS 70% of range-to mid [place]; pain in R spine w/SB B; pain w/L rot PT-OP-M Strength Start: 11/20/23 18:32 Freq: Status: Active Protocol: Document 11/21/23 08:40 [facility] (Rec: 11/21/23 09:47 [facility] [id number]) Hip Strength Hip Manual Muscle Testing Right Flexion (L2) 4 Good Extension (S1) 4- Good- Abduction 4 Good External Rotation 4 Good Internal Rotation 5 Normal Comments pain ER, abd, ext Left Flexion (L2) 4+ Good+ Extension (S1) 4- Good- Abduction 4 Good External Rotation 4 Good Internal Rotation 5 Normal Knee Strength Knee Manual Muscle Testing Right Flexion (S2) 4+ Good+ Extension (L3) 5 Normal Comments pain HS w/flex Left Flexion (S2) 4+ Good+ Extension (L3) 5 Normal Ankle/Foot Strength Ankle and Foot Manual Muscle Testing Right Dorsiflexion (L4) 5 Normal Plantarflexion (S1) 5 Normal Comments pain w/heel raises Left Dorsiflexion (L4) 5 Normal Plantarflexion (S1) 5 Normal Comments 20 heel raises B PT-OP-Q Treatments Start: 11/20/23 18:32 Freq: Status: Active Protocol: Document 01/06/24 09:49 SP (Rec: 01/06/24 10:35 SP [id number]) Gym Equipment Shuttle Recovery unilateral squat Details good slow pace/eccentric control and effort, painfree Resistance 50 (2 navy) Reps/Time x20 bilateral squat Resistance 75 (3 navy bands) Reps/Time x20 Sport Cord bue sport cord Exercise Details improved more challenge: mat: Comments 1. fwd/lateralstep ups: 6 step +blue foam- 10 reps each on blue mat 2. BOSU on floor: 5 reps each - good challenge 10%A contact elbow the CGA via gait belt * improved stability COG over LILLIAN stepping Therapeutic Exercises Supine Exercises stretch Supine Exercise Name chandana stretch Side right Reps/Minutes 30 SH Comments good anterior hip stretch with breath Standing Exercises stretching Standing Exercise Name gastroc, soleus, hip flexor Side bilateral Resistance feet on floor Equipment Used use stair rail support Reps/Minutes 30 each Comments good feedback posterior chain stretch- post balance activities sink stretch Standing Exercise Name added to HEP Side bilateral Equipment Used Trunk flexion, grasp rail, lean back pelvic tilt Reps/Minutes 2reps 30 each side Comments good feedback QL stretch, some tricep too lift Standing Exercise Name eccentric flexion Resistance 10# wt on dowel Equipment Used toward 8 step Reps/Minutes 10 reps x2 between balance activities, painfree Comments cued soft knee, scap set retraction, soft/slight flex knees sit to stands Standing Exercise Name 1. slow 2. fast Side bilateral Resistance 1. 10# DB at chest Equipment Used chair arms across chest Reps/Minutes 5 slow /c wt, 10 fast Comments good form and pacing review Therapeutic Activity Therapeutic Activity in/out car Name Next tx Comments also pelvic positioning seated in car Manual Therapy Treatment Soft Tissue Mobilization hip Body Location R piriformis, glut max, TFL, psoas Mobilization Type Rolling,Sustained Pressure, Other Intensity/Depth Moderate Body Position side&supine Comments manual, MWM w/hip IR/ER post hip. PT-OP-R Modalities Start: 12/20/23 11:42 Freq: Status: Active Protocol: Document 12/20/23 10:37 SP (Rec: 12/20/23 11:44 SP [id number]) Hot Pack/Cold Pack Treatment R hip Location R piriformis/glut Patient Position Sidelying Treatment Duration (minutes) 7 Patient Tolerance Good Comments reports glut cold/numb, less soreness. PT-OP-T Assessment and Plan Start: 11/20/23 18:32 Freq: Status: Active Protocol: Document 01/06/24 09:49 SP (Rec: 01/06/24 10:35 SP [id number]) Physical Therapy Assessment Goals balance Impairment FGA 22; SLS 15-16 sec B pain on R Short Term Goal (STG) Pt will improve FGA to at least 25/30 to show dec fall risk STG Duration 01/05/24 Assisted Goal (LTG) Pt will be abl eto do SLS for 20 sec B w/o pain to show improved balance LTG Duration 02/12 strength Short Term Goal (STG) Pt will be indep w/HEP STG Duration 01/05/24 [facility] Goal (LTG) Pt will score at least 3/5 on LPM and 5/5 BLE MMT in order to allow pt to do typical daily activities w/o inc pain LTG Duration 02/13/24 walking Short Term Goal (STG) Pt will report typical daily walking does not inc pain into leg /back. 01/06/24: progressing: walks getting better, not winded, no pain level surface, little pain into legs (calves & HS) on inclines 6/10. STG Duration 2/ progressing 01/06/24 Assisted Goal (LTG) Pt will be able to resume walks for over a mile w/o inc pain. LTG Duration 02/12 Assessment Summary Assessment Pt good glut, core, quad engagement with improvement in postural corrections during challenging uneven stepping. Good response feedback response to manual R hip. Discussed placement of towel roll behind low back seated in car for neutral more anterior tilt pelvic positioning, let us know how did afte 30 in car ride back home post PT. R hip no pain end tx after manual R hip not as tight. Physical Therapy Plan Frequency and Duration Frequency of Treatment 2x/Week Duration of treatment (weeks) 12 Plan of Care Start Date 11/21/23 Plan of Care End Date 02/13/24 Therapeutic Interventions Therapeutic Interventions Balance Training,Gait Training ,Home Exercise Program,Joint Mobilizations,Manual Therapy, Neuromuscular Re-education, Orthotic/Prosthetic Management ,Patient/Caregiver Education, Self-Care/Home Management,Soft Tissue Mobilization,Taping, Therapeutic Activities, Therapeutic Exercises, Vestibular Rehabilitation Modalities Cold Pack/Ice Massage,Electric Stimulation,Hot Packs Next Visit Focus/Plan Next Note Type Progress Note Next Visit Plan *PN next tx, 11th visit. Ask response to R hip after dynamic balance activities and manual end last tx. Next tx: assess sitting in car /use towel roll get in/out mechanics for pain relief. POC: cont to work on mechanics for lifting and carrying, balance and core/hip strength manual to pelvis and back to dec pain
--- NOTE | 2024-01-14 08:17 | PT.OTN ---
Current Diagnoses Unspecified retinal vascular occlusion (01/14/24) Cerebral infarction due to embolism of left middle cerebral artery (01/14/24) Lumbago with sciatica, right side (01/14/24) Difficulty in walking, not elsewhere classified (01/14/24) Strain of muscle, fascia and tendon of the posterior muscle group at thigh level, right thigh, sequela (01/14/24) Physical Therapy Treatment Note PT-OP-A Visit Information Start: 11/20/23 18:32 Freq: Status: Active Protocol: Document 01/14/24 07:35 [facility] (Rec: 01/14/24 08:17 [facility] [id number]) Out-Patient Physical Therapy Visit Information Visit Information Visit Type Progress Note Visit Note 12/11 Visit Start Time 07:35 Visit Number 11 Number of DOCUMENT SPECIALIST Visits 0 PT-OP-B Current Condition Start: 11/20/23 18:32 Freq: Status: Active Protocol: Document 11/21/23 08:40 [facility] (Rec: 11/21/23 09:47 [facility] [id number]) Current Condition History of Current Condition Current Complaints CVA 2 months ago; History of Current Condition Pt reprots artierial blood clot removed in L neck w/ resulting stroke during removal Sep 27, 2023. He had a pacemaker put in on Aug 06. Vascular surgeon said there were a lot of showers of strokes. They did a CT in recovery and transfered from [facility] to [facility] acute rehab. He was there for the weekend and was released morning. He has prior vision issues. 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 Cateract surgery scheduled for [facility]. He saw OT, PIER WORKER and vision therapy. OT OP dc after eval d/t no needed. He has been having pain that goes up post thigh to back. Even when going to the mailbox, he notices it. Whenever he gets out of the car, it is really annoying and he has stairs. Pain in leg started about January. 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 He has been limping since that started. At one point in the recovery room, he had vision changes and weakness in R arm. He is back to be able to use his R hand. Pt feels like he has had a slight balance issues since the stroke. Even when he goes from sit ot stand , he feels a little lightheaded. He says he can still do things, but does have to compensate d/t pacemaker. Pt reports L neck is still numb. Used to be a walker but hasn't as much since retired since 2000. He would occasionally go for a walk still w/his . Has history of L MCL sprain in 2019 . He backed up and hit a small wall of concrete blocks behind him and started to fall and his L leg got twisted. He did PT for 3 months, and its been doing well. He is noticing he is more winded going up the flight of stairs at home. Treatment Goals Patient/Caregiver Goals walk normally; be able to get up/down stairs w/o pain, be able to go for walks PT-OP-C Subjective Start: 11/20/23 18:32 Freq: Status: Active Protocol: Document 01/14/24 07:35 [facility] (Rec: 01/14/24 08:17 [facility] [id number]) OP-PT Subjective Patient Comments Patient Comments Pt reports he just walks up/ down his street which is an incline. Reports feels like PT helps slightly. PT-OP-D Balance Start: 11/20/23 18:32 Freq: Status: Active Protocol: Document 01/14/24 07:35 [facility] (Rec: 01/14/24 08:17 [facility] [id number]) Balance Tests Single Limb Standing Single Limb- Right 14 sec no pain Single Limb- Left 19 sec PT-OP-E Functional Tests Start: 11/20/23 18:32 Freq: Status: Active Protocol: Document 01/14/24 07:35 [facility] (Rec: 01/14/24 08:17 [facility] [id number]) Functional Tests Functional Gait Assessment Score 25/30 PT-OP-F Manual Assessment Start: 11/20/23 18:32 Freq: Status: Active Protocol: Document 11/21/23 08:40 [facility] (Rec: 11/21/23 09:47 [facility] [id number]) Manual Assessments Soft Tissue Assessment Soft Tissue Mobility Assessment R ES & QL tight and tender Joint Mobility Assessment Joint Mobility Assessment equal greater trochanters, R iliac crest higher PT-OP-G Mobility & Gait Start: 11/20/23 18:32 Freq: Status: Active Protocol: Document 11/21/23 08:40 [facility] (Rec: 11/21/23 09:47 [facility] [id number]) OP Gait Assessment Comments Gait Comments dec stance time RLE w/lat lean w/WB PT-OP-J Posture/Palpation/Skin Start: 11/20/23 18:32 Freq: Status: Active Protocol: Document 11/21/23 08:40 [facility] (Rec: 11/21/23 09:47 [facility] [id number]) Posture Evaluation [facility] Postural Classification System Ana Postural Classifications Posterior/Posterior Vertebral Compression Test 0 Lumbar Protective Mechanism Left AP 1 Lumbar Protective Mechanism Right AP 0 Lumbar Protective Mechanism Left PA 1 Lumbar Protective Mechanism Right PA 0 Comments 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, inc kyphosis, lat trunk lean L, fwd head PT-OP-K Range of Motion Start: 11/26/23 10:07 Freq: Status: Active Protocol: Document 11/26/23 09:47 [facility] (Rec: 11/26/23 10:10 [facility] [id number]) Lumbar Spine Range of Motion Lumbar Spine Active Percentage Flexion 50 Extension 50 Rotation Left 40 Rotation Right 40 Lateral Flexion Left 40 Lateral Flexion Right 50 Comments spine:30%, HS 70% of range-to mid [place]; pain in R spine w/SB B; pain w/L rot PT-OP-M Strength Start: 11/20/23 18:32 Freq: Status: Active Protocol: Document 01/14/24 07:35 [facility] (Rec: 01/14/24 08:17 [facility] [id number]) Hip Strength Hip Manual Muscle Testing Right Flexion (L2) 4+ Good+ Extension (S1) 4+ Good+ Abduction 4 Good Adduction 5 Normal External Rotation 5 Normal Internal Rotation 5 Normal Left Flexion (L2) 5 Normal Extension (S1) 5 Normal Abduction 4 Good Adduction 4 Good External Rotation 5 Normal Internal Rotation 5 Normal Knee Strength Knee Manual Muscle Testing Right Flexion (S2) 5 Normal Extension (L3) 5 Normal Left Flexion (S2) 5 Normal Extension (L3) 5 Normal Ankle/Foot Strength Ankle and Foot Manual Muscle Testing Right Dorsiflexion (L4) 5 Normal Plantarflexion (S1) 5 Normal Comments pain in R buttocks w/heel raises Left Dorsiflexion (L4) 5 Normal Plantarflexion (S1) 5 Normal Comments 20 heel raises B PT-OP-Q Treatments Start: 11/20/23 18:32 Freq: Status: Active Protocol: Document 01/14/24 07:35 [facility] (Rec: 01/14/24 08:17 [facility] [id number]) Therapeutic Exercises Supine Exercises bridge Side bilateral Reps/Minutes 10 sec x8 core Supine Exercise Name alt toe tap Side bilateral Reps/Minutes 15 ea Standing Exercises sidesteps Standing Exercise Name in mini squat Side bilateral Equipment Used L3 at thighs Reps/Minutes 20ft Other Exercises isometrics Other Exercise Name MMT & LPM all planes Side bilateral Manual Therapy Treatment Soft Tissue Mobilization back Body Location RQL &ES Mobilization Type Rolling,Sustained Pressure, Other Intensity/Depth Moderate Body Position Sidelying Comments w/pelvic up/down rot Joint Mobilizations sacrum Joint caudal glide w/sciatic n glide R s/l Neuro Re-Education Treatment Balance Activities FGA Comments 2530 SLS Comments trials B PT-OP-R Modalities Start: 12/20/23 11:42 Freq: Status: Active Protocol: Document 12/20/23 10:37 SP (Rec: 12/20/23 11:44 SP [id number]) Hot Pack/Cold Pack Treatment R hip Location R piriformis/glut Patient Position Sidelying Treatment Duration (minutes) 7 Patient Tolerance Good Comments reports glut cold/numb, less soreness. PT-OP-T Assessment and Plan Start: 11/20/23 18:32 Freq: Status: Active Protocol: Document 01/14/24 07:35 [facility] (Rec: 01/14/24 08:17 [facility] [id number]) Physical Therapy Assessment Goals balance Impairment FGA 22; SLS 15-16 sec B pain on R Short Term Goal (STG) Pt will improve FGA to at least 25/30 to show dec fall risk STG Duration achieved 01/14 Fdc Goal (LTG) Pt will be abl eto do SLS for 20 sec B w/o pain to show improved balance 01/14-no pain and impoved time on L LTG Duration 02/12 strength Short Term Goal (STG) Pt will be indep w/HEP STG Duration achieved advancing as needed Shredder Picker Goal (LTG) Pt will score at least 3/5 on LPM and 5/5 BLE MMT in order to allow pt to do typical daily activities w/o inc pain 01/14-impoved MMT; LTG Duration 02/13/24 walking Short Term Goal (STG) Pt will report typical daily walking does not inc pain into leg /back. 01/06/24: progressing: walks getting better, not winded, no pain level surface, little pain into legs (calves & HS) on inclines 05/11. 01/14-has started small walks w /incline decline; brings in firewood and up/down stairs and gets pain in buttocks. STG Duration 01/05 progressing 01/06/24 Fdc Goal (LTG) Pt will be able to resume walks for over a mile w/o inc pain. 01/14-has started small walks LTG Duration 02/12 Assessment Summary Assessment Pt is showing progress with therapy. He is showing impovements in strength and balance w/dec fall risk. He is also having less pain down theleg but cont to have limtiing pain into back and buttocks. COnt PT to work on strength, balance and dec pain . Physical Therapy Plan Frequency and Duration Frequency of Treatment 2x/Week Duration of treatment (weeks) 12 Plan of Care Start Date 11/21/23 Plan of Care End Date 02/13/24 Therapeutic Interventions Therapeutic Interventions Balance Training,Gait Training ,Home Exercise Program,Joint Mobilizations,Manual Therapy, Neuromuscular Re-education, Orthotic/Prosthetic Management ,Patient/Caregiver Education, Self-Care/Home Management,Soft Tissue Mobilization,Taping, Therapeutic Activities, Therapeutic Exercises, Vestibular Rehabilitation Modalities Cold Pack/Ice Massage,Electric Stimulation,Hot Packs Next Visit Focus/Plan Next Note Type Treatment Note Next Visit Plan wok on dynamic balance w/head turns and EC cont to work on dec pain manually core focus and hip abd focus
--- NOTE | 2024-01-21 08:16 | PT.OTN ---
Current Diagnoses Unspecified retinal vascular occlusion (01/21/24) Cerebral infarction due to embolism of left middle cerebral artery (01/21/24) Lumbago with sciatica, right side (01/21/24) Difficulty in walking, not elsewhere classified (01/21/24) Strain of muscle, fascia and tendon of the posterior muscle group at thigh level, right thigh, sequela (01/21/24) Physical Therapy Treatment Note PT-OP-A Visit Information Start: 11/20/23 18:32 Freq: Status: Active Protocol: Document 01/21/24 08:16 SP (Rec: 01/21/24 09:35 SP [id number]) Out-Patient Physical Therapy Visit Information Visit Information Visit Type Treatment Note Visit Note 01/11 Visit Start Time 07:35 Visit Stop Time 08:16 Visit Number 12 Number of TUFTING MACHINE OPERATOR SINGLE NEEDLE Visits 1 PT-OP-B Current Condition Start: 11/20/23 18:32 Freq: Status: Active Protocol: Document 11/21/23 08:40 [facility] (Rec: 11/21/23 09:47 [facility] [id number]) Current Condition History of Current Condition Current Complaints CVA 2 months ago; History of Current Condition Pt reprots artierial blood clot removed in L neck w/ resulting stroke during removal Sep 27, 2023. He had a pacemaker put in on Aug 06. Vascular surgeon said there were a lot of showers of strokes. They did a CT in recovery and trans[facility] was there for the weekend and was released morning. He has prior vision issues. 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 Cateract surgery scheduled for [facility]. He saw OT, SEISMIC INTERPRETER and vision therapy. OT OP dc after eval d/t no needed. He has been having pain that goes up post thigh to back. Even when going to the mailbox, he notices it. Whenever he gets out of the car, it is really annoying and he has stairs. Pain in leg started about January. 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 He has been limping since that started. At one point in the recovery room, he had vision changes and weakness in R arm. He is back to be able to use his R hand. Pt feels like he has had a slight balance issues since the stroke. Even when he goes from sit ot stand , he feels a little lightheaded. He says he can still do things, but does have to compensate d/t pacemaker. Pt reports L neck is still numb. Used to be a walker but hasn't as much since retired since 2000. He would occasionally go for a walk still w/his . Has history of L MCL sprain in 2019 . He backed up and hit a small wall of concrete blocks behind him and started to fall and his L leg got twisted. He did PT for 3 months, and its been doing well. He is noticing he is more winded going up the flight of stairs at home. Treatment Goals Patient/Caregiver Goals walk normally; be able to get up/down stairs w/o pain, be able to go for walks PT-OP-C Subjective Start: 11/20/23 18:32 Freq: Status: Active Protocol: Document 01/21/24 08:16 SP (Rec: 01/21/24 09:35 SP [id number]) OP-PT Subjective Patient Comments Patient Comments Pt reports overall doing better. PT-OP-D Balance Start: 11/20/23 18:32 Freq: Status: Active Protocol: Document 01/14/24 07:35 [facility] (Rec: 01/14/24 08:17 [facility] [id number]) Balance Tests Single Limb Standing Single Limb- Right 14 sec no pain Single Limb- Left 19 sec PT-OP-E Functional Tests Start: 11/20/23 18:32 Freq: Status: Active Protocol: Document 01/14/24 07:35 [facility] (Rec: 01/14/24 08:17 [facility] [id number]) Functional Tests Functional Gait Assessment Score 25/30 PT-OP-F Manual Assessment Start: 11/20/23 18:32 Freq: Status: Active Protocol: Document 11/21/23 08:40 [facility] (Rec: 11/21/23 09:47 [facility] [id number]) Manual Assessments Soft Tissue Assessment Soft Tissue Mobility Assessment R ES & QL tight and tender Joint Mobility Assessment Joint Mobility Assessment equal greater trochanters, R iliac crest higher PT-OP-G Mobility & Gait Start: 11/20/23 18:32 Freq: Status: Active Protocol: Document 11/21/23 08:40 [facility] (Rec: 11/21/23 09:47 [facility] [id number]) OP Gait Assessment Comments Gait Comments dec stance time RLE w/lat lean w/WB PT-OP-J Posture/Palpation/Skin Start: 11/20/23 18:32 Freq: Status: Active Protocol: Document 11/21/23 08:40 [facility] (Rec: 11/21/23 09:47 [facility] [id number]) Posture Evaluation Ana Postural Classification System Ana Postural Classifications Posterior/Posterior Vertebral Compression Test 0 Lumbar Protective Mechanism Left AP 1 Lumbar Protective Mechanism Right AP 0 Lumbar Protective Mechanism Left PA 1 Lumbar Protective Mechanism Right PA 0 Comments Posture Comments slight roller turner BLEs, inc kyphosis, lat trunk lean L, fwd head PT-OP-K Range of Motion Start: 11/26/23 10:07 Freq: Status: Active Protocol: Document 11/26/23 09:47 [facility] (Rec: 11/26/23 10:10 [facility] [id number]) Lumbar Spine Range of Motion Lumbar Spine Active Percentage Flexion 50 Extension 50 Rotation Left 40 Rotation Right 40 Lateral Flexion Left 40 Lateral Flexion Right 50 Comments spine:30%, HS 70% of range-to mid [place]; pain in R spine w/SB B; pain w/L rot PT-OP-M Strength Start: 11/20/23 18:32 Freq: Status: Active Protocol: Document 01/14/24 07:35 [facility] (Rec: 01/14/24 08:17 [facility] [id number]) Hip Strength Hip Manual Muscle Testing Right Flexion (L2) 4+ Good+ Extension (S1) 4+ Good+ Abduction 4 Good Adduction 5 Normal External Rotation 5 Normal Internal Rotation 5 Normal Left Flexion (L2) 5 Normal Extension (S1) 5 Normal Abduction 4 Good Adduction 4 Good External Rotation 5 Normal Internal Rotation 5 Normal Knee Strength Knee Manual Muscle Testing Right Flexion (S2) 5 Normal Extension (L3) 5 Normal Left Flexion (S2) 5 Normal Extension (L3) 5 Normal Ankle/Foot Strength Ankle and Foot Manual Muscle Testing Right Dorsiflexion (L4) 5 Normal Plantarflexion (S1) 5 Normal Comments pain in R buttocks w/heel raises Left Dorsiflexion (L4) 5 Normal Plantarflexion (S1) 5 Normal Comments 20 heel raises B PT-OP-Q Treatments Start: 11/20/23 18:32 Freq: Status: Active Protocol: Document 01/21/24 08:16 SP (Rec: 01/21/24 09:35 SP [id number]) Gym Equipment Shuttle Recovery unilateral squat Details good slow pace/eccentric control and effort, painfree Resistance 50 (2 navy) Reps/Time x20 bilateral squat Resistance 75 > 87# (3 navy bands) Reps/Time 2x15 Therapeutic Ball pelvic rocking Exercise Details f/b/lateral Ball Size/Color 75cm Body Position Sitting hands on hips Reps/Duration 3 min Comments improved with tactile feedback anterior knees no wt shift into LEs, rocking f/b/lateral on ischial tuberosity Therapeutic Exercises Supine Exercises bridge Side bilateral Reps/Minutes 10 sec x8 Comments Improved post pelvic rocking seated on ball core Supine Exercise Name BLE table top: alt toe tap Side bilateral Reps/Minutes 15 reps each Comments cued slow, tap closer to body, not reach out. improved core, little back Sitting Exercises stretches Sitting Exercise Name 1. figure 4 2. cross body piriformis Side bilateral Reps/Minutes 30 sec ea Comments states R lateral thigh pretty tight and can't hold longer Standing Exercises Star SL slider Standing Exercise Name 4 clock angles each LE Side bilateral Equipment Used slider under moving LE, front mirror self, contact PRN Reps/Minutes 2 sets 4 angles Comments Max cues for hip hinge reaching into ext & flex, knees behind /c forefoot stretching Standing Exercise Name gastroc, soleus, hip flexor Side bilateral Resistance feet on floor Equipment Used use stair rail support Reps/Minutes 30 each Comments good feedback posterior chain stretch post shuttle pres resisted walk Standing Exercise Name 1.monster walk fwd & backwards Side bilateral Equipment Used Lvl 3 at shins Reps/Minutes 10ft x2 laps sidesteps Standing Exercise Name in mini squat Side bilateral Equipment Used L3 at thighs Reps/Minutes 20ft Comments cued hip hinge fwd bow position PT-OP-R Modalities Start: 12/20/23 11:42 Freq: Status: Active Protocol: Document 12/20/23 10:37 SP (Rec: 12/20/23 11:44 SP [id number]) Hot Pack/Cold Pack Treatment R hip Location R piriformis/glut Patient Position Sidelying Treatment Duration (minutes) 7 Patient Tolerance Good Comments reports glut cold/numb, less soreness. PT-OP-T Assessment and Plan Start: 11/20/23 18:32 Freq: Status: Active Protocol: Document 01/21/24 08:16 SP (Rec: 01/21/24 09:35 SP [id number]) Physical Therapy Assessment Goals balance Impairment FGA 22; SLS 15-16 sec B pain on R Short Term Goal (STG) Pt will improve FGA to at least 25/30 to show dec fall risk STG Duration achieved 01/14 Dermatology Sales Representative Goal (LTG) Pt will be abl eto do SLS for 20 sec B w/o pain to show improved balance 01/14-no pain and impoved time on L LTG Duration 02/12 strength Short Term Goal (STG) Pt will be indep w/HEP STG Duration achieved advancing as needed Mcc Goal (LTG) Pt will score at least 3/5 on LPM and 5/5 BLE MMT in order to allow pt to do typical daily activities w/o inc pain 01/14-impoved MMT; LTG Duration 02/13/24 walking Short Term Goal (STG) Pt will report typical daily walking does not inc pain into leg /back. 01/06/24: progressing: walks getting better, not winded, no pain level surface, little pain into legs (calves & HS) on inclines 05/11. 01/14-has started small walks w /incline decline; brings in firewood and up/down stairs and gets pain in buttocks. STG Duration 01/05 progressing 01/06/24 Mcc Goal (LTG) Pt will be able to resume walks for over a mile w/o inc pain. 01/14-has started small walks LTG Duration 02/12 Assessment Summary Assessment Pt challenged with bridging today, lack of TA engagement and coordination, improved small lift with decreased to no neck compensations post sitting pelvic rocking on tball. Pt improved SLS with stability progression into star sliders with no UE support, cues for hip hinge and back straight with no reports of pain. Incorporated and provided ed for use of stretching to allow increased jt mobilitiy importance with verbalized has been trying to incorporate. Physical Therapy Plan Frequency and Duration Frequency of Treatment 2x/Week Duration of treatment (weeks) 12 Plan of Care Start Date 11/21/23 Plan of Care End Date 02/13/24 Therapeutic Interventions Therapeutic Interventions Balance Training,Gait Training ,Home Exercise Program,Joint Mobilizations,Manual Therapy, Neuromuscular Re-education, Orthotic/Prosthetic Management ,Patient/Caregiver Education, Self-Care/Home Management,Soft Tissue Mobilization,Taping, Therapeutic Activities, Therapeutic Exercises, Vestibular Rehabilitation Modalities Cold Pack/Ice Massage,Electric Stimulation,Hot Packs Next Visit Focus/Plan Next Note Type Treatment Note Next Visit Plan wok on dynamic balance w/head turns and EC cont to work on dec pain manually core focus and hip abd focus
--- NOTE | 2024-01-23 09:48 | PT.OTN ---
Current Diagnoses Unspecified retinal vascular occlusion (01/23/24) Cerebral infarction due to embolism of left middle cerebral artery (01/23/24) Lumbago with sciatica, right side (01/23/24) Difficulty in walking, not elsewhere classified (01/23/24) Strain of muscle, fascia and tendon of the posterior muscle group at thigh level, right thigh, sequela (01/23/24) Physical Therapy Treatment Note PT-OP-A Visit Information Start: 11/20/23 18:32 Freq: Status: Active Protocol: Document 01/23/24 09:05 [facility] (Rec: 01/23/24 09:48 [facility] [id number]) Out-Patient Physical Therapy Visit Information Visit Information Visit Type Treatment Note Visit Note 02/08 Visit Start Time 09:07 Visit Stop Time 09:45 Visit Number 13 Number of WINDOW SASH INSTALLER Visits 0 PT-OP-B Current Condition Start: 11/20/23 18:32 Freq: Status: Active Protocol: Document 11/21/23 08:40 [facility] (Rec: 11/21/23 09:47 [facility] [id number]) Current Condition History of Current Condition Current Complaints CVA 2 months ago; History of Current Condition Pt reprots artierial blood clot removed in L neck w/ resulting stroke during removal Sep 27, 2023. He had a pacemaker put in on Aug 06. Vascular surgeon said there were a lot of showers of strokes. They did a CT in recovery and transfered [facility] He was there for the weekend and was released morning. He has prior vision issues. 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 Cateract surgery scheduled for [facility]. 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 OT OP dc after eval d/t no needed. He has been having pain that goes up post thigh to back. Even when going to the mailbox, he notices it. Whenever he gets out of the car, it is really annoying and he has stairs. Pain in leg started about January. 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 He has been limping since that started. At one point in the recovery room, he had vision changes and weakness in R arm. He is back to be able to use his R hand. Pt feels like he has had a slight balance issues since the stroke. Even when he goes from sit ot stand , he feels a little lightheaded. He says he can still do things, but does have to compensate d/t pacemaker. Pt reports L neck is still numb. Used to be a walker but hasn't as much since retired since 2000. He would occasionally go for a walk still w/his . Has history of L MCL sprain in 2019 . He backed up and hit a small wall of concrete blocks behind him and started to fall and his L leg got twisted. He did PT for 3 months, and its been doing well. He is noticing he is more winded going up the flight of stairs at home. Treatment Goals Patient/Caregiver Goals walk normally; be able to get up/down stairs w/o pain, be able to go for walks PT-OP-C Subjective Start: 11/20/23 18:32 Freq: Status: Active Protocol: Document 01/23/24 09:05 [facility] (Rec: 01/23/24 09:48 [facility] [id number]) OP-PT Subjective Patient Comments Patient Comments Pt reports pain on/off PT-OP-D Balance Start: 11/20/23 18:32 Freq: Status: Active Protocol: Document 01/14/24 07:35 [facility] (Rec: 01/14/24 08:17 [id number]) Balance Tests Single Limb Standing Single Limb- Right 14 sec no pain Single Limb- Left 19 sec PT-OP-E Functional Tests Start: 11/20/23 18:32 Freq: Status: Active Protocol: Document 01/14/24 07:35 [facility] (Rec: 01/14/24 08:17 [facility] [id number]) Functional Tests Functional Gait Assessment Score 25/30 PT-OP-F Manual Assessment Start: 11/20/23 18:32 Freq: Status: Active Protocol: Document 11/21/23 08:40 [facility] (Rec: 11/21/23 09:47 [facility] [id number]) Manual Assessments Soft Tissue Assessment Soft Tissue Mobility Assessment R ES & QL tight and tender Joint Mobility Assessment Joint Mobility Assessment equal greater trochanters, R iliac crest higher PT-OP-G Mobility & Gait Start: 11/20/23 18:32 Freq: Status: Active Protocol: Document 11/21/23 08:40 [facility] (Rec: 11/21/23 09:47 [facility] [id number]) OP Gait Assessment Comments Gait Comments dec stance time RLE w/lat lean w/WB PT-OP-J Posture/Palpation/Skin Start: 11/20/23 18:32 Freq: Status: Active Protocol: Document 11/21/23 08:40 [facility] (Rec: 11/21/23 09:47 [facility] [id number]) Posture Evaluation Ana Postural Classification System Ana Postural Classifications Posterior/Posterior Vertebral Compression Test 0 Lumbar Protective Mechanism Left AP 1 Lumbar Protective Mechanism Right AP 0 Lumbar Protective Mechanism Left PA 1 Lumbar Protective Mechanism Right PA 0 Comments Posture Comments slight returning officer BLEs, inc kyphosis, lat trunk lean L, fwd head PT-OP-K Range of Motion Start: 11/26/23 10:07 Freq: Status: Active Protocol: Document 11/26/23 09:47 [facility] (Rec: 11/26/23 10:10 [facility] [id number]) Lumbar Spine Range of Motion Lumbar Spine Active Percentage Flexion 50 Extension 50 Rotation Left 40 Rotation Right 40 Lateral Flexion Left 40 Lateral Flexion Right 50 Comments spine:30%, HS 70% of range-to mid [place]; pain in R spine w/SB B; pain w/L rot PT-OP-M Strength Start: 11/20/23 18:32 Freq: Status: Active Protocol: Document 01/14/24 07:35 [facility] (Rec: 01/14/24 08:17 [facility] [id number]) Hip Strength Hip Manual Muscle Testing Right Flexion (L2) 4+ Good+ Extension (S1) 4+ Good+ Abduction 4 Good Adduction 5 Normal External Rotation 5 Normal Internal Rotation 5 Normal Left Flexion (L2) 5 Normal Extension (S1) 5 Normal Abduction 4 Good Adduction 4 Good External Rotation 5 Normal Internal Rotation 5 Normal Knee Strength Knee Manual Muscle Testing Right Flexion (S2) 5 Normal Extension (L3) 5 Normal Left Flexion (S2) 5 Normal Extension (L3) 5 Normal Ankle/Foot Strength Ankle and Foot Manual Muscle Testing Right Dorsiflexion (L4) 5 Normal Plantarflexion (S1) 5 Normal Comments pain in R buttocks w/heel raises Left Dorsiflexion (L4) 5 Normal Plantarflexion (S1) 5 Normal Comments 20 heel raises B PT-OP-Q Treatments Start: 11/20/23 18:32 Freq: Status: Active Protocol: Document 01/23/24 09:05 [facility] (Rec: 01/23/24 09:48 [facility] [id number]) Therapeutic Exercises Supine Exercises isometric Supine Exercise Name BLE flex isometric DL Side bilateral Reps/Minutes 30 sec bridge Side bilateral Reps/Minutes 5sec x15 Comments cues for core engagement and dlow progression up core Supine Exercise Name BLE table top: alt toe tap Side bilateral Reps/Minutes 15 reps each Comments cued slow, tap closer to body, not reach out. improved core, little back Standing Exercises paloff press Side bilateral Equipment Used L3 2 bands Reps/Minutes 10 step up Standing Exercise Name w/alt march Side bilateral Equipment Used 8 in Reps/Minutes 12 ea sidesteps Standing Exercise Name in mini squat Side bilateral Equipment Used L3 at thighs Reps/Minutes 20ftx2 Comments cued hip hinge fwd bow position Manual Therapy Treatment Joint Mobilizations hip Comments free the ball ER L FM; B inf FM Neuro Re-Education Treatment Balance Activities head turns Details roberts walk Comments 1. horizontal head turns 2x50ft 2. vertical head turns 2x50ft foam Details head turns B & EC trials Surface blue foam Comments WBOS, NBOS, Staggered stance B Self-Care/Home Management Treatment Education Other Education 3 min: edu on chair height for his height and how to set up chair and to consider cushion if not high enough. PT-OP-R Modalities Start: 12/20/23 11:42 Freq: Status: Active Protocol: Document 12/20/23 10:37 SP (Rec: 12/20/23 11:44 SP [id number]) Hot Pack/Cold Pack Treatment R hip Location R piriformis/glut Patient Position Sidelying Treatment Duration (minutes) 7 Patient Tolerance Good Comments reports glut cold/numb, less soreness. PT-OP-T Assessment and Plan Start: 11/20/23 18:32 Freq: Status: Active Protocol: Document 01/23/24 09:05 [facility] (Rec: 01/23/24 09:48 [facility] [id number]) Physical Therapy Assessment Goals balance Impairment FGA 22; SLS 15-16 sec B pain on R Short Term Goal (STG) Pt will improve FGA to at least 25/30 to show dec fall risk STG Duration achieved 213 City Editor Goal (LTG) Pt will be abl eto do SLS for 20 sec B w/o pain to show improved balance 2/13-no pain and impoved time on L LTG Duration 02/12 strength Short Term Goal (STG) Pt will be indep w/HEP STG Duration achieved advancing as needed City Editor Goal (LTG) Pt will score at least 3/5 on LPM and 5/5 BLE MMT in order to allow pt to do typical daily activities w/o inc pain 01/14-impoved MMT; LTG Duration 02/13/24 walking Short Term Goal (STG) Pt will report typical daily walking does not inc pain into leg /back. 01/06/24: progressing: walks getting better, not winded, no pain level surface, little pain into legs (calves & HS) on inclines 05/11. 01/14-has started small walks w /incline decline; brings in firewood and up/down stairs and gets pain in buttocks. STG Duration 01/05 progressing 01/06/24 Long-Term Goal (LTG) Pt will be able to resume walks for over a mile w/o inc pain. 01/14-has started small walks LTG Duration 02/12 Assessment Summary Assessment Pt challenged by EC activties today most. He did well with exercises w/cues for core and back position. Edu given for making sure hips are higher than knees in work chair. Much improved hip mobility B after manual treatmetn whcih would allow greater ease in sitting w/less back pressure. Physical Therapy Plan Next Visit Focus/Plan Next Note Type Treatment Note Next Visit Plan wok on dynamic balance w/head turns and EC cont to work on dec pain manually core focus and hip abd focus
--- NOTE | 2024-01-27 12:17 | PT.OTN ---
Current Diagnoses Unspecified retinal vascular occlusion (01/27/24) Cerebral infarction due to embolism of left middle cerebral artery (01/27/24) Lumbago with sciatica, right side (01/27/24) Difficulty in walking, not elsewhere classified (01/27/24) Strain of muscle, fascia and tendon of the posterior muscle group at thigh level, right thigh, sequela (01/27/24) Physical Therapy Treatment Note PT-OP-A Visit Information Start: 11/20/23 18:32 Freq: Status: Active Protocol: Document 01/27/24 12:13 [facility] (Rec: 01/27/24 12:17 [facility] [id number]) Out-Patient Physical Therapy Visit Information Visit Information Visit Type Treatment Note Visit Note 03/11 Visit Start Time 09:07 Visit Stop Time 09:45 Visit Number 14 Number of CONCRETE ANALYST Visits 0 PT-OP-B Current Condition Start: 11/20/23 18:32 Freq: Status: Active Protocol: Document 11/21/23 08:40 [facility] (Rec: 11/21/23 09:47 [facility] [id number]) Current Condition History of Current Condition Current Complaints CVA 2 months ago; History of Current Condition Pt reprots artierial blood clot removed in L neck w/ resulting stroke during removal Sep 27, 2023. He had a pacemaker put in on Aug 06. Vascular surgeon said there were a lot of showers of strokes. They did a CT in recovery and transfered from [facility] to [facility] [place] [facility] He was there for the weekend and was released morning. He has prior vision issues. 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 Cateract surgery scheduled for [facility]. He saw OT, [employer] and vision therapy. OT OP dc after eval d/t no needed. He has been having pain that goes up post thigh to back. Even when going to the mailbox, he notices it. Whenever he gets out of the car, it is really annoying and he has stairs. Pain in leg started about January. 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 He has been limping since that started. At one point in the recovery room, he had vision changes and weakness in R arm. He is back to be able to use his R hand. Pt feels like he has had a slight balance issues since the stroke. Even when he goes from sit ot stand , he feels a little lightheaded. He says he can still do things, but does have to compensate d/t pacemaker. Pt reports L neck is still numb. Used to be a walker but hasn't as much since retired since 2000. He would occasionally go for a walk still w/his . Has history of L MCL sprain in 2019 . He backed up and hit a small wall of concrete blocks behind him and started to fall and his L leg got twisted. He did PT for 3 months, and its been doing well. He is noticing he is more winded going up the flight of stairs at home. Treatment Goals Patient/Caregiver Goals walk normally; be able to get up/down stairs w/o pain, be able to go for walks PT-OP-C Subjective Start: 11/20/23 18:32 Freq: Status: Active Protocol: Document 01/27/24 12:13 [facility] (Rec: [facility]27/24 12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 hips were stiff during drive PT-OP-D Balance Start: 11/20/23 18:32 Freq: Status: Active Protocol: Document 01/14/24 07:35 [facility] (Rec: 01/14/24 08:[id number] Balance Tests Single Limb Standing Single Limb- Right 14 sec no pain Single Limb- Left 19 sec PT-OP-E Functional Tests Start: 11/20/23 18:32 Freq: Status: Active Protocol: Document 01/14/24 07:35 [facility] (Rec: 01/14/24 08:17 [facility] [id number]) Functional Tests Functional Gait Assessment Score 25/30 PT-OP-F Manual Assessment Start: 11/20/23 18:32 Freq: Status: Active Protocol: Document 11/21/23 08:40 [facility] (Rec: 11/21/23 09:47 [id number] Manual Assessments Soft Tissue Assessment Soft Tissue Mobility Assessment R ES & QL tight and tender Joint Mobility Assessment Joint Mobility Assessment equal greater trochanters, R iliac crest higher PT-OP-G Mobility & Gait Start: 11/20/23 18:32 Freq: Status: Active Protocol: Document 11/21/23 08:40 [facility] (Rec: 11/21/23 09:47 [facility] [id number]) OP Gait Assessment Comments Gait Comments dec stance time RLE w/lat lean w/WB PT-OP-J Posture/Palpation/Skin Start: 11/20/23 18:32 Freq: Status: Active Protocol: Document 11/21/23 08:40 [facility] (Rec: 11/21/23 09:47 [facility] [id number]) Posture Evaluation [facility] Postural Classification System [facility] Postural Classifications Posterior/Posterior Vertebral Compression Test 0 Lumbar Protective Mechanism Left AP 1 Lumbar Protective Mechanism Right AP 0 Lumbar Protective Mechanism Left PA 1 Lumbar Protective Mechanism Right PA 0 Comments 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, inc kyphosis, lat trunk lean L, fwd head PT-OP-K Range of Motion Start: 11/26/23 10:07 Freq: Status: Active Protocol: Document 11/26/23 09:47 [facility] (Rec: 11/26/23 10:10 [facility] [id number]) Lumbar Spine Range of Motion Lumbar Spine Active Percentage Flexion 50 Extension 50 Rotation Left 40 Rotation Right 40 Lateral Flexion Left 40 Lateral Flexion Right 50 Comments spine:30%, HS 70% of range-to mid [place]; pain in R spine w/SB B; pain w/L rot PT-OP-M Strength Start: 11/20/23 18:32 Freq: Status: Active Protocol: Document 01/14/24 07:35 [facility] (Rec: 01/14/24 08:17 [facility] [id number]) Hip Strength Hip Manual Muscle Testing Right Flexion (L2) 4+ Good+ Extension (S1) 4+ Good+ Abduction 4 Good Adduction 5 Normal External Rotation 5 Normal Internal Rotation 5 Normal Left Flexion (L2) 5 Normal Extension (S1) 5 Normal Abduction 4 Good Adduction 4 Good External Rotation 5 Normal Internal Rotation 5 Normal Knee Strength Knee Manual Muscle Testing Right Flexion (S2) 5 Normal Extension (L3) 5 Normal Left Flexion (S2) 5 Normal Extension (L3) 5 Normal Ankle/Foot Strength Ankle and Foot Manual Muscle Testing Right Dorsiflexion (L4) 5 Normal Plantarflexion (S1) 5 Normal Comments pain in R buttocks w/heel raises Left Dorsiflexion (L4) 5 Normal Plantarflexion (S1) 5 Normal Comments 20 heel raises B PT-OP-Q Treatments Start: 11/20/23 18:32 Freq: Status: Active Protocol: Document 01/27/24 12:13 [facility] (Rec: 01/27/24 12:17 [facility] [id number]) Therapeutic Exercises Supine Exercises isometric Supine Exercise Name BLE flex isometric DL Side bilateral Reps/Minutes 30 sec bridge Side bilateral Reps/Minutes 10 sec x10 Comments Improved post pelvic rocking seated on ball core Supine Exercise Name BLE table top: alt toe tap Side bilateral Reps/Minutes 15 reps each Comments cued slow, tap closer to body, not reach out. improved core, little back Standing Exercises step up Standing Exercise Name w/alt march Side bilateral Equipment Used 8 in Reps/Minutes 12 ea sidesteps Standing Exercise Name in mini squat Side bilateral Equipment Used L3 at thighs Reps/Minutes 20ftx2 Comments cued hip hinge fwd bow position Manual Therapy Treatment Soft Tissue Mobilization hip Body Location R ITB Comments w/IR Joint Mobilizations hip Comments B inf FM; R IR free the ball FM Neuro Re-Education Treatment Balance Activities EC Comments fwd/back walk 2x50ft ea head turns Details roberts walk Comments 1. horizontal head turns 2x50ft 2. vertical head turns 2x50ft foam Details head turns B & EC trials Surface blue foam Comments WBOS, NBOS, Staggered stance B SLS Comments trials B PT-OP-R Modalities Start: 12/20/23 11:42 Freq: Status: Active Protocol: Document 12/20/23 10:37 [facility] (Rec: 12/20/23 11:44 [facility] [id number]) Hot Pack/Cold Pack Treatment R hip Location R piriformis/glut Patient Position Sidelying Treatment Duration (minutes) 7 Patient Tolerance Good Comments reports glut cold/numb, less soreness. PT-OP-T Assessment and Plan Start: 11/20/23 18:32 Freq: Status: Active Protocol: Document 01/27/24 12:13 [facility] (Rec: 01/27/24 12:17 [facility] [id number]) Physical Therapy Assessment Goals balance Impairment FGA 22; SLS 15-16 sec B pain on R Short Term Goal (STG) Pt will improve FGA to at least 25/30 to show dec fall risk STG Duration achieved 01/14 Prison Goal (LTG) Pt will be abl eto do SLS for 20 sec B w/o pain to show improved balance 01/14-no pain and impoved time on L LTG Duration 02/12 strength Short Term Goal (STG) Pt will be indep w/HEP STG Duration achieved advancing as needed Prison Goal (LTG) Pt will score at least 3/5 on LPM and 5/5 BLE MMT in order to allow pt to do typical daily activities w/o inc pain 01/14-impoved MMT; LTG Duration 02/13/24 walking Short Term Goal (STG) Pt will report typical daily walking does not inc pain into leg /back. 01/06/24: progressing: walks getting better, not winded, no pain level surface, little pain into legs (calves & HS) on inclines 05/11. 01/14-has started small walks w /incline decline; brings in firewood and up/down stairs and gets pain in buttocks. STG Duration 01/05 progressing 01/06/24 Prison Goal (LTG) Pt will be able to resume walks for over a mile w/o inc pain. 01/14-has started small walks LTG Duration 02/12 Assessment Summary Assessment Pt did better w/balance tasks but was still challenged by EC tasks especially walking and NBOS. Improved perofrmance w/ exercises w/min cues. no pain noted during session. Improved B hip flex w/manual Physical Therapy Plan Frequency and Duration Frequency of Treatment 2x/Week Duration of treatment (weeks) 12 Plan of Care Start Date 11/21/23 Plan of Care End Date 02/13/24 Next Visit Focus/Plan Next Note Type Discharge Summary Next Visit Plan wok on dynamic balance w/head turns and EC cont to work on dec pain manually core focus and hip abd focus
--- NOTE | 2024-01-29 09:51 | PT.OTN ---
Current Diagnoses Unspecified retinal vascular occlusion (01/29/24) Cerebral infarction due to embolism of left middle cerebral artery (01/29/24) Lumbago with sciatica, right side (01/29/24) Difficulty in walking, not elsewhere classified (01/29/24) Strain of muscle, fascia and tendon of the posterior muscle group at thigh level, right thigh, sequela (01/29/24) Physical Therapy Treatment Note PT-OP-A Visit Information Start: 11/20/23 18:32 Freq: Status: Active Protocol: Document 01/29/24 09:10 [facility] (Rec: 01/29/24 09:51 [facility] [id number]) Out-Patient Physical Therapy Visit Information Visit Information Visit Type Discharge Summary Visit Start Time 09:07 Visit Stop Time 09:45 Visit Number 15 Number of MUSSEL OPENER Visits 0 PT-OP-B Current Condition Start: 11/20/23 18:32 Freq: Status: Active Protocol: Document 11/21/23 08:40 [facility] (Rec: 11/21/23 09:47 [facility] [id number]) Current Condition History of Current Condition Current Complaints CVA 2 months ago; History of Current Condition Pt reprots artierial blood clot removed in L neck w/ resulting stroke during removal Sep 27, 2023. He had a pacemaker put in on Aug 06. Vascular surgeon said there were a lot of showers of strokes. They did a CT in recovery and transfered from [facility] to [facility] acute rehab. He was there for the weekend and was released morning. He has prior vision issues. 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 Cateract surgery scheduled for [facility] [place]. He saw OT, [employer] and vision therapy. OT OP dc after eval d/t no needed. He has been having pain that goes up post thigh to back. Even when going to the mailbox, he notices it. Whenever he gets out of the car, it is really annoying and he has stairs. Pain in leg started about January. 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 He has been limping since that started. At one point in the recovery room, he had vision changes and weakness in R arm. He is back to be able to use his R hand. Pt feels like he has had a slight balance issues since the stroke. Even when he goes from sit ot stand , he feels a little lightheaded. He says he can still do things, but does have to compensate d/t pacemaker. Pt reports L neck is still numb. Used to be a walker but hasn't as much since retired since 2000. He would occasionally go for a walk still w/his . Has history of L MCL sprain in 2019 . He backed up and hit a small wall of concrete blocks behind him and started to fall and his L leg got twisted. He did PT for 3 months, and its been doing well. He is noticing he is more winded going up the flight of stairs at home. Treatment Goals Patient/Caregiver Goals walk normally; be able to get up/down stairs w/o pain, be able to go for walks PT-OP-C Subjective Start: 11/20/23 18:32 Freq: Status: Active Protocol: Document 01/29/24 09:10 [facility] (Rec: 01/29/24 09:51 [id number]-PT Subjective Patient Comments Patient Comments Pt has not walked recently d/t being out of town and weather PT-OP-D Balance Start: 11/20/23 18:32 Freq: Status: Active Protocol: Document 01/29/24 09:10 [facility] (Rec: 01/29/24 09:51 [id number] Balance Tests Single Limb Standing Single Limb- Right 30 sec Single Limb- Left 24 sec PT-OP-E Functional Tests Start: 11/20/23 18:32 Freq: Status: Active Protocol: Document 01/14/24 07:35 [facility] (Rec: 01/14/24 08:17 [facility] [id number]) Functional Tests Functional Gait Assessment Score 25/30 PT-OP-F Manual Assessment Start: 11/20/23 18:32 Freq: Status: Active Protocol: Document 11/21/23 08:40 [facility] (Rec: 11/21/23 09:47 [facility] [id number]) Manual Assessments Soft Tissue Assessment Soft Tissue Mobility Assessment R ES & QL tight and tender Joint Mobility Assessment Joint Mobility Assessment equal greater trochanters, R iliac crest higher PT-OP-G Mobility & Gait Start: 11/20/23 18:32 Freq: Status: Active Protocol: Document 11/21/23 08:40 [facility] (Rec: 11/21/23 09:47 [facility] [id number]) OP Gait Assessment Comments Gait Comments dec stance time RLE w/lat lean w/WB PT-OP-J Posture/Palpation/Skin Start: 11/20/23 18:32 Freq: Status: Active Protocol: Document 01/29/24 09:10 [facility] (Rec: 01/29/24 09:51 [facility] [id number]) Posture Evaluation [facility] Postural Classification System Lumbar Protective Mechanism Left AP 3 Lumbar Protective Mechanism Right AP 3 Lumbar Protective Mechanism Left PA 3 Lumbar Protective Mechanism Right PA 3 PT-OP-K Range of Motion Start: 11/26/23 10:07 Freq: Status: Active Protocol: Document 11/26/23 09:47 [facility] (Rec: 11/26/23 10:10 [facility] [id number]) Lumbar Spine Range of Motion Lumbar Spine Active Percentage Flexion 50 Extension 50 Rotation Left 40 Rotation Right 40 Lateral Flexion Left 40 Lateral Flexion Right 50 Comments spine:30%, HS 70% of range-to mid [place]; pain in R spine w/SB B; pain w/L rot PT-OP-M Strength Start: 11/20/23 18:32 Freq: Status: Active Protocol: Document 01/29/24 09:10 [facility] (Rec: 01/29/24 09:51 [facility] [id number]) Hip Strength Hip Manual Muscle Testing Right Flexion (L2) 5 Normal Extension (S1) 5 Normal Abduction 4+ Good+ Adduction 5 Normal External Rotation 5 Normal Internal Rotation 5 Normal Left Flexion (L2) 5 Normal Extension (S1) 5 Normal Abduction 5 Normal Adduction 5 Normal External Rotation 5 Normal Internal Rotation 5 Normal Knee Strength Knee Manual Muscle Testing Right Flexion (S2) 5 Normal Extension (L3) 5 Normal Left Flexion (S2) 5 Normal Extension (L3) 5 Normal Ankle/Foot Strength Ankle and Foot Manual Muscle Testing Right Dorsiflexion (L4) 5 Normal Plantarflexion (S1) 5 Normal Left Dorsiflexion (L4) 5 Normal Plantarflexion (S1) 5 Normal Comments 20 heel raises B PT-OP-Q Treatments Start: 11/20/23 18:32 Freq: Status: Active Protocol: Document 01/29/24 09:10 [facility] (Rec: 01/29/24 09:51 [facility] [id number]) Therapeutic Exercises Supine Exercises isometric Supine Exercise Name BLE flex isometric DL Side bilateral Reps/Minutes 30 sec bridge Side bilateral Reps/Minutes 10 sec x10 Comments Improved post pelvic rocking seated on ball core Supine Exercise Name BLE table top: alt toe tap Side bilateral Reps/Minutes 15 reps each Comments cued slow, tap closer to body, not reach out. improved core, little back stretch Supine Exercise Name piriformis Side bilateral Reps/Minutes 30 SH sciatic n glide Supine Exercise Name active knee ext w/DF Side bilateral Reps/Minutes 10 Comments good slow pacing Standing Exercises sidesteps Standing Exercise Name in mini squat Side bilateral Equipment Used L3 at thighs Reps/Minutes 20ftx2 Comments cued hip hinge fwd bow position sit to stands Standing Exercise Name taps Side bilateral Resistance 1. 10# DB at chest Equipment Used chair arms across chest Reps/Minutes 10 Comments good form and pacing review Other Exercises isometrics Other Exercise Name MMT & LPM all planes Side bilateral Manual Therapy Treatment Soft Tissue Mobilization hip Body Location R ITB and lat glutes Mobilization Type Rolling Intensity/Depth Moderate Comments w/IR Neuro Re-Education Treatment Balance Activities EC Comments NBOS SLS Comments trials B PT-OP-R Modalities Start: 12/20/23 11:42 Freq: Status: Active Protocol: Document 12/20/23 10:37 [facility] (Rec: 12/20/23 11:44 [facility] [id number]) Hot Pack/Cold Pack Treatment R hip Location R piriformis/glut Patient Position Sidelying Treatment Duration (minutes) 7 Patient Tolerance Good Comments reports glut cold/numb, less soreness. PT-OP-T Assessment and Plan Start: 11/20/23 18:32 Freq: Status: Active Protocol: Document 01/29/24 09:10 [facility] (Rec: 01/29/24 09:51 [facility] [id number]) Physical Therapy Assessment Goals balance Impairment FGA 22; SLS 15-16 sec B pain on R Short Term Goal (STG) Pt will improve FGA to at least 25/30 to show dec fall risk STG Duration achieved 01/14 [employer] Machine Operator Goal (LTG) Pt will be abl eto do SLS for 20 sec B w/o pain to show improved balance 01/14-no pain and impoved time on L LTG Duration achieved 01/29 strength Short Term Goal (STG) Pt will be indep w/HEP STG Duration achieved advancing as needed [employer] Machine Operator Goal (LTG) Pt will score at least 3/5 on LPM and 5/5 BLE MMT in order to allow pt to do typical daily activities w/o inc pain 01/14-impoved MMT; LTG Duration much improved walking Short Term Goal (STG) Pt will report typical daily walking does not inc pain into leg /back. 01/06/24: progressing: walks getting better, not winded, no pain level surface, little pain into legs (calves & HS) on inclines 05/11. 01/14-has started small walks w /incline decline; brings in firewood and up/down stairs and gets pain in buttocks. STG Duration 01/29-small walks only d/t weather and trip [facility] Goal (LTG) Pt will be able to resume walks for over a mile w/o inc pain. 01/14-has started small walks LTG Duration 01/29-small walks only d/t weather and trip Assessment Summary Assessment Pt has made excellent progress w/PT w/improved strength of LEs and core. Dec instances of LE pain and pain intermittent for pt. He encouaged to keep up HEP and given info for sports med doctors to contact as neede.d HE has not walked but this has been d/t weather and busy with other activities . DC to HEP at this time. Physical Therapy Plan Discharge Physical Therapy Discharge Reasons Goals Met
== END 2024-02-03 10:17 | disposition home or self-care (01) ==
LOC: PHYS 09:00
PROVIDERS: Family Provider Family Medicine; PCP Family Medicine; Referring Provider Family Medicine; Visit Provider Family Medicine
DX: S76.311S Strain of muscle, fascia and tendon of the posterior muscle group at thigh level, right thigh, sequela (principal); H34.9 Unspecified retinal vascular occlusion; I63.412 Cerebral infarction due to embolism of left middle cerebral artery; M54.41 Lumbago with sciatica, right side; R26.2 Difficulty in walking, not elsewhere classified
CPT/HCPCS: 97110; 97112; 97140; 97162; 97535

== ENCOUNTER → 2024-04-15 13:27 | Outpatient (CLI) | payer MEDICARE, OTHER, SELFPAY ==
--- NOTE | 2024-04-15 13:28 | DI.RAD.S_ITS ---
PROCEDURE: XR SACROILIAC JOINT MIN 3V INDICATIONS: SI JOINT PAIN TECHNIQUE: 3 views of the sacroiliac joints were acquired. COMPARISON: None. FINDINGS: Bones: No bony erosions or ankylosis. No suspicious bony lesions. No fractures. Soft tissues: Overlying bowel gas pattern is normal. No suspicious soft tissue densities. IMPRESSION: No acute fracture or radiographic evidence of sacroiliitis. Dictated by: Lori Marie M.D. on 04/15/2024 at 15:11 Approved by: Lori Marie M.D. on 04/15/2024 at 15:12
--- NOTE | 2024-04-15 13:28 | DI.RAD.S_ITS ---
PROCEDURE: XR LUMBAR SPINE MIN 4V INDICATIONS: BACK PAIN TECHNIQUE: 5 views of the lumbar spine were acquired, including bilateral oblique views. COMPARISON: None. FINDINGS: Bones: 5 nonrib-bearing vertebrae are present. Levoconvex curvature of the lumbar spine centered at L4. Moderate to severe multilevel degenerative changes with osteophytosis, disc height loss and facet arthropathy. Multilevel osseous neural foraminal narrowing, notably at L3-L4, L4-L5 and L5-S1. No vertebral body compression fractures. No suspicious bony lesions. Soft tissues: Overlying bowel gas pattern is normal. No suspicious soft tissue calcifications. Surgical clips in the right upper quadrant. Calcification of the thoracic aorta. Oblique images: No pars defects. IMPRESSION: 1. No acute fracture. 2. Moderate to severe multilevel degenerative changes of the spine. If clinical symptoms persist, consider an MRI for further evaluation. Dictated by: Lori Marie M.D. on 04/15/2024 at 16:33 Approved by: Lori Marie M.D. on 04/15/2024 at 16:38
== END ==
PROVIDERS: Family Provider Family Medicine; PCP Family Medicine; Referring Provider Physical Medicine & Rehabilitation; Visit Provider Physical Medicine & Rehabilitation
DX: M47.816 Spondylosis without myelopathy or radiculopathy, lumbar region (principal); M53.3 Sacrococcygeal disorders, not elsewhere classified; M54.9 Dorsalgia, unspecified; G89.29 Other chronic pain
CPT/HCPCS: 72110; 72202

== ENCOUNTER → 2024-04-30 14:13 | Outpatient (CLI) | payer MEDICARE, OTHER, SELFPAY ==
--- NOTE | 2024-04-30 14:14 | DI.RAD.S_ITS ---
PROCEDURE: XR SHOULDER RT MIN 2V INDICATIONS: RIGHT SHOULDER PAIN TECHNIQUE: 3 views of the shoulder were acquired. COMPARISON: None. FINDINGS: Bones: No fractures or dislocations. No suspicious bony lesions. Visualized ribs appear intact. Soft tissues: No suspicious soft tissue calcifications. IMPRESSION: No acute bony abnormality. Approved by: Leobardo Vela M.D. on 04/30/2024 at 15:15
== END ==
PROVIDERS: Family Provider Family Medicine; PCP Family Medicine; Referring Provider Physical Medicine & Rehabilitation; Visit Provider Physical Medicine & Rehabilitation
DX: M25.511 Pain in right shoulder (principal)
CPT/HCPCS: 73030

== ENCOUNTER → 2024-06-05 07:55 | Outpatient (CLI) | payer MEDICARE, OTHER, SELFPAY ==
--- NOTE | 2024-06-05 07:56 | DI.ECHO.S_ITS ---
[place] : : [address] : : [place] : : [id number] : : Phone: [phone] Echocardiogram Report + + :Name: EUGENIA HYMAN Study Date: 06/05/2024 Height: 71 in : :[facility] ReadingLocation: Weight: 205 lb : : Gender: Male BSA: 2.1 m2 : :: 1955 Age: 68 yrs BP: 140/76 mmHg: :Reason For Study: SHORTNESS OF BREATH : :Ordering Physician: BRUNA, : :DAYANA Estes Performed By: Rafa Tapia : :Referring: DAYANA MCFARLAND : + + Interpretation Summary The ejection fraction is estimated to be 55-60%. Diastolic function could not be accurately assessed due to contradictory data. The left atrium is borderline dilated. The right ventricle is normal in size and function. No significant valvular abnormalities. Pulmonary artery pressures cannot be estimated because of the lack of a measurable TR jet velocity but the IVC suggests a CVP of around 8 mmHg. Procedure: A two-dimensional transthoracic echocardiogram with color flow and Doppler was performed. The study quality was technically adequate. There is no prior echocardiogram noted for this patient. The patient was in sinus rhythm with heart rates between 60-62 bpm during the exam. Left Ventricle: The left ventricle is normal in size and wall thickness. The ejection fraction is estimated to be 55-60%. Diastolic function could not be accurately assessed due to contradictory data. Right Ventricle: The right ventricle is normal in size and function. Atria: The left atrium is borderline dilated. Right atrial size is normal. The interatrial septum grossly appears intact with no obvious evidence for an atrial septal defect. Mitral Valve: The mitral valve is normal. There is no mitral valve stenosis. There is trace mitral regurgitation. Aortic Valve: The aortic valve is grossly normal. The aortic valve is mildly calcified. There is no aortic valve stenosis. No aortic regurgitation is present. Tricuspid Valve: The tricuspid valve is normal. There is no tricuspid stenosis. There is a trace or physiologic amount of tricuspid regurgitation. Pulmonary artery pressures cannot be estimated because of the lack of a measurable TR jet velocity but the IVC suggests a CVP of around 8 mmHg. Pulmonic Valve: The pulmonic valve is not well visualized. There is no pulmonic valvular stenosis. There is no pulmonic valvular regurgitation. Great Vessels: The aortic root is normal size. The dimensions of the ascending aorta are normal. The IVC is dilated (diameter is greater than 2.1 cm) yet it collapses greater than 50% with a sniff. This suggests a right atrial pressure of 8 mm Hg. Pericardium/ Pleura There is no pericardial effusion. There is no pleural effusion. MMode/2D Measurements & Calculations LVIDd: 5.1 cm LVOT diam: 2.2 cm LVIDs: 2.8 cm Ao root diam: 3.3 cm FS: 44.3 % asc Aorta Diam: 3.5 cm IVSd: 1.1 cm LVPWd: 0.87 cm LV leal. diameter/BSA (cm/m^2): 2.4 LV sys. diameter/BSA (cm/m^2): 1.3 LA A2 area: 21.9 cm2 RA long axis: 5.5 cm LA A4 area: 24.7 cm2 RA area: 18.4 cm2 LA length (vol): 6.3 cm RA vol: 52.2 ml LA vol: 72.2 ml RA : 24.5 ml/m2 LA vol index: 33.9 ml/m2 IVC diam: 2.2 cm RVD1 (basal): 2.8 cm RVD2 (mid): 2.5 cm TAPSE: 2.6 cm Doppler Measurements & Calculations Ao V2 max: 137.4 cm/sec LVOT Max Jonathan: 92.4 cm/sec Ao V2 mean: 94.6 cm/sec LV V1 max P.4 mmHg Ao max P.6 mmHg LV V1 VTI: 21.7 cm Ao mean P.0 mmHg SORAIDA(I,D): 2.5 cm2 Ao V2 VTI: 33.5 cm SORAIDA(V,D): 2.6 cm2 sev ratio: 0.65 SORAIDA indexed to BSA (cm^2/m^2): 1.2 MV E max jonathan: 78.8 cm/sec TR max jonathan: 253.4 cm/sec MV A max jonathan: 119.3 cm/sec TR max P.7 mmHg MV E/A: 0.66 PA V2 max: 91.1 cm/sec Med Peak E' Jonathan: 5.4 cm/sec PA V2 mean: 71.9 cm/sec E/E' med: 14.6 PA mean P.2 mmHg Lat Peak E' Jonathan: 5.6 cm/sec PA pr(Accel): -1.5 mmHg E/E' lat: 14.2 E/e' average: 14.4 MV dec time: 0.33 sec [facility] 85.2 ml Reading Physician:05:56 PM
== END ==
LOC: ECHO 07:56
PROVIDERS: Family Provider Family Medicine; PCP Family Medicine; Referring Provider Physician Assistant; Visit Provider Physician Assistant
DX: R06.02 Shortness of breath (principal)
CPT/HCPCS: 93306

== ENCOUNTER 2024-06-16 14:01 | Outpatient (CLI) | payer MEDICARE, OTHER, SELFPAY ==
[2024-06-16] VITALS (8 sets, daily range): BP systolic 90–138; BP diastolic 50–65; PULSE 60–67; RESP 11–16; TEMP 36.2; O2SAT 97–100
--- NOTE | 2024-06-16 14:30 | DI.RAD.S_ITS ---
PROCEDURE: PAIN L/S FACET INJ/BLK 1ST JANEE INDICATIONS: Bilateral L2-L3 and L4 medial branch blocks LA COMPARISON: None. FINDINGS: Fluoroscopic spot filming was performed to verify placement of spinal needles at the bilateral L2, L3 and L4 level(s), as labeled on the films. Appropriate location(s) of the needle tip(s) was confirmed by injection of iodinated contrast. IMPRESSION: Intra procedural examination demonstrating appropriate positions of the needles. Dictated by: Tiago Alexander M.D. on 06/16/2024 at 15:59 Approved by: Tiago Alexander M.D. on 06/16/2024 at 15:59
[2024-06-16] MEDS: SODIUM CHLORIDE 0.9% 500 ML 1000 ML IV (15:12)
[2024-06-16] MEDS: iopamidoL 15 ML VIAL 3 ML INJ (15:18)
[2024-06-16] MEDS: BUPIVACAINE 0.5% (PF) 10 ML VIAL 5 ML INJ (15:19)
[2024-06-16] MEDS: LIDOCAINE 1% 20 ML 5 ML INJ (15:19)
--- NOTE | 2024-06-16 15:32 | PM.PROC.IR.1 ---
Date/Time/Diagnoses Date of procedure: 06/16/24 Time of procedure: 15:32 Pre-procedure diagnosis: FACET ARTHROPATHY Post-procedure diagnosis: same Procedure Notes Procedure: 1. BILATERAL L2, L3, L4 DIAGNOSTIC MB BLOCKS Indications: Jayce is referred by Dr. Montoya for treatment of Bilateral Axial LBP. Physician: Herman Rees Total Fluoroscopy time (seconds): 13 Total sedation minutes: 0 Complications: none Procedure in detail & Post-procedure care: DESCRIPTION OF PROCEDURE Fluoroscopically guided, contrast-controlled bilateral L2, L3, L4 medial branch blocks with 0.5cc of 0.5% Marcaine. Following review of allergy and review of potential side effects and complications, including, but not necessarily limited to, infection, allergic reaction, local tissue breakdown, nerve injury, paralysis, stroke and possible , the patient indicated that the patient understood and agreed to proceed. An informed consent document was signed by the patient, witnessed by a nurse, and placed in the patient's chart. After review of previous anaesthesic history and IV conscious sedation the patient was deemed safe to proceed with today's procedure with IV conscious sedation as ASA class II designation. Safety time-out was performed to confirm patient ID, procedure to be performed and site of procedure. IV sedation was not administered by the RN after DO order, titrated to patient comfort during the course of the procedure while the patient remained responsive to all verbal commands In the prone position, following sterile prep and drape of the lumbar region, the right L2, L3, L4 anatomical location of the medial branch of the dorsal ramus was identified fluoroscopically. Subsequently an anesthetic skin wheal using 1% lidocaine solution was initiated at each of the anatomical spots. Subsequently then a 22-gauge 3.5-inch spinal needle was atraumatically introduced and advanced under fluoroscopic guidance at each of the corresponding sites at the right L2, L3, L4 MB. After negative aspiration, 0.2cc of Isovue 200 was injected, confirming placement without vascular or intrathecal uptake. Subsequently then 0.5cc of 0.5% Marcaine solution was injected at each of the corresponding sites at the right L2, L3, L4 medial branch locations. The identical procedure was replicated on the left. The patient tolerated the procedure well without signs or symptoms of complications. The patient tolerated the procedure well without signs or symptoms of complications prior to transfer to the recovery area continued monitoring without incident. Post-procedure, the patient was monitored initiating provocative activities to measure the amount of relief from block of the facetogenic pain. The patient reported a VAS of 7 prior to the procedure and a post-procedure VAS of 1. It has been a pleasure to assist in the diagnostic and therapeutic care of your patient. POST OP INSTRUCTIONS The patient was provided with a Pain Log to complete over the next several hours and subsequent days prior to the patient's follow up with the ordering physician. If the patient has classifier operator relief to the solution applied, then they may be a candidate for medial branch rhizotomy. The patient is aware, was provided, once again, with a Pain Log and will follow up with the referring physician for review and clinical correlation
--- NOTE | 2024-06-16 16:00 | PC.NURSE ---
IV Fluids completed. Patient less drowsy, more alert then pre procedure. Denies dizziness or lightheaded when standing to ambulate few steps to w/c. updated with post instructions.
== END 2024-06-16 15:50 | disposition home or self-care (01) ==
LOC: RAD 14:01
PROVIDERS: Family Provider Family Medicine; PCP Family Medicine; Referring Provider Physical Medicine & Rehabilitation; Visit Provider Physical Medicine & Rehabilitation
DX: M47.816 Spondylosis without myelopathy or radiculopathy, lumbar region (principal)
CPT/HCPCS: 64493; 64494

== ENCOUNTER 2024-07-23 12:30 | Outpatient (CLI) | payer MEDICARE, OTHER, SELFPAY ==
[2024-07-23] VITALS (8 sets, daily range): BP systolic 87–114; BP diastolic 43–58; PULSE 60–77; RESP 11–18; TEMP 36.2; O2SAT 97–99
--- NOTE | 2024-07-23 13:00 | DI.RAD.S_ITS ---
PROCEDURE: PAIN L/S FACET INJ/BLK 1ST JANEE INDICATIONS: SPONDYLOSIS COMPARISON: [facility], , PAIN L/S FACET INJ/BLK 1ST JANEE, 06/16/2024, 15:13. FINDINGS: Fluoroscopic spot filming was performed to verify placement of spinal needles at the L2 through L4 level(s), as labeled on the films. Appropriate location(s) of the needle tip(s) was confirmed by injection of iodinated contrast. IMPRESSION: Contrast and needle placement overlying L2 through L4. Dictated by: Danna Danielson M.D. on 07/23/2024 at 16:27 Approved by: Danna Danielson M.D. on 07/23/2024 at 16:28
[2024-07-23] MEDS: LIDOCAINE 1% 20 ML 5 ML INJ (13:21)
[2024-07-23] MEDS: iopamidoL 15 ML VIAL 3 ML INJ (13:21)
[2024-07-23] MEDS: LIDOCAINE 2% INJ SDV 5ML 10 ML INJ (13:22)
--- NOTE | 2024-07-23 13:36 | P.PCN_ITS ---
Date/Time/Diagnoses Date of procedure: 07/23/24 Time of procedure: 13:36 Pre-procedure diagnosis: 1. FACET ARTHROPATHY Post-procedure diagnosis: same Procedure Notes Procedure: 1. BILATERAL L2, L3, L4 DIAGNOSTIC MB BLOCKS Indications: Jayce is referred by Dr. Montoya for treatment of Bilateral Axial LBP. Physician: Herman Rees Total Fluoroscopy time (seconds): 12 Total sedation minutes: 0 Complications: none Procedure in detail & Post-procedure care: DESCRIPTION OF PROCEDURE Fluoroscopically guided, contrast-controlled bilateral L2, L3, L4 medial branch blocks with 0.5cc of 2% Lidocaine. Following review of allergy and review of potential side effects and complications, including, but not necessarily limited to, infection, allergic reaction, local tissue breakdown, nerve injury, paralysis, stroke and possible , the patient indicated that the patient understood and agreed to proceed. An informed consent document was signed by the patient, witnessed by a nurse, and placed in the patient's chart. After review of previous anaesthesic history and IV conscious sedation the patient was deemed safe to proceed with today's procedure with IV conscious sedation as ASA class II designation. Safety time-out was performed to confirm patient ID, procedure to be performed and site of procedure. IV sedation was not administered by the RN after DO order, titrated to patient comfort during the course of the procedure while the patient remained responsive to all verbal commands In the prone position, following sterile prep and drape of the lumbar region, the right L2, L3, L4 anatomical location of the medial branch of the dorsal ramus was identified fluoroscopically. Subsequently an anesthetic skin wheal using 1% lidocaine solution was initiated at each of the anatomical spots. S ubsequently then a 22-gauge 3.5-inch spinal needle was atraumatically introduced and advanced under fluoroscopic guidance at each of the corresponding sites at the right L2, L3, L4 MB. After negative aspiration, 0.2cc of Isovue 200 was injected, confirming placement without vascular or intrathecal uptake. Subsequently then 0.5cc of 2% Lidocaine solution was injected at each of the corresponding sites at the right L2, L3, L4 medial branch locations. The identical procedure was replicated on the left. The patient tolerated the procedure well without signs or symptoms of complications. The patient tolerated the procedure well without signs or symptoms of complications prior to transfer to the recovery area continued monitoring without incident. Post-procedure, the patient was monitored initiating provocative activities to measure the amount of relief from block of the facetogenic pain. The patient reported a VAS of 7 prior to the procedure and a post-procedure VAS of 1. It has been a pleasure to assist in the diagnostic and therapeutic care of your patient. POST OP INSTRUCTIONS The patient was provided with a Pain Log to complete over the next several hours and subsequent days prior to the patient's follow up with the ordering physician. If the patient has broadcast meteorologist relief to the solution applied, then they may be a candidate for medial branch rhizotomy. The patient is aware, was provided, once again, with a Pain Log and will follow up with the referring physician for review and clinical correlation
== END 2024-07-23 13:40 | disposition home or self-care (01) ==
LOC: RAD 12:31
PROVIDERS: Family Provider Family Medicine; PCP Family Medicine; Referring Provider Physical Medicine & Rehabilitation; Visit Provider Physical Medicine & Rehabilitation
DX: M47.816 Spondylosis without myelopathy or radiculopathy, lumbar region (principal)
CPT/HCPCS: 64493; 64494; 99152

== ENCOUNTER 2024-09-28 15:15 | Outpatient (RCR) | payer MEDICARE, OTHER, SELFPAY ==
--- NOTE | 2024-07-09 15:46 | ST.OPIE ---
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 Tiara Jessica Reason for Referral CVA Setting Assessment Location Outpatient Care Visit Type Note Type Initial evaluation Next Note Type Next Note Type Treatment Note Patient Information Patient History Pt is a 68 year old male seen this date for cognitive- communication evaluation s/p CVA, which occurred in September 2023. 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 He continues with residual dysarthria and cognitive deficits. CT head on 09/27/23 revealed the following: Findings of new ischemia involving the left parieto-occipital region without hemorrhagic transformation. Findinigs are consistent with clinical symptoms. Stable small infarct in the left frontal region. PMHx significant for: Arthritis, basal cell carcinoma, Deep vein thrombosis, HTN, diabetes, lumbosacral disc disease. Pt demonstrated difficulties reporting timeline of medical events. He reports after being hospitalized for CVA he received PT/OT/ST at rehab facility. He states he worked with the speech therapist on memory and speaking, however continues with difficulties. 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 He currently lives with his . He states along with memory issues he has some speaking problems, specifically I will say wrong word or part of a word. He reports he has been practicing speaking slowly. He also reports writing difficulties that become worse in the evening. Previous Therapy Previous Speech-Language Therapy Yes History of Therapy Received speech therapy during rehab stay after CVA in September 2023. Subjective Mental Status Alert,Responsive,Cooperative Assessment Oral Motor Examination Completed Yes Results Generalized lingual and labial weakness and reduced ROM. Pt appears 100% intelligible, slight slur, however able to express wants/needs/complex ideas and thoughts. Informal Assessment Expressive Language Normal No Expressive Language Impairment(s) Confrontation naming Pragmatic Language Normal Yes Cognition Normal No Cognitive Impairment(s) Short-term memory Formal Assessment Standardized Test/Screener Type Cognitive Linguistic Quick Test (CLQT) Administration Complete Results ST administered CLQT with Pt scoring a total composite score of 3.6 indicating a severity rating of WNL, however WNL range is 3.5-4.0. Pt scored the following on each section: Attention 179- WNL Memory 129- Mild Executive Functions 28- WNL Language 26- Mild Visuospatial skills 89- WNL Clock drawing 11- WNL Pt demonstrated strengths in attention and executive functions, however weakness with memory recall and confrontation naming. Findings/Results Language Function Mildly impaired Cognitive Function Mildly impaired Findings Pt presents with mild cognitive-communication deficit, mild expressive aphasia, mild dysarthria. ST is warranted in order to learn internal and external memory compensatory strategies, word finding and dysarthria compensatory strategies. Cognitive Communication Deficits Self-awareness of Cognitive- Predictive awareness (able to Communication Deficits predict problem; impact of impairments) Plan of Care Speech-Language Treatment Yes Frequency 1x/week Duration 3 months Patient/Caregiver Education Described results of evaluation,Patient expressed understanding of evaluation, Patient expressed agreement with goals and treatment plans ,Patient requires further education/training,Family/ caregivers require further education/training Short Term Goals STG 1: Patient will name/ describe objects/pictures with 80% accuracy and mod cues for forced choice, phonemic/ semantic cueing, gestural/ contextual cues. STG 2: Patient will recall new information, up to 5 elements , with 80% of opportunities and occasional verbal cues and visual cues in order to increase safety with ADLs. STG 3: Patient will demonstrate increase short term recall for functional/ daily life information with 90 % of opportunities given environmental modifications implemented and by using visual aids in order to promot independence. STG 4: Patient will utilize speaking compensatory strategies 90% of the time in order to communicate basic wants/needs with moderate verbal and visual cues. Fdc Goals LTG 1: Patient will develop functional, cognitive- linguistic-based skills and utilize compensatory strategies to communicate wants and needs effectively to different conversational partners, and participate socially in functional living environment
--- NOTE | 2024-07-09 15:46 | ST.OPPOC ---
Physical, Occupational & Speech Therapy At [facility] Visit Care Team Role Provider Type Francesca Montoya DO Family Provider Non-Staff Primary Care Provider Address: [facility] [place], [address] Tiara Jessica MD Attending Provider Non-Staff Referring Provider Address: [facility], [address] Speech Pathology Plan of Care Plan of Care Dates 07/09/24-10/09/[address] Tiara Jessica Patient History Pt is a 68 year old male seen this date for cognitive-communication evaluation s/p CVA, which occurred in September 2023. 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 He continues with residual dysarthria and cognitive deficits. CT head on revealed the following: Findings of new ischemia involving the left parieto-occipital region without hemorrhagic transformation. Findinigs are consistent with clinical symptoms. Stable small infarct in the left frontal region . PMHx significant for: Arthritis, basal cell carcinoma, Deep vein thrombosis, HTN, diabetes, lumbosacral disc disease. Pt demonstrated difficulties reporting timeline of medical events. He reports after being hospitalized for CVA he received PT/OT/ST at rehab facility. He states he worked with the speech therapist on memory and speaking, however continues with difficulties. 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 He currently lives with his . He states along with memory issues he has some speaking problems, specifically I will say wrong word or part of a word. He reports he has been practicing speaking slowly. He also reports writing difficulties that become worse in the evening. Self-awareness of Cognitive- Predictive awareness (abl Communication Deficits Short Term Goals STG 1: Patient will name/describe objects/ pictures with 80% accuracy and mod cues for forced choice, phonemic/semantic cueing, gestural/contextual cues. STG 2: Patient will recall new information, up to 5 elements, with 80% of opportunities and occasional verbal cues and visual cues in order to increase safety with ADLs. STG 3: Patient will demonstrate increase short term recall for functional/daily life information with 90% of opportunities given environmental modifications implemented and by using visual aids in order to promot independence. STG 4: Patient will utilize speaking compensatory strategies 90% of the time in order to communicate basic wants/needs with moderate verbal and visual cues. Rectifying Operator Goals LTG 1: Patient will develop functional, fhjoswuml-jxvhlflojg-hvcer skills and utilize compensatory strategies to communicate wants and needs effectively to different conversational partners, and participate socially in functional living environment Comment: Electronically Signed by: JOHNSON Arceo 07/09/24 1142 If you are in agreement with this Plan of Care, please return a signed and dated copy. I have reviewed this Plan of Care and certify that the skilled therapy services above are required to meet the patient?s needs. Physician Signature Date Printed Name and Credentials Clinical Instructor Signature Printed Name and Credentials
--- NOTE | 2024-07-15 15:51 | ST.OPTN ---
Visit Care Team Role Provider Type Francesca Montoya DO Family Provider Non-Staff Primary Care Provider Address: [facility] [place], [address] Tiara Jessica MD Attending Provider Non-Staff Referring Provider Address: [address] [place], [address] FINISHING TUNNEL OPERATOR Treatment Note FINISHING TUNNEL OPERATOR Treatment Note Start: 07/15/24 15:42 Freq: Status: Active Protocol: Document 07/15/24 15:42 DAYNE (Rec: 07/15/24 15:51 MA [id number]) Speech Pathology Treatment Note Session Time Visit Start Time 15:15 Visit Stop Time 15:45 Total Visit Minutes 30 Visit Information Visit Number 2 Plan of Care Dates 07/09/24-10/09/24 Setting Treatment Setting Outpatient Care Next Note Type Next Note Type Treatment Note General Information Patient History Pt is a 68 year old male seen this date for cognitive- communication evaluation s/p CVA, which occurred in September 2023. 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 He continues with residual dysarthria and cognitive deficits. CT head on 09/27/23 revealed the following: Findings of new ischemia involving the left parieto-occipital region without hemorrhagic transformation. Findinigs are consistent with clinical symptoms. Stable small infarct in the left frontal region. PMHx significant for: Arthritis, basal cell carcinoma, Deep vein thrombosis, HTN, diabetes, lumbosacral disc disease. Pt demonstrated difficulties reporting timeline of medical events. He reports after being hospitalized for CVA he received PT/OT/ST at rehab facility. He states he worked with the speech therapist on memory and speaking, however continues with difficulties. 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 He currently lives with his . He states along with memory issues he has some speaking problems, specifically I will say wrong word or part of a word. He reports he has been practicing speaking slowly. He also reports writing difficulties that become worse in the evening. Subjective Observations/Patient Presentation Pt arrived to therapy on time. Objective Short Term Goals STG 1: Patient will name/ describe objects/pictures with 80% accuracy and mod cues for forced choice, phonemic/ semantic cueing, gestural/ contextual cues. STG 2: Patient will recall new information, up to 5 elements , with 80% of opportunities and occasional verbal cues and visual cues in order to increase safety with ADLs. STG 3: Patient will demonstrate increase short term recall for functional/ daily life information with 90 % of opportunities given environmental modifications implemented and by using visual aids in order to promot independence. STG 4: Patient will utilize speaking compensatory strategies 90% of the time in order to communicate basic wants/needs with moderate verbal and visual cues. Halfway Goals LTG 1: Patient will develop functional, cognitive- linguistic-based skills and utilize compensatory strategies to communicate wants and needs effectively to different conversational partners, and participate socially in functional living environment Treatment Activities CLQT review, internal and external memory strategies Assessment Assessment of Improvement ST educated Pt on CLQT results and reviewed outcomes. Pt score mild on memory and language. 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 ST provided educational handouts on internal and external memory strategies and reviewed them with Pt and encouraged him to read through them at home and return with questions. Pt reports he writes down information, such as grocery lists and utilizes several different calendars to track information. He states him and his use a chalkboard at home to write down information to remember and he also uses a pillbox. ST to practice utilizing internal/external memory strategies with Pt during next session.
--- NOTE | 2024-07-20 16:36 | ST.OPTN ---
Visit Care Team Role Provider Type Francesca Montoya DO Family Provider Non-Staff Primary Care Provider Address: [facility] [place], [address] Tiara Jessica MD Attending Provider Non-Staff Referring Provider Address: [address] [place], [address] INDUSTRIAL MAINTENANCE TECH Treatment Note INDUSTRIAL MAINTENANCE TECH Treatment Note Start: 07/15/24 15:42 Freq: Status: Active Protocol: Document 07/20/24 16:34 MA (Rec: 07/20/24 16:36 MA [id number]) Speech Pathology Treatment Note Session Time Visit Start Time 16:00 Visit Stop Time 16:30 Total Visit Minutes 30 Visit Information Visit Number 3 Plan of Care Dates 07/09/24-10/09/24 Setting Treatment Setting Outpatient Care Next Note Type Next Note Type Treatment Note General Information Patient History Pt is a 68 year old male seen this date for cognitive- communication evaluation s/p CVA, which occurred in September 2023. 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 He continues with residual dysarthria and cognitive deficits. CT head on 09/27/23 revealed the following: Findings of new ischemia involving the left parieto-occipital region without hemorrhagic transformation. Findinigs are consistent with clinical symptoms. Stable small infarct in the left frontal region. PMHx significant for: Arthritis, basal cell carcinoma, Deep vein thrombosis, HTN, diabetes, lumbosacral disc disease. Pt demonstrated difficulties reporting timeline of medical events. He reports after being hospitalized for CVA he received PT/OT/ST at rehab facility. He states he worked with the speech therapist on memory and speaking, however continues with difficulties. 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 He currently lives with his . He states along with memory issues he has some speaking problems, specifically I will say wrong word or part of a word. He reports he has been practicing speaking slowly. He also reports writing difficulties that become worse in the evening. Subjective Observations/Patient Presentation Pt arrived to therapy on time. Objective Short Term Goals STG 1: Patient will name/ describe objects/pictures with 80% accuracy and mod cues for forced choice, phonemic/ semantic cueing, gestural/ contextual cues. STG 2: Patient will recall new information, up to 5 elements , with 80% of opportunities and occasional verbal cues and visual cues in order to increase safety with ADLs. STG 3: Patient will demonstrate increase short term recall for functional/ daily life information with 90 % of opportunities given environmental modifications implemented and by using visual aids in order to promot independence. STG 4: Patient will utilize speaking compensatory strategies 90% of the time in order to communicate basic wants/needs with moderate verbal and visual cues. [facility] Goals LTG 1: Patient will develop functional, cognitive- linguistic-based skills and utilize compensatory strategies to communicate wants and needs effectively to different conversational partners, and participate socially in functional living environment Treatment Activities internal and external memory strategies Assessment Patient Response to Treatment Excellent Rehab Potential Excellent Impairments Identified Cognitive communication Progress Towards Goals Excellent Progress Assessment of Overall Progress Improving Assessment of Improvement Pt brought in external memory sheet provided during last session. He checked each external memory strategy that he currently utilizes, such as calendars, post it notes, pillbox. He reports he does not utilize his phone calendar , however has not had difficulties tracking appointments on calendar at home. ST assessed memory recall utilizing word association memory strategy with recall of 5 unrelated items in order to promote carryover. Pt recalled 5 unrelated words with about a 1 minute delay with about 80% accuracy requiring mild cues. 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 ST to continue per POC.
--- NOTE | 2024-07-27 16:26 | ST.OPTN ---
Visit Care Team Role Provider Type Francesca Montoya DO Family Provider Non-Staff Primary Care Provider Address: [address] [place] [address], [address] Tiara Jessica MD Attending Provider Non-Staff Referring Provider Address: [address] [place], [address] LUBE MAN Treatment Note LUBE MAN Treatment Note Start: 07/15/24 15:42 Freq: Status: Active Protocol: Document 07/27/24 16:16 MA (Rec: 07/27/24 16:26 MA [id number]) Speech Pathology Treatment Note Session Time Visit Start Time 16:00 Visit Stop Time 16:30 Total Visit Minutes 30 Visit Information Visit Number 4 Plan of Care Dates 07/09/24-10/09/24 Setting Treatment Setting Outpatient Care Next Note Type Next Note Type Treatment Note General Information Patient History Pt is a 68 year old male seen this date for cognitive- communication evaluation s/p CVA, which occurred in September 2023. 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 He continues with residual dysarthria and cognitive deficits. CT head on 09/27/23 revealed the following: Findings of new ischemia involving the left parieto-occipital region without hemorrhagic transformation. Findinigs are consistent with clinical symptoms. Stable small infarct in the left frontal region. PMHx significant for: Arthritis, basal cell carcinoma, Deep vein thrombosis, HTN, diabetes, lumbosacral disc disease. Pt demonstrated difficulties reporting timeline of medical events. He reports after being hospitalized for CVA he received PT/OT/ST at rehab facility. He states he worked with the speech therapist on memory and speaking, however continues with difficulties. 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 He currently lives with his . He states along with memory issues he has some speaking problems, specifically I will say wrong word or part of a word. He reports he has been practicing speaking slowly. He also reports writing difficulties that become worse in the evening. Subjective Observations/Patient Presentation Pt arrived to therapy on time. Objective Short Term Goals STG 1: Patient will name/ describe objects/pictures with 80% accuracy and mod cues for forced choice, phonemic/ semantic cueing, gestural/ contextual cues. STG 2: Patient will recall new information, up to 5 elements , with 80% of opportunities and occasional verbal cues and visual cues in order to increase safety with ADLs. STG 3: Patient will demonstrate increase short term recall for functional/ daily life information with 90 % of opportunities given environmental modifications implemented and by using visual aids in order to promot independence. STG 4: Patient will utilize speaking compensatory strategies 90% of the time in order to communicate basic wants/needs with moderate verbal and visual cues. [facility] Goals LTG 1: Patient will develop functional, cognitive- linguistic-based skills and utilize compensatory strategies to communicate wants and needs effectively to different conversational partners, and participate socially in functional living environment Treatment Activities internal and external memory strategies Assessment Patient Response to Treatment Excellent Rehab Potential Excellent Impairments Identified Cognitive communication Progress Towards Goals Excellent Progress Assessment of Overall Progress Improving Assessment of Improvement Pt reports he practiced recalling the words during last session related to the word association task, however exhibited difficulties recalling them during session. ST assessed memory recall utilizing word association memory strategy with recall of 5 unrelated items in order to promote carryover. Pt recalled 5 unrelated words with about a 1 minute delay with about 80% accuracy requiring mild cues. He benefited most from semantic cues and utilizing visualization memory strategy. 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 ST facilitated conversation in regards to discharging from therapy d/t Pt exhibiting mild deficits, however Pt reports he would like to come in on a monthly basis to check in on cognition and work on strategies. ST to continue per POC.
--- NOTE | 2024-08-27 16:36 | ST.OPTN ---
Visit Care Team Role Provider Type Francesca Montoya DO Family Provider Non-Staff Primary Care Provider Address: [address] [place] [address], [address] Tiara Jessica MD Attending Provider Non-Staff Referring Provider Address: [address] [place], [address] ENGLISH AND READING INSTRUCTOR Treatment Note ENGLISH AND READING INSTRUCTOR Treatment Note Start: 07/15/24 15:42 Freq: Status: Active Protocol: Document 08/27/24 16:13 DAYNE (Rec: 08/27/24 16:13 MA [id number]) Speech Pathology Treatment Note Session Time Visit Start Time 16:00 Visit Stop Time 16:30 Total Visit Minutes 30 Visit Information Visit Number 5 Plan of Care Dates 07/09/24-10/09/24 Setting Treatment Setting Outpatient Care Next Note Type Next Note Type Treatment Note General Information Patient History Pt is a 68 year old male seen this date for cognitive- communication evaluation s/p CVA, which occurred in September 2023. 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 He continues with residual dysarthria and cognitive deficits. CT head on 09/27/23 revealed the following: Findings of new ischemia involving the left parieto-occipital region without hemorrhagic transformation. Findinigs are consistent with clinical symptoms. Stable small infarct in the left frontal region. PMHx significant for: Arthritis, basal cell carcinoma, Deep vein thrombosis, HTN, diabetes, lumbosacral disc disease. Pt demonstrated difficulties reporting timeline of medical events. He reports after being hospitalized for CVA he received PT/OT/ST at rehab facility. He states he worked with the speech therapist on memory and speaking, however continues with difficulties. 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 He currently lives with his . He states along with memory issues he has some speaking problems, specifically I will say wrong word or part of a word. He reports he has been practicing speaking slowly. He also reports writing difficulties that become worse in the evening. Subjective Observations/Patient Presentation Pt arrived to therapy on time. Objective Short Term Goals STG 1: Patient will name/ describe objects/pictures with 80% accuracy and mod cues for forced choice, phonemic/ semantic cueing, gestural/ contextual cues. STG 2: Patient will recall new information, up to 5 elements , with 80% of opportunities and occasional verbal cues and visual cues in order to increase safety with ADLs. STG 3: Patient will demonstrate increase short term recall for functional/ daily life information with 90 % of opportunities given environmental modifications implemented and by using visual aids in order to promot independence. STG 4: Patient will utilize speaking compensatory strategies 90% of the time in order to communicate basic wants/needs with moderate verbal and visual cues. [facility] Goals LTG 1: Patient will develop functional, cognitive- linguistic-based skills and utilize compensatory strategies to communicate wants and needs effectively to different conversational partners, and participate socially in functional living environment Treatment Activities internal and external memory strategies/ word finding Assessment Patient Response to Treatment Excellent Rehab Potential Excellent Impairments Identified Cognitive communication Progress Towards Goals Excellent Progress Assessment of Improvement Pt reports he has been meaning to practice memory strategies provided during last session and activities, however reports he has been very busy at work. Pt reports no cognitive deficits since last visit, except occasionally mispelling names at work. He does state, however, some word finding difficulties when trying to explain information to someone/coworkers, which results in him hesitating and trying to pick his words. ST educated Pt on word finding strategies, such as reframing what he is trying to say, talk around words, and ensuring the listener understanding. Pt verbalized understanding. ST assessed memory recall utilizing word association memory strategy with recall of 5 unrelated items in order to promote carryover. Pt recalled 5 unrelated words with about a 1 minute delay with about 90% accuracy requiring mild cues. He benefited most from semantic cues and utilizing visualization memory strategy. Pt reports he would like to come in on a monthly basis to check in on cognition and work on strategies. ST to continue per POC.
--- NOTE | 2024-09-28 15:50 | ST.OPTN ---
Visit Care Team Role Provider Type Francesca Montoya DO Family Provider Non-Staff Primary Care Provider Address: [facility] [place], [address] Tiara Jessica MD Attending Provider Non-Staff Referring Provider Address: [address] [place], [address] DEPARTMENT Treatment Note [address] DEPARTMENT Treatment Note Start: 07/15/24 15:42 Freq: Status: Active Protocol: Document 09/28/24 15:32 MA (Rec: 09/28/24 15:50 MA [id number]) Speech Pathology Treatment Note Session Time Visit Start Time 15:15 Visit Stop Time 15:45 Total Visit Minutes 30 Visit Information Visit Number 6 Plan of Care Dates 07/09/24-10/09/24 Setting Treatment Setting Outpatient Care Next Note Type Next Note Type Treatment Note General Information Patient History Pt is a 68 year old male seen this date for cognitive- communication evaluation s/p CVA, which occurred in September 2023. 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 He continues with residual dysarthria and cognitive deficits. CT head on 09/27/23 revealed the following: Findings of new ischemia involving the left parieto-occipital region without hemorrhagic transformation. Findinigs are consistent with clinical symptoms. Stable small infarct in the left frontal region. PMHx significant for: Arthritis, basal cell carcinoma, Deep vein thrombosis, HTN, diabetes, lumbosacral disc disease. Pt demonstrated difficulties reporting timeline of medical events. He reports after being hospitalized for CVA he received PT/OT/ST at rehab facility. He states he worked with the speech therapist on memory and speaking, however continues with difficulties. 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 He currently lives with his . He states along with memory issues he has some speaking problems, specifically I will say wrong word or part of a word. He reports he has been practicing speaking slowly. He also reports writing difficulties that become worse in the evening. Subjective Observations/Patient Presentation Pt arrived to therapy on time. Objective Short Term Goals STG 1: Patient will name/ describe objects/pictures with 80% accuracy and mod cues for forced choice, phonemic/ semantic cueing, gestural/ contextual cues.- [facility] STG 2: Patient will recall new information, up to 5 elements , with 80% of opportunities and occasional verbal cues and visual cues in order to increase safety with ADLs.- [facility] STG 3: Patient will demonstrate increase short term recall for functional/ daily life information with 90 % of opportunities given environmental modifications implemented and by using visual aids in order to promot independence.- [facility] STG 4: Patient will utilize speaking compensatory strategies 90% of the time in order to communicate basic wants/needs with moderate verbal and visual cues.- [facility] Account Review Specialist Goals LTG 1: Patient will develop functional, cognitive- linguistic-based skills and utilize compensatory strategies to communicate wants and needs effectively to different conversational partners, and participate socially in functional living environment- MET Treatment Activities internal and external memory strategies/ word finding Assessment Patient Response to Treatment Excellent Rehab Potential Excellent Impairments Identified Cognitive communication Progress Towards Goals Excellent Progress,Appropriate for Discharge Assessment of Overall Progress Improving Assessment of Improvement Pt reports improvements with memory and word finding, however continues with flucuating abilities. He states he occasionally has word finding difficulties at work and attempts to utilize the association word finding strategy, however reports he can't always do that on the spot. He states he will usually tell the listener that he can't think of the word and he will move on in conversation and then come back to it if he can recall the word. ST educated Pt on additional word finding strategies, such as circumlocation. He reports that a lot of these words difficult to recall are work related words that don't have other meanings. ST recommended Pt write down any words that are difficult for him to name and to practice saying them outloud. Pt verbalized understanding. ST facilitated conversation with Pt in regards to to discharge from therapy this date d/t Pt independent with stratgies and meeting all goals. ST recommended Pt return to therapy if increase in memory/ word finding deficits arise. Pt verbalized understanding. Reviewed with Patient Goals,Progress Being Made Patient/Caregiver Understanding Excellent Plan Frequency of Treatment No Further Therapy
== END 2024-09-30 14:53 | disposition home or self-care (01) ==
LOC: SP 15:15
PROVIDERS: Family Provider Family Medicine; PCP Family Medicine; Referring Provider Psychiatry & Neurology Neurology; Visit Provider Psychiatry & Neurology Neurology
DX: I63.9 Cerebral infarction, unspecified (principal); R47.89 Other speech disturbances
CPT/HCPCS: 92507; 92523

== ENCOUNTER 2024-09-29 07:15 | Outpatient (CLI) | payer MEDICARE, OTHER, SELFPAY ==
[2024-09-29] VITALS (14 sets, daily range): BP systolic 116–152; BP diastolic 57–79; PULSE 60–61; RESP 14–33; TEMP 36.2; O2SAT 96–100
--- NOTE | 2024-09-29 08:00 | DI.RAD.S_ITS ---
PROCEDURE: PAIN L/S MED/LAT N RFA BILAT INDICATIONS: Bilateral L2-L3 and L4 medial branch RFA COMPARISON: None. FINDINGS: Fluoroscopic spot filming was performed to verify placement of spinal needles at the bilateral L2,L3, L4 level(s), as labeled on the films. Appropriate location(s) of the needle tip(s) was confirmed by injection of iodinated contrast. IMPRESSION: Intraoperative guidance provided. Dictated by: Rober Patiño M.D. on 09/29/2024 at 14:32 Approved by: Rober Patiño M.D. on 09/29/2024 at 14:34
[2024-09-29] MEDS: MIDAZOLAM 2 MG/2 ML VIAL 0.5 MG IV (08:11)
[2024-09-29] MEDS: LIDOCAINE 1% 20 ML 5 ML INJ (08:17)
[2024-09-29] MEDS: BUPIVACAINE 0.5% (PF) 10 ML VIAL 5 ML INJ (08:18)
[2024-09-29] MEDS: MIDAZOLAM 5 MG/ML VIAL IV ×2 (08:21→08:38)
--- NOTE | 2024-09-29 09:03 | P.PCN_ITS ---
Date/Time/Diagnoses Date of procedure: 09/29/24 Time of procedure: 09:03 Pre-procedure diagnosis: 1. RECALCITRANT FACET ARTHROPATHY Post-procedure diagnosis: same Procedure Notes Procedure: 1. BILATERAL L2, L3, L4 MEDIAL BRANCH RADIOFREQUENCY NEUROTOMY Indications: Jayce is referred by Dr. Montoya for treatment of facet arthropathy. Physician: Herman Rees Total Fluoroscopy time (seconds): 21 Total sedation minutes: 46 Complications: none Procedure in detail & Post-procedure care: DESCRIPTION OF PROCEDURE Bilateral L3, L4 and L5 medial branch radiofrequency neurotomy The patient is well known to this clinic having undergone previous facet injections with good but temporary relief. The patient has experienced appropriate, concordant relief with previous facet and median branch blocks but the patient's pain has been recalcitrant to further conservative measures. Therefore, based upon the patient's relief and persistent symptoms, the patient is considered an appropriate candidate for facet rhizotomy. All of the patient's questions regarding the risks versus benefits of the procedure, including, but not limited to, bleeding, infection, temporary as well as lasting nerve injury, paralysis, stroke, and , as well treatment alternatives were answered to satisfaction. After obtaining informed consent, denial of pertinent drug allergies, as well as being made aware of the potential risks of bleeding, infection, spinal cord trauma, paralysis, temporary and permanent nerve damage, seizure, stroke, and possible , the patient was brought to the fluoroscopy suite and positioned prone on the fluoroscopy table. After review of previous anaesthesic history and IV conscious sedation the patient was deemed safe to proceed with today's procedure with IV conscious sedation as ASA class II designation. Safety time-out was performed to confirm patient ID, procedure to be performed and site of procedure. IV sedation was accomplished with a combination of 1.5 mg of Versed administered by the RN after DO order, titrated to patient comfort during the course of the procedure while the patient remained responsive to all verbal commands. The lumbar region was prepped in usual sterile fashion and covered with a fenestrated drape in the usual sterile fashion. Appropriate monitors applied including pulse oximeter, pulse, and blood pressure for regular monitoring throughout the procedure. After local infiltration using 1% lidocaine, under fluoroscopic guidance, a 10- cm RF insulated needle with a 10-mm active tip was positioned parallel to the junction of the right the superior articulating process where the L4 medial branch resides. Needle placement was confirmed with motor stimulation of .5v on the right which produced local stimulation without radicular component. The stimulation was then increased to 2v with, once again, only local multifidus stimulation without radicular component. The needle was then removed and the identical procedure was performed along the length of the right L3 medial branch with motor stimulation at .7v on the right. The identical procedure was once again performed along the length of the right L2 and medial branch with motor stimulation of .5v on the right. The medial branches were then anesthetised with 0.5% marcaine. This was then followed by two discreet lesions performed at 80 degrees Celsius for 90 seconds each. The identical procedures were repeated on the left. The patient tolerated the procedure well without signs or symptoms of complications prior to transfer to the recovery area continued monitoring witho ut incident. The patient was then transferred to the recovery area where they were observed for an appropriate period of time after the injection. The patient reported a VAS score of 9 prior to the procedure and a post-procedure VAS of 0. POST OP INSTRUCTIONS The patient was provided a Pain Log to continue to record the patient's response to the target-specific procedure prior to the patient's follow-up visit with the referring physician. Additionally, specific post-injection care instructions and a contact number to our office were provided if concerns arise regarding possible complications associated with the procedure are suspected.
== END 2024-09-29 09:20 | disposition home or self-care (01) ==
LOC: RAD 07:16
PROVIDERS: Family Provider Family Medicine; PCP Family Medicine; Referring Provider Physical Medicine & Rehabilitation; Visit Provider Physical Medicine & Rehabilitation
DX: M47.816 Spondylosis without myelopathy or radiculopathy, lumbar region (principal)
CPT/HCPCS: 64635; 64636; 99152; 99153; J2250

== ENCOUNTER → 2024-12-17 15:12 | Outpatient (CLI) | payer MEDICARE, OTHER, SELFPAY ==
--- NOTE | 2024-12-17 15:14 | DI.US.S_ITS ---
PROCEDURE: US CAROTID DOPPLER BI INDICATIONS: CVA, STENOSIS RIGHT CAROTID ARTERY TECHNIQUE: Color and pulse Doppler interrogation was performed of both carotid systems, with image documentation and velocity measurements. COMPARISON: [facility], CT, CT ANGIO HEAD AND NECK, 09/27/2023, 15:22. FINDINGS: Stenosis calculations are based on SRU (Society of Radiologists in Ultrasound) criteria. Right side: Brachial blood pressure: 163/68 mm Hg. Common carotid artery peak systolic velocity: 101 cm/sec. Internal carotid artery peak systolic velocity: 170 cm/sec. Internal carotid artery end diastolic velocity: 36 cm/sec. External carotid artery peak systolic velocity: 144 cm/sec. ICA/CCA peak systolic ratio: 1.7 . Gimenez scale imaging description: [id number] plaque Percent internal carotid artery stenosis: 50-69% . Vertebral artery: Flow direction is antegrade. Left side: Brachial blood pressure: 157/84 mm Hg. Common carotid artery peak systolic velocity: 98 cm/sec. Internal carotid artery peak systolic velocity: 108 cm/sec. Internal carotid artery end diastolic velocity: 26 cm/sec. External carotid artery peak systolic velocity: 162 cm/sec. ICA/CCA peak systolic ratio: 1.1 . Gimenez scale imaging description: Carotid endarterectomy, appearance of mild intimal hyperplasia Percent internal carotid artery stenosis: Less than 50% . Vertebral artery: Flow direction is antegrade. IMPRESSION: 1. In the right carotid artery, there is 50-69% stenosis based on peak systolic velocity criteria. 2. In the left carotid artery, there is less than 50% stenosis based on peak systolic velocity criteria. Carotid endarterectomy, appearance of mild intimal hyperplasia 3. Antegrade vertebral arteries. Dictated by: Hermelindo Elena M.D. on 12/17/2024 at 16:35 Approved by: Hermelindo Elena M.D. on 12/17/2024 at 16:38
== END ==
PROVIDERS: Family Provider Family Medicine; PCP Family Medicine; Referring Provider Psychiatry & Neurology Neurology; Visit Provider Psychiatry & Neurology Neurology
DX: I65.23 Occlusion and stenosis of bilateral carotid arteries (principal); I63.9 Cerebral infarction, unspecified
CPT/HCPCS: 93880

== ENCOUNTER 2024-12-29 13:50 | Outpatient (CLI) | payer MEDICARE, OTHER, SELFPAY ==
[2024-12-29] VITALS (8 sets, daily range): BP systolic 124–155; BP diastolic 63–70; PULSE 60–70; RESP 11–19; TEMP 36.2; O2SAT 98–100
--- NOTE | 2024-12-29 13:52 | DI.RAD.S_ITS ---
PROCEDURE: PAIN L/S TRANSFORAM INJECT JANEE COMPARISON: None. INDICATIONS: JANEE 4-5 TRANSFORAMINAL FINDINGS/IMPRESSION: Fluoroscopic guidance utilized for a transforaminal injection at L4-5 Dictated by: Jose Joseph M.D. on 12/29/2024 at 17:05 Approved by: Jose Joseph M.D. on 12/29/2024 at 17:05
[2024-12-29] MEDS: MIDAZOLAM 2 MG/2 ML VIAL 1 MG IV (14:51)
[2024-12-29] MEDS: BUPIVACAINE 0.25% (PF) VIAL 2 ML INJ (15:00)
[2024-12-29] MEDS: BETAMETHASONE 30 MG/5 ML MDV 12 MG INJ (15:01)
[2024-12-29] MEDS: iopamidoL 15 ML VIAL 3 ML INJ (15:01)
[2024-12-29] MEDS: DEXAMETHASONE 10 MG/ML VIAL 20 MG INJ (15:02)
--- NOTE | 2024-12-29 15:12 | PM.PROC.IR.1 ---
Date/Time/Diagnoses Date of procedure: 12/29/24 Time of procedure: 15:12 Pre-procedure diagnosis: 1. FORAMINAL STENOSIS WITH LE SYMPTOMS Procedure Notes Procedure: 1. FLUOROSCOPICALLY GUIDED CONTRAST CONTROLLED TRANSFORAMINAL EPIDURAL STEROID INJECTION - BILATERAL L4/5 TFESI Indications: Jayce is referred by Dr. Montoya for treatment of Foraminal Stenosis with bilateral LE Symptoms Physician: Herman Rees Total Fluoroscopy time (seconds): 17 Total sedation minutes: 19 Complications: none Procedure in detail & Post-procedure care: FINDINGS Foraminal Nerve Root Compression secondary to disc disease and facet hypertrophy DESCRIPTION OF PROCEDURE Following review of allergy and review of potential side effects and complications, including, but not necessarily limited to, infection, allergic reaction, local tissue breakdown, stroke, temporary or permanent nerve injury, paralysis, and possible , the patient indicated that the patient understood and agreed to proceed. An informed consent document was signed by the patient, witnessed by a nurse, and placed in the patient's chart. Additionally, other treatment options including medications, modalities, and physical therapy were reviewed with the patient. After review of previous anaesthesic history and IV conscious sedation the patient was deemed safe to proceed with today?s procedure with IV conscious sedation as ASA class II designation. Safety time-out was performed to confirm patient ID, procedure to be performed and site of procedure. IV sedation was accomplished with a combination of 1mg of Versed was administered by the RN after DO order, titrated to patient comfort during the course of the procedure while the patient remained responsive to all verbal commands In the prone position following sterile prep and drape of the lumbar region, the right L4/5 posterior neuroforamen was identified fluoroscopically. The skin was anesthetized via a 25-gauge 1.5-inch needle with 1% lidocaine solution. At this point, a 25-gauge 3.5-inch spinal needle was atraumatically introduced and advanced under fluoroscopic guidance through the posterior right L4/5 neuroforamen to approximately the anterior aspect of the canal. Depth was confirmed on lateral view. Following negative aspiration, injection of approximately 1.5cc of Isovue 200 under live fluoroscopy in the AP view confirmed excellent flow along the nerve root, into the epidural space without vascular or intrathecal uptake observed Radiological data, including multiple fluoroscopic views of the lumbosacral spine, reveal a spinal needle at the right L4/5 posterior neuroforamen. Subsequent views show flow of contrast material flowing superiorly and inferiorly along the nerve root confirming epidural flow. Subsequently, a test dose of 1.5cc of 1% lidocaine solution was administered and patient was observed for two minutes for signs or symptoms of complications, including abdominal pain, shortness of breath, bilateral upper or lower extremity weakness, nausea and vomiting, prior to steroid injection. At this point, a total of 2cc or 10mg of dexamethasone and 6mg betamethasone was injected without incident. Attention was then refocused to the left L4/5 level where the identical procedure was replicated. The procedure tolerated the procedure well without signs or symptoms of complications prior to transfer to the recovery area continued monitoring without incident. The patient was then transferred to the recovery area where they were observed for an appropriate time after the injection. The patient reported a VAS score of 7 prior to the procedure and a post-procedure VAS of 0. POST OP INSTRUCTIONS The patient was provided a Pain Log to continue to record their response to the target-specific procedure prior to follow-up visit with their referring physician. Additionally, specific post-injection care instructions and a contact number to our office were provided if concerns arise regarding possible complications associated with the procedure are suspected.
== END 2024-12-29 15:28 | disposition home or self-care (01) ==
PROVIDERS: Family Provider Family Medicine; PCP Family Medicine; Referring Provider Physical Medicine & Rehabilitation; Visit Provider Physical Medicine & Rehabilitation
DX: M48.061 Spinal stenosis, lumbar region without neurogenic claudication (principal); M51.16 Intervertebral disc disorders with radiculopathy, lumbar region; M47.26 Other spondylosis with radiculopathy, lumbar region
CPT/HCPCS: 64483; 99152; J0702; J1100; J2250; J3490

== ENCOUNTER → 2025-08-17 10:03 | Outpatient (CLI) | payer MEDICARE, OTHER, SELFPAY ==
--- NOTE | 2025-08-17 10:04 | DI.RAD.S_ITS ---
PROCEDURE: XR DEXA AXIAL SKELETON INDICATIONS: OSTEOPOROSIS SCREENING COMPARISON: None. FINDINGS: Lumbar Spine: Bone mineral density 1.330 g/cm2, T score 2.6. Left Femoral Neck: Bone mineral density 0.889 g/cm2, T score 0.4. Left Hip: Bone mineral density 1.009 g/cm2, T score 0.5. Fracture Risk Calculation (when applicable): 10-year fracture risk of a major osteoporotic fracture 4.4 percent and of a hip fracture 0.5 percent. (T score greater or equal to -1.0 to: NORMAL) (T score from -1.1 to -2.4: OSTEOPENIA) (T score less than or equal to -2.5: OSTEOPOROSIS) IMPRESSION: Normal--- recommend repeat DEXA as clinically indicated. Follow-up guidelines as follows: Osteoporosis: Consider a repeat DEXA and Vertebral Fracture Assessment (VFA) exam in 2 years or sooner if medically necessary, to reassess this patient's status. Osteopenia: Consider a repeat DEXA in 2-3 years to reassess this patient's status, or if there is a new clinical indication. Normal: Consider a repeat DEXA in 5 years or sooner, or if there is a new clinical indication. All treatment decisions require clinical judgment and consideration of individual patient factors, including patient preferences, comorbidities, previous drug use, risk factors not captured in the FRAX model (e.g., frailty, falls, vitamin D deficiency, increased bone turnover, interval significant decline in bone density ) and possible under- or over-estimation of fracture risk by FRAX. In addition, the NOF Guide recommends that FDA-approved medical therapies be considered in postmenopausal women and men age >= 50 years with a: * Hip or vertebral (clinical or morphometric) fracture * T-score of <=-2.5 at the spine or hip * Ten-year fracture probability by FRAX of >= 3% for hip fracture or >=20% for major osteoporotic fracture. Dictated by: Karson Slaughter M.D. on 08/17/2025 at 21:53 Approved by: Karson Slaughter M.D. on 08/17/2025 at 21:55
== END ==
PROVIDERS: Family Provider Family Medicine; PCP Family Medicine; Referring Provider Family Medicine; Visit Provider Family Medicine
DX: M81.0 Age-related osteoporosis without current pathological fracture (principal)
CPT/HCPCS: 77080

== ENCOUNTER → 2025-09-21 12:03 | Outpatient (CLI) | payer MEDICARE, OTHER, SELFPAY ==
--- NOTE | 2025-09-21 12:05 | DI.NM.S_ITS ---
PROCEDURE: NM ANA PAULA PERF SPECT R&S PHARM Rest and pharmacological stress myocardial perfusion SPECT with gated imaging and ejection fraction RADIOPHARMACEUTICAL: 24.9 mCi Tc-99m tetrafosmin IV at rest and 25.5 mCi Tc-99m tetrafosmin IV at peak effect of pharmacological stress. [id number]-[id number] was performed. INDICATIONS: NUCLEAR PQRS ATTESTATIONS: Measure 322 - Is this imaging test primarily performed on a low-risk surgery patient for preoperative evaluation within 30 days preceding their low-risk non-cardiac surgery? Low-risk surgery is defined as cardiac or myocardial infarction less than 1%, including (but not limited to) endoscopic procedures, superficial procedures, cataract surgery, and excisional breast surgery: Answer: No Measure 323 - Is this imaging test performed primarily for the monitoring of an asymptomatic patient who had percutaneous coronary intervention on the visit date or within 2 years of the visit date? Answer: No Measure 324 - Is this imaging test performed primarily for the initial detection and risk assessment on an asymptomatic, low coronary heart disease patient? Low CHD risk definition = clinicians should consider the maximum number of available patient factors used to estimate risk based on [place] (ATP III criteria), typically age, gender, diabetes, smoking status, and use of blood pressure medication, and integrate age appropriate estimates for missing elements, such as LDL or standard blood pressure. Answer: No TECHNIQUE: Radiopharmaceutical was injected at peak stress test, and also at rest. SPECT images were obtained. SPECT myocardial perfusion images were displayed in short axis, horizontal long axis, and vertical long axis views. Gated images were reviewed using DocuratedQUANT software. COMPARISON: None. CARDIAC STRESS: A pharmacologic stress test was performed under the supervision of an attending staff, using an infusion of 0.4 mg of Lexiscan. Hemodynamic data: There is normal blood pressure and heart rate response to pharmacologic stress. Symptoms: The patient denied anginal chest pain. Aminophylline: None EKG: No diagnostic changes of ischemia due to underlying atrial sensed and ventricular paced rhythm.. FINDINGS: Raw data: There is good myocardial uptake of radiotracer. No significant motion artifacts. Mdqo-nw-xkibl ratio is not available (normal is less than 0.38 for tetrafosmin tracer). Left ventricle function: Gated images demonstrate normal left ventricular wall thickening. No segmental wall motion abnormalities. No transient ischemic dilation; TID is 1.25 (normal less than 1.3). Left ventricle resting end diastolic volume is 119 mL. Left ventricle stress ejection fraction is 70%; normal range is above 45%. Myocardial perfusion: Rest images had moderate hypoperfusion in the apical segment. Stress images had the same perfusion defect. There was increased subdiaphragmatic activity in both the rest and stress images. Prone images demonstrated no perfusion defects. IMPRESSION: 1. Negative Lexiscan myocardial perfusion scan for ischemia and infarction. Dictated by: Addy Armijo M.D. on 09/24/2025 at 15:27 Approved by: Addy Armijo M.D. on 09/24/2025 at 15:29
== END ==
LOC: NUCM 12:04
PROVIDERS: Family Provider Family Medicine; PCP Family Medicine; Referring Provider Family Medicine; Visit Provider Internal Medicine Cardiovascular Disease
DX: R06.02 Shortness of breath (principal)
CPT/HCPCS: 78452; 93017; A9502; J2785

== ENCOUNTER → 2025-09-24 13:31 | Outpatient (CLI) | payer MEDICARE, OTHER, SELFPAY ==
--- NOTE | 2025-09-24 13:33 | DI.ECHO.S_ITS ---
[place] +---------+ Hospital : : [address] : : [place] : : [id number] : : Phone: [phone] Echocardiogram Report + + :Name: EUGENIA HYMAN Study Date: 09/24/2025 Height: 71 in : :[facility] ReadingLocation: Weight: 207 lb : : Gender: Male BSA: 2.1 m2 : :: 1955 Age: 69 yrs BP: 154/83 mmHg: :Ordering Physician: GINNY, : :NORMA Piedra Performed By: Manas Yang : :Referring: NORMA GROSS : + + Interpretation Summary The ejection fraction is estimated to be 55-60%. Normal diastolic function. The right ventricle is normal in size and function. No significant valvular abnormalities. Pulmonary artery pressures cannot be estimated because of the lack of a measurable TR jet velocity but the IVC suggests a CVP of around 3 mmHg. Compared to the prior study 06/05/2024, no significant change. Procedure: A two-dimensional transthoracic echocardiogram with color flow and Doppler was performed. The study quality was technically adequate. Comparison is made with the echocardiogram of 06/05/2024. The heart rate ranged between 60-69 bpm during the study. Left Ventricle: The left ventricle is normal in size and wall thickness. Left ventricular systolic function is normal. The ejection fraction is estimated to be 55-60%. Normal diastolic function. Right Ventricle: The right ventricle is normal in size and function. Atria: The left atrial size is normal. Right atrial size is normal. There is no Doppler evidence for an interatrial shunt. Mitral Valve: The mitral valve leaflets appear mildly thickened. There is mild mitral annular calcification. There is no mitral valve stenosis. There is trace mitral regurgitation. Aortic Valve: The aortic valve is trileaflet. The aortic valve opens well. There is no aortic valve stenosis. No aortic regurgitation is present. Tricuspid Valve: The tricuspid valve leaflets are thickened and/or calcified, but open well. There is trace tricuspid regurgitation. Pulmonary artery pressures cannot be estimated because of the lack of a measurable TR jet velocity but the IVC suggests a CVP of around 3 mmHg. Pulmonic Valve: The pulmonic valve is not well seen, but is grossly normal. There is mild pulmonic regurgitation. Great Vessels: The aortic root is normal size. The ascending aorta is normal in size. The aortic arch could not be visualized. The IVC is of normal diameter and collapses greater than 50% with a sniff. This suggests a low right atrial pressure of 3 mm Hg. Pericardium/ Pleura There is no pericardial effusion. MMode/2D Measurements & Calculations LVIDd: 5.2 cm LVOT diam: 2.2 cm LVIDs: 3.2 cm Ao root diam: 3.2 cm FS: 37.2 % asc Aorta Diam: 3.0 cm IVSd: 1.1 cm LVPWd: 1.0 cm LV leal. diameter/BSA (cm/m^2): 2.4 LV sys. diameter/BSA (cm/m^2): 1.5 LA A2 area: 19.0 cm2 RA long axis: 5.9 cm LA A4 area: 22.1 cm2 RA area: 13.4 cm2 LA length (vol): 5.8 cm RA vol: 25.7 ml LA vol: 61.0 ml RA : 12.0 ml/m2 LA vol index: 28.5 ml/m2 IVC diam: 1.4 cm RVD1 (basal): 2.5 cm RVD2 (mid): 2.1 cm TAPSE: 2.2 cm Doppler Measurements & Calculations Ao V2 max: 119.2 cm/sec LVOT Max Jonathan: 97.4 cm/sec Ao V2 mean: 83.2 cm/sec LV V1 max P.8 mmHg Ao max P.7 mmHg LV V1 VTI: 19.2 cm Ao mean P.2 mmHg SORAIDA(I,D): 2.9 cm2 Ao V2 VTI: 25.2 cm SORAIDA(V,D): 3.1 cm2 sev ratio: 0.76 SORAIDA indexed to BSA (cm^2/m^2): 1.3 MV E max jonathan: 86.0 cm/sec TR max jonathan: 235.3 cm/sec MV A max jonathan: 125.5 cm/sec TR max P.2 mmHg MV E/A: 0.69 PA V2 max: 93.0 cm/sec Med Peak E' Jonathan: 4.3 cm/sec PA V2 mean: 67.0 cm/sec E/E' med: 20.2 PA mean P.0 mmHg Lat Peak E' Jonathan: 4.7 cm/sec PA pr(Accel): 31.5 mmHg E/E' lat: 18.5 E/e' average: 19.4 MV dec time: 0.21 sec MVA(VTI): 2.0 cm2 MV V2 mean: 78.4 cm/sec SV(LVOT): 72.1 ml MV mean P.7 mmHg MV V2 VTI: 35.6 cm Qp/Qs (V,Ao): 1.0/2.4 Qp/Qs (V,LVOT): 1.1/1.0 Reading Physician:09:42 PM
== END ==
LOC: NUCM 13:32
PROVIDERS: Family Provider Family Medicine; PCP Family Medicine; Referring Provider Internal Medicine Cardiovascular Disease; Visit Provider Internal Medicine Cardiovascular Disease
DX: I34.81 Nonrheumatic mitral (valve) annulus calcification (principal); I37.1 Nonrheumatic pulmonary valve insufficiency; R06.02 Shortness of breath
CPT/HCPCS: 93306